=== PATIENT | female | born 1975 | race Caucasian/White ===

== ENCOUNTER → 2016-04-27 | Outpatient (CLI) | payer MEDICARE, OTHER ==
[2016-04-27 13:59] LABS: Non-African American GFR(MDRD) >60 (>60 ml/min/1.73 sqM)
--- NOTE | 2016-04-27 15:11 | MR ---
EXAMINATION TYPE: MR brain wo/w con DATE OF EXAM: 04/27/2016 2:55 PM COMPARISON: NONE HISTORY: Headaches and dizziness. TECHNIQUE: Multiplanar, multisequence images of the brain and brainstem is performed without and with IV contras t, utilizing 20 mL intravenous MultiHance . FINDINGS: Diffusion weighted images demonstrate no evidence of a recent infarct or other diffusion ab normality. There is no extra-axial fluid collection or significant white matter signal abnormality. The ventricular system and cisternal spaces are normal in size and appearance. The brain volume is age appropriate. Midline structures demonstrate normal morphology. The craniocervical junction appears within normal limits. Post contrast images demonstrate no abnormal enhancement. The dural venous sinuses appear pa tent. Mild mucosal thickening inferior left maxillary sinus and ethmoid sinuses bilaterally, left sli ghtly worse than right is present. The globes are intact bilaterally. No suspicious opacification of mastoid air cells is seen. IMPRESSION: Some mild chronic paranasal sinus disease as detailed above otherwise unremarkable study.
== END | disposition home or self-care (01) ==
LOC: RADMRIMAIN 13:14
PROVIDERS: ATTEND Family Medicine
DX: R51 Headache (principal)
CPT/HCPCS: 82565; 70553; A9577

== ENCOUNTER 2017-05-17 00:27 | Emergency (ER) | payer BC, MEDICARE ==
[2017-05-17 00:45] VITALS: RESP 18
--- NOTE | 2017-05-17 01:07 | ED ---
General Adult HPI - General Chief complaint: Upper Respiratory Infection Stated complaint: Cough/Sinus/NVD Time Seen by Provider: 05/17/17 00:50 Source: patient, RN notes reviewed Mode of arrival: ambulatory Limitations: no limitations - History of Present Illness Initial comments: This a 42-year-old female presents emergency Department with multiple complaints. Patient states she's had cough congestion last 2 weeks. Patient states it's not improving she's been trying some [id number] medications. She states she is concerned that she may have pneumonia as she's had in the past. Which apparently complains of sinus congestion runny nose. Patient states her cough is productive at times no shortness breath and denies any chest pain. She states her last one week she's felt that she's had some dysuria and started having some dull achy pain on the left flank region. She denies any hematuria she does admit to some dysuria with no vaginal bleeding or vaginal discharge. - Related Data Home Medications Medication Instructions Recorded Confirmed Albuterol Sulfate [Proair Hfa] 1 - 2 puff INHALATION RT-Q6H PRN 04/12/14 Atomoxetine HCl [Strattera] 100 mg PO QAM 01/31/16 01/31/16 Cariprazine HCl [Vraylar] 3 mg PO DAILY 01/31/16 01/31/16 Divalproex [Depakote] 250 mg PO BID 01/31/16 01/31/16 Insulin Aspart Protam & Aspart 25 unit SQ AC-TID 01/31/16 01/31/16 [NovoLOG MIX 70-30 Flexpen] Insulin Detemir [Levemir] 125 unit SQ HS 01/31/16 01/31/16 Nortriptyline [Pamelor] 10 mg PO HS 01/31/16 01/31/16 QUEtiapine [SEROquel] 400 mg PO HS 01/31/16 01/31/16 clonazePAM [KlonoPIN] 0.5 mg PO TID 01/31/16 01/31/16 rOPINIRole HCL [Requip] 2 mg PO HS 01/31/16 01/31/16 Previous Rx's Medication Instructions Recorded Atorvastatin [Lipitor] 40 mg PO DAILY #30 tab 02/01/16 Fenofibrate [Lofibra] 160 mg PO DAILY #30 tab 02/01/16 Metoprolol Tartrate [Lopressor] 25 mg PO BID #60 tab 02/01/16 Amoxicillin/Potassium Clav 1 tab PO Q12HR #20 tab 05/17/17 [Augmentin 875-125 Tablet] Phenazopyridine [Pyridium] 200 mg PO TID #6 tablet 05/17/17 Allergies Allergy/AdvReac Type Severity Reaction Status Date / Time shellfish derived Allergy Unknown Anaphylaxis Verified 05/17/17 00:41 celery Allergy Rash/Hives Verified 05/17/17 00:41 codeine Allergy Unknown Verified 05/17/17 00:41 gabapentin Allergy Unknown Verified 05/17/17 00:41 iodine Allergy Anaphylaxis Verified 05/17/17 00:41 morphine Allergy Unknown Verified 05/17/17 00:41 onion Allergy Unknown Verified 05/17/17 00:41 Sulfa (Sulfonamide Allergy Unknown Verified 05/17/17 00:41 Antibiotics) tomato Allergy Nausea & Verified 05/17/17 00:41 Vomiting & Diarrhea tramadol Allergy Unknown Verified 05/17/17 00:41 cilanto Allergy Anaphylaxis Uncoded 05/17/17 00:41 Review of Systems ROS Statement: Those systems with pertinent positive or pertinent negative responses have been documented in the HPI. ROS Other: All systems not noted in ROS Statement are negative. Past Medical History Past Medical History: Asthma, Diabetes Mellitus, Fibromyalgia Additional Past Medical History / Comment(s): NEUROPATHY, SPINA BIFIDA, GOUT, urinary retention, chronic pain to her back and legs History of Any Multi-Drug Resistant Organisms: None Reported Past Surgical History: Section, Cholecystectomy, Hysterectomy, Orthopedic Surgery, Tonsillectomy Additional Past Surgical History / Comment(s): Arthroscopic LEFT KNEE, KIDNEY SURGERY AT AGE 7 Past Anesthesia/Blood Transfusion Reactions: No Reported Reaction Past Psychological History: Anxiety, Bipolar, Depression, Schizophrenia Smoking Status: Never smoker Past Alcohol Use History: None Reported Past Drug Use History: None Reported - Past Family History Mother Additional Family Medical History / Comment(s): Mother is alive at age 60 with history of RA, Fibromyalgia. Father Family Medical History: Diabetes Mellitus Additional Family Medical History / Comment(s): Father is alive at age 68 with history of diabetes and sleep apnea. Brother(s) Additional Family Medical History / Comment(s): Patient has 2 brothers. One is healthy and the other has mental health issues and chronic back pain. She does not have any sisters. She has one daughter with bipolar and ADHD. General Exam Limitations: no limitations General appearance: alert, in no apparent distress Head exam: Present: atraumatic, normocephalic, normal inspection Eye exam: Present: normal appearance, PERRL, EOMI. Absent: scleral icterus, conjunctival injection, periorbital swelling ENT exam: Present: normal exam, normal oropharynx, mucous membranes moist, TM's normal bilaterally, normal external ear exam Neck exam: Present: normal inspection, full ROM. Absent: tenderness, meningismus, lymphadenopathy Respiratory exam: Present: normal lung sounds bilaterally. Absent: respiratory distress, wheezes, rales, rhonchi, stridor Cardiovascular Exam: Present: regular rate, normal rhythm, normal heart sounds. Absent: systolic murmur, diastolic murmur, rubs, gallop, clicks GI/Abdominal exam: Present: soft, normal bowel sounds. Absent: distended, tenderness, guarding, rebound, rigid Back exam: Present: full ROM. Absent: tenderness, CVA tenderness (R), CVA tenderness (L) Course Vital Signs 05/17/17 05/17/17 00:41 01:15 Temperature 98.2 F Pulse Rate 114 H Respiratory 18 18 Rate Blood Pressure 133/75 O2 Sat by Pulse 96 Oximetry Medical Decision Making - Medical Decision Making 42-year-old female presented emergency department for cough and congestion. Chest x-ray is unremarkable. Patient has acute sinusitis will be given antibiotics. Patient did have some dysuria and frequency though most likely related to her hyperglycemia. Patient is advised to check her blood sugar more frequently she'll follow-up with her primary care physician return parameters were discussed. - Lab Data Lab Results 05/17/17 05/17/17 Range/Units 00:45 01:43 POC Glucose (mg/dL) 220 H (75-99) mg/dL POC Glu [employer] ID Juanita, [place] Urine Color Light Yellow Urine Appearance Clear (Clear) Urine pH 7.0 (5.0-8.0) Ur Specific [place] 1.021 (1.001-1.035) Urine Protein Negative (Negative) Urine Glucose (UA) 4+ H (Negative) Urine Ketones Negative (Negative) Urine Blood Negative (Negative) Urine Nitrite Negative (Negative) Urine Bilirubin Negative (Negative) Urine Urobilinogen <2.0 (<2.0) mg/dL Ur Leukocyte Esterase Negative (Negative) Disposition Clinical Impression: Sinusitis, Dysuria, Hyperglycemia Disposition: HOME SELF-CARE Condition: Stable Instructions: Upper Respiratory Infection (ED) Additional Instructions: Please return to the Emergency Department if symptoms worsen or any other concerns. Prescriptions: Amoxicillin/Potassium Clav [Augmentin 875-125 Tablet] 1 tab PO Q12HR #20 tab Phenazopyridine [Pyridium] 200 mg PO TID #6 tablet Referrals: Trace Clark DO [Primary Care Provider] - 1-2 days Time of Disposition: 01:49
[2017-05-17 01:12] LABS: Appearance,Urine Clear (Clear); Bilirubin,Urine Negative (Negative); Blood,Urine Negative (Negative); Color,Urine Light Yellow; Glucose,Urine (UA) 4+ (Negative); Ketones,Urine Negative (Negative); Leukocyte Esterase,Urine Negative (Negative); Nitrite,Urine Negative (Negative); Protein,Urine Negative (Negative); Specific Gravity,Urine 1.021 (1.001-1.035); Urobilinogen,Urine <2.0 mg/dL (<2.0)
--- NOTE | 2017-05-17 01:39 | XR ---
EXAMINATION TYPE: XR chest 2V DATE OF EXAM: 05/17/2017 COMPARISON: NONE HISTORY: Asthma and cough TECHNIQUE: Frontal and lateral views of the chest are obtained. FINDINGS: Heart and mediastinum are normal. Lungs are clear. Diaphragm is normal. Bony thorax appear s normal. IMPRESSION: No cardiopulmonary disease. Significant calcific tendinitis noted at the right shoulder joint.
[2017-05-17 01:48] LABS: Glucose,Whole Blood 220 mg/dL (75-99)
[2017-05-17 02:05] VITALS: PULSE 98; TEMP 98
[2017-05-17 02:06] VITALS: BP 145/91
== END 2017-05-17 02:06 | disposition home or self-care (01) ==
LOC: EC 00:27
DX: J32.9 Chronic sinusitis, unspecified (principal); E11.65 Type 2 diabetes mellitus with hyperglycemia; R30.0 Dysuria; M79.7 Fibromyalgia; G62.9 Polyneuropathy, unspecified; Q05.9 Spina bifida, unspecified; F41.9 Anxiety disorder, unspecified; F31.9 Bipolar disorder, unspecified; F20.9 Schizophrenia, unspecified; Z79.4 Long term (current) use of insulin; Z79.899 Other long term (current) drug therapy; Z88.2 Allergy status to sulfonamides; Z88.5 Allergy status to narcotic agent; Z88.8 Allergy status to other drugs, medicaments and biological substances; Z91.013 Allergy to seafood; Z91.018 Allergy to other foods; Z91.048 Other nonmedicinal substance allergy status
CPT/HCPCS: 36415; 71046; 81003; 99283

== ENCOUNTER 2017-07-05 19:57 | Emergency (ER) | payer BC, MEDICARE ==
[2017-07-05] MEDS ORDERED: KETOROLAC 30 MG/ML 1 ML VIAL IVP STA ×2 (21:08→22:32)
[2017-07-05] MEDS ORDERED: SODIUM CHLORIDE 0.9% 1,000 ML IV STA (21:08)
[2017-07-05] MEDS ORDERED: diphenhydrAMINE 50 MG/ML 1 ML VIAL IVP STA (21:08)
[2017-07-05] MEDS ORDERED: METOCLOPRAMIDE 5 MG/ML 2 ML VIAL IVP STA (21:08)
[2017-07-05 22:07] VITALS: TEMP 97.7
--- NOTE | 2017-07-05 22:17 | ED ---
Headache HPI - General Chief Complaint: Headache Stated Complaint: mirgaine/back spasms Time Seen by Provider: 07/05/17 21:01 Source: RN notes reviewed Mode of arrival: ambulatory Limitations: no limitations - History of Present Illness Initial Comments: This is a 42-year-old female who presents to the emergency department with chief complaint of migraine and back spasms for the past 3 days. Patient states that she does have a history of migraines but that this current migraine is the worst one that she has had in a while. She states that this is worse than normal. She describes the headache as constant, sharp and pounding and involves the left side of her head with radiation towards the back of the head. Patient admits to associated nausea and vomiting. She states that nothing has made the headache better or worse. She's been taking [id number] Tylenol and Motrin with minimal relief. Patient does report a history of chronic back pain. She states that she takes medical marijuana but no prescription medications. Denies any recent falls, injuries or trauma. Denies fevers or chills, chest pain or shortness of breath, abdominal pain. Denies saddle paresthesias or loss of bladder or bowel function. Denies dysuria or hematuria. - Related Data Home Medications Medication Instructions Recorded Confirmed Albuterol Sulfate [Proair Hfa] 1 - 2 puff INHALATION RT-Q6H PRN 04/12/14 Atomoxetine HCl [Strattera] 100 mg PO QAM 01/31/16 07/05/17 Divalproex [Depakote] 250 mg PO BID 01/31/16 07/05/17 Insulin Aspart Protam & Aspart 25 unit SQ AC-TID 01/31/16 07/05/17 [NovoLOG MIX 70-30 Flexpen] Insulin Detemir [Levemir] 100 unit SQ BID 01/31/16 07/05/17 Nortriptyline [Pamelor] 10 mg PO HS 01/31/16 07/05/17 clonazePAM [KlonoPIN] 0.5 mg PO TID 01/31/16 07/05/17 rOPINIRole HCL [Requip] 2 mg PO HS 01/31/16 07/05/17 Previous Rx's Medication Instructions Recorded Atorvastatin [Lipitor] 40 mg PO DAILY #30 tab 02/01/16 Fenofibrate [Lofibra] 160 mg PO DAILY #30 tab 02/01/16 Metoprolol Tartrate [Lopressor] 25 mg PO BID #60 tab 02/01/16 Cyclobenzaprine [Flexeril] 10 mg PO TID #12 tab 07/05/17 Allergies Allergy/AdvReac Type Severity Reaction Status Date / Time shellfish derived Allergy Unknown Anaphylaxis Verified 07/05/17 20:36 celery Allergy Rash/Hives Verified 07/05/17 20:36 codeine Allergy Unknown Verified 07/05/17 20:36 gabapentin Allergy Unknown Verified 07/05/17 20:36 iodine Allergy Anaphylaxis Verified 07/05/17 20:36 morphine Allergy Unknown Verified 07/05/17 20:36 onion Allergy Unknown Verified 07/05/17 20:36 Sulfa (Sulfonamide Allergy Unknown Verified 07/05/17 20:36 Antibiotics) tomato Allergy Nausea & Verified 07/05/17 20:36 Vomiting & Diarrhea tramadol Allergy Unknown Verified 07/05/17 20:36 cilanto Allergy Anaphylaxis Uncoded 07/05/17 20:01 Review of Systems ROS Statement: Those systems with pertinent positive or pertinent negative responses have been documented in the HPI. ROS Other: All systems not noted in ROS Statement are negative. Past Medical History Past Medical History: Asthma, Diabetes Mellitus, Fibromyalgia Additional Past Medical History / Comment(s): NEUROPATHY, SPINA BIFIDA, GOUT, urinary retention, chronic pain to her back and legs History of Any Multi-Drug Resistant Organisms: None Reported Past Surgical History: Section, Cholecystectomy, Hysterectomy, Orthopedic Surgery, Tonsillectomy Additional Past Surgical History / Comment(s): Arthroscopic LEFT KNEE, KIDNEY SURGERY AT AGE 7 Past Anesthesia/Blood Transfusion Reactions: No Reported Reaction Past Psychological History: Anxiety, Bipolar, Depression, Schizophrenia Smoking Status: Never smoker Past Alcohol Use History: None Reported Past Drug Use History: None Reported - Past Family History Mother Additional Family Medical History / Comment(s): Mother is alive at age 60 with history of RA, Fibromyalgia. Father Family Medical History: Diabetes Mellitus Additional Family Medical History / Comment(s): Father is alive at age 68 with history of diabetes and sleep apnea. Brother(s) Additional Family Medical History / Comment(s): Patient has 2 brothers. One is healthy and the other has mental health issues and chronic back pain. She does not have any sisters. She has one daughter with bipolar and ADHD. General Exam - General Exam Comments Initial Comments: General: Awake and alert, well-developed; in no apparent distress. HEENT: Head atraumatic, normocephalic. Pupils are equal, round and reactive to light. Extraocular movements intact. Oropharynx moist without erythema or exudate. Neck: Supple. Normal ROM. No tenderness. Cardiovascular: Regular rate and rhythm. No murmurs, rubs or gallops. Chest symmetrical. Respiratory: Lungs clear to auscultation bilaterally. No wheezes, rales or rhonchi. Normal respiratory effort with no use of accessory muscles. Musculoskeletal: Normal ROM of spine. There is tenderness on palpation of thoracic and lumbar paraspinal muscles. Sensation is intact. Pedal pulses are 2+, equal and palpable bilaterally. Skin: [place], warm and dry without rashes or lesions. Neurological: Alert and oriented x3. CN II-XII grossly intact. Speech is fluent and answers are appropriate. No focal neuro deficits. Psychiatric: Normal mood and affect. No overt signs of depression or anxiety noted. Limitations: no limitations Course Vital Signs 07/05/17 07/05/17 07/05/17 19:59 21:01 22:50 Temperature 98.4 F 97.7 F Pulse Rate 103 H 98 96 Respiratory 18 16 19 Rate Blood Pressure 130/70 125/58 118/70 O2 Sat by Pulse 99 98 96 Oximetry Medical Decision Making - Medical Decision Making This is a 42-year-old female who presents to the emergency department with chief complaint of headache and back spasms. Patient states she does have a history of migraines but that the current headache is worse than her normal. Computed tomography scan of the brain was obtained and revealed no acute abnormalities. Patient given headache cocktail as well as Norflex while in the emergency department. Patient states that her symptoms have markedly improved. She will be discharged home with a prescription for Flexeril. Recommended follow-up with her primary care physician. Patient is in agreement with plan and voices understanding. She is in no acute distress. All questions answered. - Radiology Data Radiology results: report reviewed CT brain without contrast conclusion: Left maxillary minimal sinusitis. Negative computed tomography scan of the brain. Disposition Clinical Impression: Migraine, Back muscle spasm Disposition: HOME SELF-CARE Condition: Good Instructions: Acute Headache (ED), Muscle Spasm (ED) Additional Instructions: Please take medications as prescribed. Please follow up with primary care provider within 1-2 days. Return to emergency department if symptoms should worsen or any concerns arise. Prescriptions: Cyclobenzaprine [Flexeril] 10 mg PO TID #12 tab Referrals: Trace Clark DO [Primary Care Provider] - 1-2 days Time of Disposition: 23:34
--- NOTE | 2017-07-05 22:21 | CT ---
EXAMINATION TYPE: CT brain wo con DATE OF EXAM: 07/05/2017 COMPARISON: NONE HISTORY: Migrane x3 days CT DLP: 1032.2 mGycm. Automated Exposure Control for Dose Reduction was Utilized. TECHNIQUE: CT scan of the head is performed without contrast. FINDINGS: Ventricles of normal size. There is no mass effect nor midline shift. There is no sign of intracranial hemorrhage. There is small fluid level in the left maxillary sinus. The calvarium appea rs intact. I see no bony destructive process. CONCLUSION: Left maxillary minimal sinusitis. Negative CT scan of the brain.
[2017-07-05] MEDS ORDERED: ORPHENADRINE 30 MG/ML 2 ML VIAL IVP STA (22:32)
[2017-07-06 00:03] VITALS: BP 119/67; PULSE 85; RESP 16
== END 2017-07-06 00:03 | disposition home or self-care (01) ==
LOC: EC 19:57
DX: G43.909 Migraine, unspecified, not intractable, without status migrainosus (principal); M62.830 Muscle spasm of back; E11.40 Type 2 diabetes mellitus with diabetic neuropathy, unspecified; F20.9 Schizophrenia, unspecified; F31.9 Bipolar disorder, unspecified; F41.9 Anxiety disorder, unspecified; Z79.4 Long term (current) use of insulin; Z79.899 Other long term (current) drug therapy; Z88.5 Allergy status to narcotic agent; Z88.6 Allergy status to analgesic agent; Z88.2 Allergy status to sulfonamides; Z91.018 Allergy to other foods; Z88.8 Allergy status to other drugs, medicaments and biological substances
CPT/HCPCS: 70450; 99283; 96374; 96375 ×3; 96376; J1200; J2360; J2765; J1885

== ENCOUNTER 2017-07-31 18:58 | Emergency (ER) | payer BC, MEDICARE ==
[2017-07-31] MEDS ORDERED: ONDANSETRON 4 MG/2 ML VIAL IVP STA (19:20)
[2017-07-31] MEDS ORDERED: PANTOPRAZOLE 40 MG/10 ML VIAL IVP STA (19:20)
[2017-07-31] MEDS ORDERED: SODIUM CHLORIDE 0.9% 1,000 ML IV STA (19:20)
[2017-07-31] MEDS ORDERED: MORPHINE SULFATE 4 MG/ML SYRINGE IVP STA ×2 (19:26→21:08)
[2017-07-31] MEDS ORDERED: FAMOTIDINE 20 MG/2 ML VIAL IV STA (19:26)
[2017-07-31] MEDS ORDERED: diphenhydrAMINE 50 MG/ML 1 ML VIAL IVP STA (19:26)
--- NOTE | 2017-07-31 19:27 | ED ---
General Adult HPI - General Chief complaint: Abdominal Pain Stated complaint: Back pain Time Seen by Provider: 07/31/17 19:26 Source: patient, RN notes reviewed, old records reviewed Mode of arrival: ambulatory Limitations: no limitations - History of Present Illness Initial comments: This is a 42-year-old female the ER for evaluation. Patient is ER for flank pain back pain and cortical kidney pain. Kidney stone pain. Patient has history of kidney stones. Also states her blood sugars been running high. No fevers. No nausea no vomiting. No other abdominal pain. No non-diarrhea no urinary complaints - Related Data Home Medications Medication Instructions Recorded Confirmed Albuterol Sulfate [Proair Hfa] 1 - 2 puff INHALATION RT-Q6H PRN 04/12/14 Atomoxetine HCl [Strattera] 100 mg PO QAM 01/31/16 07/31/17 Divalproex [Depakote] 250 mg PO BID 01/31/16 07/31/17 Insulin Aspart Protam & Aspart 25 unit SQ AC-TID 01/31/16 07/31/17 [NovoLOG MIX 70-30 Flexpen] Insulin Detemir [Levemir] 80 unit SQ AC-BRKFST 01/31/16 07/31/17 Nortriptyline [Pamelor] 10 mg PO HS 01/31/16 07/31/17 clonazePAM [KlonoPIN] 0.5 mg PO TID 01/31/16 07/31/17 rOPINIRole HCL [Requip] 2 mg PO HS 01/31/16 07/31/17 Insulin Detemir [Levemir] 90 unit SQ AC-SUPPER 07/31/17 07/31/17 Previous Rx's Medication Instructions Recorded Atorvastatin [Lipitor] 40 mg PO DAILY #30 tab 02/01/16 Fenofibrate [Lofibra] 160 mg PO DAILY #30 tab 02/01/16 Metoprolol Tartrate [Lopressor] 25 mg PO BID #60 tab 02/01/16 Cyclobenzaprine [Flexeril] 10 mg PO TID #12 tab 07/05/17 HYDROcodone/APAP 5-325MG [[place] 1 tab PO Q6HR PRN #20 tab 07/31/17 5-325] Naproxen [Naprosyn] 500 mg PO Q12HR PRN #30 tab 07/31/17 Ondansetron Odt [Zofran ODT] 4 mg PO Q8HR PRN #20 tab 07/31/17 Allergies Allergy/AdvReac Type Severity Reaction Status Date / Time shellfish derived Allergy Unknown Anaphylaxis Verified 07/31/17 20:00 celery Allergy Rash/Hives Verified 07/31/17 20:00 codeine Allergy Unknown Verified 07/31/17 20:00 gabapentin Allergy Unknown Verified 07/31/17 20:00 iodine Allergy Anaphylaxis Verified 07/31/17 20:00 morphine Allergy Unknown Verified 07/31/17 20:00 onion Allergy Unknown Verified 07/31/17 20:00 Sulfa (Sulfonamide Allergy Unknown Verified 07/31/17 20:00 Antibiotics) tomato Allergy Nausea & Verified 07/31/17 20:00 Vomiting & Diarrhea tramadol Allergy Unknown Verified 07/31/17 20:00 cilanto Allergy Anaphylaxis Uncoded 07/05/17 20:01 Review of Systems ROS Statement: Those systems with pertinent positive or pertinent negative responses have been documented in the HPI. ROS Other: All systems not noted in ROS Statement are negative. Past Medical History Past Medical History: Asthma, Diabetes Mellitus, Fibromyalgia Additional Past Medical History / Comment(s): NEUROPATHY, SPINA BIFIDA, GOUT, urinary retention, chronic pain to her back and legs History of Any Multi-Drug Resistant Organisms: None Reported Past Surgical History: Section, Cholecystectomy, Hysterectomy, Orthopedic Surgery, Tonsillectomy Additional Past Surgical History / Comment(s): Arthroscopic LEFT KNEE, KIDNEY SURGERY AT AGE 7 Past Anesthesia/Blood Transfusion Reactions: No Reported Reaction Past Psychological History: Anxiety, Bipolar, Depression, Schizophrenia Smoking Status: Never smoker Past Alcohol Use History: None Reported Past Drug Use History: None Reported - Past Family History Mother Additional Family Medical History / Comment(s): Mother is alive at age 60 with history of RA, Fibromyalgia. Father Family Medical History: Diabetes Mellitus Additional Family Medical History / Comment(s): Father is alive at age 68 with history of diabetes and sleep apnea. Brother(s) Additional Family Medical History / Comment(s): Patient has 2 brothers. One is healthy and the other has mental health issues and chronic back pain. She does not have any sisters. She has one daughter with bipolar and ADHD. General Exam Limitations: no limitations General appearance: alert, in no apparent distress Head exam: Present: atraumatic, normocephalic, normal inspection Eye exam: Present: normal appearance, PERRL, EOMI. Absent: scleral icterus, conjunctival injection, periorbital swelling ENT exam: Present: normal exam, mucous membranes moist Neck exam: Present: normal inspection. Absent: tenderness, meningismus, lymphadenopathy Respiratory exam: Present: normal lung sounds bilaterally. Absent: respiratory distress, wheezes, rales, rhonchi, stridor Cardiovascular Exam: Present: regular rate, normal rhythm, normal heart sounds. Absent: systolic murmur, diastolic murmur, rubs, gallop, clicks GI/Abdominal exam: Present: soft, normal bowel sounds. Absent: distended, tenderness, guarding, rebound, rigid Extremities exam: Present: normal inspection, full ROM, normal capillary refill. Absent: tenderness, pedal edema, joint swelling, calf tenderness Back exam: Present: normal inspection Neurological exam: Present: alert, oriented X3, CN II-XII intact Psychiatric exam: Present: normal affect, normal mood Skin exam: Present: warm, dry, intact, normal color. Absent: rash Course Vital Signs 07/31/17 07/31/17 19:10 20:44 Temperature 98.4 F 98.7 F Pulse Rate 62 74 Respiratory 18 18 Rate Blood Pressure 105/62 122/71 O2 Sat by Pulse 98 95 Oximetry Medical Decision Making - Lab Data Result diagrams: 07/31/17 20:37 Lab Results 07/31/17 Range/Units 20:37 WBC 10.1 (3.8-10.6) k/uL RBC 4.75 (3.80-5.40) m/uL Hgb 14.5 (11.4-16.0) gm/dL Hct 42.2 (34.0-46.0) % MCV 88.9 (80.0-100.0) fL MCH 30.4 (25.0-35.0) pg MCHC 34.2 (31.0-37.0) g/dL RDW 13.4 (11.5-15.5) % Plt Count 317 (150-450) k/uL Neutrophils % 49 % Lymphocytes % 41 % Monocytes % 5 % Eosinophils % 3 % Basophils % 1 % Neutrophils # 5.0 (1.3-7.7) k/uL Lymphocytes # 4.1 (1.0-4.8) k/uL Monocytes # 0.5 (0-1.0) k/uL Eosinophils # 0.3 (0-0.7) k/uL Basophils # 0.1 (0-0.2) k/uL Disposition Clinical Impression: Kidney stone, Flank pain Disposition: HOME SELF-CARE Condition: Good Instructions: Flank Pain (ED), Kidney Stones (ED) Prescriptions: HYDROcodone/APAP 5-325MG [[place] 5-325] 1 tab PO Q6HR PRN #20 tab PRN Reason: Pain Naproxen [Naprosyn] 500 mg PO Q12HR PRN #30 tab PRN Reason: Pain Ondansetron Odt [Zofran ODT] 4 mg PO Q8HR PRN #20 tab PRN Reason: nausea/vomiting Is patient prescribed a controlled substance at d/c from ED?: Yes If prescribed controlled substance>3 days was MAPS reviewed?: No When asked, does pt state using other controlled substances?: Yes Referrals: Trace Clark DO [Primary Care Provider] - 1-2 days
[2017-07-31 20:59] LABS: Basophils # (A) 0.1 k/uL (0-0.2); Basophils % (A) 1 %; Eosinophils # (A) 0.3 k/uL (0-0.7); Eosinophils % (A) 3 %; HCT 42.2 % (34.0-46.0); HGB 14.5 gm/dL (11.4-16.0); Lymphocytes # (A) 4.1 k/uL (1.0-4.8); Lymphocytes % (A) 41 %; MCH 30.4 pg (25.0-35.0); MCHC 34.2 g/dL (31.0-37.0); MCV 88.9 fL (80.0-100.0); Mean Platelet Volume 7.6; Monocytes # (A) 0.5 k/uL (0-1.0); Monocytes % (A) 5 %; Neutrophils % (A) 49 %; Platelet Count 317 k/uL (150-450); RBC 4.75 m/uL (3.80-5.40); RDW 13.4 % (11.5-15.5); WBC 10.1 k/uL (3.8-10.6)
[2017-07-31 21:17] LABS: ALT 33 U/L (9-52); AST 21 U/L (14-36); Albumin 4.3 g/dL (3.5-5.0); Alkaline Phosphatase 107 U/L (38-126); Amylase 42 U/L (30-110); Anion Gap 12 mmol/L; Blood Urea Nitrogen 10 mg/dL (7-17); Calcium 9.5 mg/dL (8.4-10.2); Carbon Dioxide 28 mmol/L (22-30); Chloride 100 mmol/L (98-107); Glucose 189 mg/dL (74-99); Lipase 73 U/L (23-300); Potassium 3.6 mmol/L (3.5-5.1); Sodium 140 mmol/L (137-145); Total Bilirubin 0.3 mg/dL (0.2-1.3); Total Protein 6.8 g/dL (6.3-8.2)
--- NOTE | 2017-07-31 21:57 | CT ---
EXAMINATION TYPE: CT abdomen pelvis wo con DATE OF EXAM: 07/31/2017 COMPARISON: NONE HISTORY: Bilateral flank pain. History of renal stones. CT DLP: 914.3 mGycm Automated exposure control for dose reduction was used. TECHNIQUE: Helical acquisition of images was performed from the lung bases through the pelvis. FINDINGS: Lung bases are clear. There is no pleural effusion. Heart size is normal. Liver spleen pancreas appear normal. There are clips from cholecystectomy. Bile ducts are not dilated . Kidneys show satisfactory contrast opacification. There is no hydronephrosis. There is a 1.5 cm rou nded low density area in the left adrenal gland. There is no retroperitoneal adenopathy. There is no ascites. I see no intestinal wall thickening. The re are no dilated loops. Bladder distends smoothly. There is no sign of a pelvic mass. There is no fr ee fluid in the pelvis. Appendix is not seen. There is no sign of appendicitis. The kidneys have normal size and contour. There is no hydronephrosis. Ureters are not dilated. There is no evidence of a renal mass or calculus. I see no bony destructive process. Lumbar spine is intact . IMPRESSION: NO EVIDENCE OF RENAL STONE OR OBSTRUCTION. NO SIGN OF ACUTE ABDOMEN AND PELVIS.
[2017-07-31 22:25] LABS: Amorphous Sediment,Urine Rare /hpf; Appearance,Urine Clear (Clear); Bacteria,Urine Rare /hpf; Bilirubin,Urine Negative (Negative); Blood,Urine Negative (Negative); Color,Urine Light Yellow; Glucose,Urine (UA) 3+ (Negative); Ketones,Urine Negative (Negative); Leukocyte Esterase,Urine Trace (Negative); Mucus,Urine Rare /hpf; Nitrite,Urine Negative (Negative); Protein,Urine Negative (Negative); RBC,Urine <1 /hpf (0-5); Specific Gravity,Urine 1.014 (1.001-1.035); Squamous Epithelial Cell,Urine 2 /hpf (0-4); Urobilinogen,Urine <2.0 mg/dL (<2.0); WBC,Urine 3 /hpf (0-5)
[2017-07-31 23:01] VITALS: BP 111/63; PULSE 82; RESP 16; TEMP 98.6
== END 2017-07-31 23:18 | disposition home or self-care (01) ==
LOC: EC 18:58
DX: N20.0 Calculus of kidney (principal); E11.40 Type 2 diabetes mellitus with diabetic neuropathy, unspecified; J45.909 Unspecified asthma, uncomplicated; F31.9 Bipolar disorder, unspecified; F41.9 Anxiety disorder, unspecified; Z79.4 Long term (current) use of insulin; Z79.899 Other long term (current) drug therapy; Z88.2 Allergy status to sulfonamides; Z88.5 Allergy status to narcotic agent; Z88.8 Allergy status to other drugs, medicaments and biological substances; Z91.013 Allergy to seafood; Z91.018 Allergy to other foods; Z91.048 Other nonmedicinal substance allergy status; Z90.49 Acquired absence of other specified parts of digestive tract; Z98.890 Other specified postprocedural states; Z82.69 Family history of other diseases of the musculoskeletal system and connective tissue
CPT/HCPCS: 36415; 80053; 82150; 82009; 83690; 85025; 81001; 87086; 74176; 99285; 96374; 96375 ×4; 96376; 96361; J2270; J1200; J2405; C9113

== ENCOUNTER 2017-08-27 15:56 | Emergency (ER) | payer BC, MEDICARE ==
[2017-08-27] MEDS ORDERED: SODIUM CHLORIDE 0.9% 1,000 ML IV STA (16:35)
[2017-08-27] MEDS ORDERED: ONDANSETRON 4 MG/2 ML VIAL IVP STA (16:35)
[2017-08-27] MEDS ORDERED: MORPHINE SULFATE 2 MG/ML SYRINGE IV STA (16:38)
--- NOTE | 2017-08-27 16:38 | ED ---
General Adult HPI - General Chief complaint: Back Pain/Injury Stated complaint: Back pain Time Seen by Provider: 08/27/17 16:21 Source: patient Mode of arrival: ambulatory Limitations: no limitations - History of Present Illness Initial comments: Patient is a 42-year-old female presenting for abdominal pain and back pain. Patient states that for the last month, she has been having this discomfort and worsening in intensity. The abdominal pain is in the lower abdomen and radiating to the bilateral flanks. It is sharp now constant. At that time when it was originally starting, she was diagnosed with kidney stone for which she has chronic problems with. She admits to nausea and vomiting as well as decreased urination. She also has been having chills but no fevers. - Related Data Home Medications Medication Instructions Recorded Confirmed Albuterol Sulfate [Proair Hfa] 1 - 2 puff INHALATION RT-Q6H PRN 04/12/14 Atomoxetine HCl [Strattera] 100 mg PO QAM 01/31/16 07/31/17 Divalproex [Depakote] 250 mg PO BID 01/31/16 07/31/17 Insulin Aspart Protam & Aspart 25 unit SQ AC-TID 01/31/16 07/31/17 [NovoLOG MIX 70-30 Flexpen] Insulin Detemir [Levemir] 80 unit SQ AC-BRKFST 01/31/16 07/31/17 Nortriptyline [Pamelor] 10 mg PO HS 01/31/16 07/31/17 clonazePAM [KlonoPIN] 0.5 mg PO TID 01/31/16 07/31/17 rOPINIRole HCL [Requip] 2 mg PO HS 01/31/16 07/31/17 Insulin Detemir [Levemir] 90 unit SQ AC-SUPPER 07/31/17 07/31/17 Previous Rx's Medication Instructions Recorded Atorvastatin [Lipitor] 40 mg PO DAILY #30 tab 02/01/16 Fenofibrate [Lofibra] 160 mg PO DAILY #30 tab 02/01/16 Metoprolol Tartrate [Lopressor] 25 mg PO BID #60 tab 02/01/16 Cyclobenzaprine [Flexeril] 10 mg PO TID #12 tab 07/05/17 HYDROcodone/APAP 5-325MG [[place] 1 tab PO Q6HR PRN #20 tab 07/31/17 5-325] Naproxen [Naprosyn] 500 mg PO Q12HR PRN #30 tab 07/31/17 Ondansetron Odt [Zofran ODT] 4 mg PO Q8HR PRN #20 tab 07/31/17 Ondansetron Odt [Zofran Odt] 4 mg PO Q8HR PRN #15 tab 08/27/17 Allergies Allergy/AdvReac Type Severity Reaction Status Date / Time shellfish derived Allergy Unknown Anaphylaxis Verified 08/27/17 16:07 celery Allergy Rash/Hives Verified 08/27/17 16:07 codeine Allergy Unknown Verified 08/27/17 16:07 gabapentin Allergy Unknown Verified 08/27/17 16:07 iodine Allergy Anaphylaxis Verified 08/27/17 16:07 morphine Allergy Unknown Verified 08/27/17 16:07 onion Allergy Unknown Verified 08/27/17 16:07 Sulfa (Sulfonamide Allergy Unknown Verified 08/27/17 16:07 Antibiotics) tomato Allergy Nausea & Verified 08/27/17 16:07 Vomiting & Diarrhea tramadol Allergy Unknown Verified 08/27/17 16:07 cilanto Allergy Anaphylaxis Uncoded 08/27/17 16:07 Review of Systems ROS Statement: Those systems with pertinent positive or pertinent negative responses have been documented in the HPI. Constitutional: Negative for fatigue and fever. Positive for chills HENT: Negative for congestion. Respiratory: Negative for chest tightness, shortness of breath and wheezing. Negative for cough Cardiovascular: Negative for chest pain and palpitations. Gastrointestinal: Positive for abdominal pain. Negative for abdominal distention , diarrhea, positive for nausea and vomiting. Genitourinary: Negative for dysuria. Positive for changes in urinary frequency Musculoskeletal: Negative for back pain, neck pain and neck stiffness. Skin: Negative for color change. Neurological: Negative for dizziness, speech difficulty, weakness and light- headedness. Psychiatric/Behavioral: Negative for agitation and confusion. The patient is not nervous/anxious. ROS Other: All systems not noted in ROS Statement are negative. Past Medical History Past Medical History: Asthma, Diabetes Mellitus, Fibromyalgia Additional Past Medical History / Comment(s): NEUROPATHY, SPINA BIFIDA, GOUT, urinary retention, chronic pain to her back and legs History of Any Multi-Drug Resistant Organisms: None Reported Past Surgical History: Section, Cholecystectomy, Hysterectomy, Orthopedic Surgery, Tonsillectomy Additional Past Surgical History / Comment(s): Arthroscopic LEFT KNEE, KIDNEY SURGERY AT AGE 7 Past Anesthesia/Blood Transfusion Reactions: No Reported Reaction Past Psychological History: Anxiety, Bipolar, Depression, Schizophrenia Smoking Status: Never smoker Past Alcohol Use History: None Reported Past Drug Use History: None Reported - Past Family History Mother Additional Family Medical History / Comment(s): Mother is alive at age 60 with history of RA, Fibromyalgia. Father Family Medical History: Diabetes Mellitus Additional Family Medical History / Comment(s): Father is alive at age 68 with history of diabetes and sleep apnea. Brother(s) Additional Family Medical History / Comment(s): Patient has 2 brothers. One is healthy and the other has mental health issues and chronic back pain. She does not have any sisters. She has one daughter with bipolar and ADHD. General Exam - General Exam Comments Initial Comments: Constitutional: Pt is oriented to person, place, and time. Pt appears well- developed and well-nourished. No distress. HENT: Head: Normocephalic and atraumatic. Eyes: EOM are normal. Neck: Normal range of motion. Neck supple. Cardiovascular: Normal rate, regular rhythm, S1 normal, S2 normal and normal heart sounds. Exam reveals no gallop and no friction rub. No murmur heard. Pulmonary/Chest: Effort normal and breath sounds normal. No tachypnea and no bradypnea. No respiratory distress. No wheezes or rales noted. Abdominal: Soft. Bowel sounds are normal. Pt exhibits no shifting dullness, no distension, no pulsatile liver, no fluid wave, no abdominal bruit and no ascites. There is no tenderness. There is no rigidity, no rebound, no guarding, no tenderness at McBurney's point and negative Azul's sign. Musculoskeletal: Normal range of motion. Neurological: Pt is alert and oriented to person, place, and time. No cranial nerve deficit. Skin: Skin is warm and dry. No rash noted. Pt is not diaphoretic. No erythema. No pallor. Psychiatric: Pt has a normal mood and affect. Pt behavior is normal. Thought content normal. Limitations: no limitations Course Vital Signs 08/27/17 16:05 Temperature 98.0 F Pulse Rate 83 Respiratory 20 Rate Blood Pressure 119/72 O2 Sat by Pulse 100 Oximetry Medical Decision Making - Medical Decision Making Laboratory studies showed that there is no evidence of leukocytosis and urinalysis was performed and was contaminated. Based on physical exam as well as vital signs, it is not suspected that there is a urinary tract infection and therefore the patient was no surrounding antibiotics. Nonetheless, urine culture was obtained and pending. Additionally, CT abdomen was performed and showed no evidence of acute pathology including renal calculi or hydronephrosis. BMP also showed that renal function was preserved. It was explained that while there does not appear to be an emergent process, the etiology of the symptoms are still unclear and may need further workup as an outpatient if symptoms continue. Patient was reexamined prior to d/c and found to be resting comfortably in bed in no acute distress. Explained all labs and diagnostic test results and that we will discharge the patient home and patient is to follow up with PCP in 1-2 days and return to the ED if symptoms worsen. Pt is agreeable to plan. - Lab Data Result diagrams: 08/27/17 16:50 08/27/17 16:50 Lab Results 08/27/17 08/27/17 08/27/17 Range/Units 16:50 16:50 17:00 WBC 8.5 (3.8-10.6) k/uL RBC 5.25 (3.80-5.40) m/uL Hgb 16.3 H (11.4-16.0) gm/dL Hct 47.5 H (34.0-46.0) % MCV 90.4 (80.0-100.0) fL MCH 31.0 (25.0-35.0) pg MCHC 34.3 (31.0-37.0) g/dL RDW 14.2 (11.5-15.5) % Plt Count 319 (150-450) k/uL Neutrophils % 58 % Lymphocytes % 33 % Monocytes % 4 % Eosinophils % 2 % Basophils % 1 % Neutrophils # 5.0 (1.3-7.7) k/uL Lymphocytes # 2.8 (1.0-4.8) k/uL Monocytes # 0.4 (0-1.0) k/uL Eosinophils # 0.2 (0-0.7) k/uL Basophils # 0.1 (0-0.2) k/uL Sodium 144 (137-145) mmol/L Potassium 3.5 (3.5-5.1) mmol/L Chloride 101 (98-107) mmol/L Carbon Dioxide 28 (22-30) mmol/L Anion Gap 15 mmol/L BUN 13 (7-17) mg/dL Creatinine 0.71 (0.52-1.04) mg/dL Est GFR (CKD-EPI)AfAm >90 (>60 ml/min/1.73 sqM) Est GFR (CKD-EPI)NonAf >90 (>60 ml/min/1.73 sqM) Glucose 115 H (74-99) mg/dL Calcium 9.8 (8.4-10.2) mg/dL Magnesium 1.6 (1.6-2.3) mg/dL Total Bilirubin 0.5 (0.2-1.3) mg/dL AST 25 (14-36) U/L ALT 31 (9-52) U/L Alkaline Phosphatase 88 (38-126) U/L Total Protein 7.5 (6.3-8.2) g/dL Albumin 4.6 (3.5-5.0) g/dL Lipase 46 (23-300) U/L Urine Color Yellow Urine Appearance Cloudy H (Clear) Urine pH 6.0 (5.0-8.0) Ur Specific [place] 1.031 (1.001-1.035) Urine Protein 1+ H (Negative) Urine Glucose (UA) Negative (Negative) Urine Ketones 1+ H (Negative) Urine Blood Negative (Negative) Urine Nitrite Negative (Negative) Urine Bilirubin 1+ H (Negative) Urine Urobilinogen 3.0 (<2.0) mg/dL Ur Leukocyte Esterase Large H (Negative) Urine RBC 2 (0-5) /hpf Urine WBC 50 H (0-5) /hpf Ur Squamous Epith Cells 32 H (0-4) /hpf Amorphous Sediment Occasional H (None) /hpf Urine Bacteria Rare H (None) /hpf Urine Mucus Few H (None) /hpf Disposition Clinical Impression: Abdominal pain Disposition: HOME SELF-CARE Condition: Good Instructions: Abdominal Pain (ED) Prescriptions: Ondansetron Odt [Zofran Odt] 4 mg PO Q8HR PRN #15 tab PRN Reason: Nausea And Vomiting Is patient prescribed a controlled substance at d/c from ED?: No Referrals: Trace Clark DO [Primary Care Provider] - 1-2 days Time of Disposition: 18:27
[2017-08-27 17:02] LABS: Basophils # (A) 0.1 k/uL (0-0.2); Basophils % (A) 1 %; Eosinophils # (A) 0.2 k/uL (0-0.7); Eosinophils % (A) 2 %; HCT 47.5 % (34.0-46.0); HGB 16.3 gm/dL (11.4-16.0); Lymphocytes # (A) 2.8 k/uL (1.0-4.8); Lymphocytes % (A) 33 %; MCHC 34.3 g/dL (31.0-37.0); MCV 90.4 fL (80.0-100.0); Mean Platelet Volume 7.1; Monocytes # (A) 0.4 k/uL (0-1.0); Monocytes % (A) 4 %; Neutrophils % (A) 58 %; Platelet Count 319 k/uL (150-450); RBC 5.25 m/uL (3.80-5.40); RDW 14.2 % (11.5-15.5); WBC 8.5 k/uL (3.8-10.6)
[2017-08-27 17:12] LABS: ALT 31 U/L (9-52); AST 25 U/L (14-36); Albumin 4.6 g/dL (3.5-5.0); Alkaline Phosphatase 88 U/L (38-126); Anion Gap 15 mmol/L; Blood Urea Nitrogen 13 mg/dL (7-17); Calcium 9.8 mg/dL (8.4-10.2); Carbon Dioxide 28 mmol/L (22-30); Chloride 101 mmol/L (98-107); Glucose 115 mg/dL (74-99); Lipase 46 U/L (23-300); Magnesium 1.6 mg/dL (1.6-2.3); Potassium 3.5 mmol/L (3.5-5.1); Sodium 144 mmol/L (137-145); Total Bilirubin 0.5 mg/dL (0.2-1.3); Total Protein 7.5 g/dL (6.3-8.2)
--- NOTE | 2017-08-27 17:25 | CT ---
EXAMINATION TYPE: CT abdomen pelvis wo con DATE OF EXAM: 08/27/2017 HISTORY: Patient complains of bilateral flank pain, dysuria, and gross hematuria. CT DLP: 547.9 mGycm. Automated Exposure Control for Dose Reduction was Utilized. TECHNIQUE: CT scan of the abdomen and pelvis is performed without oral or IV contrast. COMPARISON: CT abdomen and pelvis from July 31, 2017 FINDINGS: Within the limitations of a non-contrast study, the following observations are made. LUNG BASES: No significant abnormality is appreciated. LIVER/GB: Cholecystectomy clips are redemonstrated. Liver remains diffusely low dense consistent with fatty infiltration. PANCREAS: No significant abnormality is seen. SPLEEN: No significant abnormality is seen. ADRENALS: No significant abnormality is seen. KIDNEYS: No renal calculi or hydronephrosis is present bilaterally. There is stable 1 cm low dense le zuleyma lower pole level left kidney felt to reflect simple cyst axial image 71. No intraluminal calculu s is seen in poorly distended bladder. BOWEL: No suspicious small or large bowel dilatation. Normal-appearing appendix is seen from base of cecum GENITAL ORGANS: Uterus is surgically absent. Remnant ovaries are not suspiciously enlarged. Scattered pelvic phleboliths are seen. LYMPH NODES: No greater than 1cm abdominal or pelvic lymph nodes are appreciated. OSSEOUS STRUCTURES: Spine is straightened with mild multilevel spurring. OTHER: No significant additional abnormality is seen. IMPRESSION: No renal stones or hydronephrosis is seen bilaterally. No suspicious new or acute finding is seen to account for patient's symptoms.
[2017-08-27 17:32] LABS: Amorphous Sediment,Urine Occasional /hpf; Appearance,Urine Cloudy (Clear); Bacteria,Urine Rare /hpf; Bilirubin,Urine 1+ (Negative); Blood,Urine Negative (Negative); Color,Urine Yellow; Glucose,Urine (UA) Negative (Negative); Ketones,Urine 1+ (Negative); Leukocyte Esterase,Urine Large (Negative); Mucus,Urine Few /hpf; Nitrite,Urine Negative (Negative); Protein,Urine 1+ (Negative); RBC,Urine 2 /hpf (0-5); Specific Gravity,Urine 1.031 (1.001-1.035); Squamous Epithelial Cell,Urine 32 /hpf (0-4); WBC,Urine 50 /hpf (0-5)
[2017-08-27 18:42] VITALS: BP 130/68; PULSE 80; RESP 16; TEMP 98.2
== END 2017-08-27 18:30 | disposition home or self-care (01) ==
LOC: EC 15:56
DX: R10.9 Unspecified abdominal pain (principal); R11.2 Nausea with vomiting, unspecified; J45.909 Unspecified asthma, uncomplicated; E11.9 Type 2 diabetes mellitus without complications; M79.7 Fibromyalgia; F41.9 Anxiety disorder, unspecified; F31.9 Bipolar disorder, unspecified; F20.9 Schizophrenia, unspecified; Z79.4 Long term (current) use of insulin; Z79.899 Other long term (current) drug therapy; Z88.2 Allergy status to sulfonamides; Z88.5 Allergy status to narcotic agent; Z88.8 Allergy status to other drugs, medicaments and biological substances; Z91.013 Allergy to seafood; Z91.018 Allergy to other foods; Z91.048 Other nonmedicinal substance allergy status
CPT/HCPCS: 36415; 80053; 83690; 83735; 85025; 81001; 87086; 74176; 99284; 96374; 96375; J2405; J2270

== ENCOUNTER 2017-12-08 21:58 | Observation (INO) | payer BC, MEDICARE ==
[2017-12-09 00:25] VITALS: BMI 37.8
[2017-12-09] MEDS ORDERED: ALBUTEROL NEBULIZED 2.5 MG/3 ML INHALATION PRN (00:51)
[2017-12-09] MEDS ORDERED: NAPROXEN 250 MG TAB PO PRN (00:51)
[2017-12-09] MEDS ORDERED: ONDANSETRON 4 MG/2 ML VIAL IVP PRN (00:55)
[2017-12-09] MEDS ORDERED: clonazePAM 0.5 MG TAB PO SCH (01:00)
[2017-12-09] MEDS: MORPHINE SULFATE 2 MG/ML SYRINGE IVP PRN ×2 (01:16→05:45)
[2017-12-09] MEDS: ZOLPIDEM 10 MG TAB PO SCH ×2 (01:26→21:02)
[2017-12-09] MEDS: METOPROLOL TARTRATE 25 MG TAB PO SCH ×3 (01:26→21:40)
[2017-12-09] MEDS: CYCLOBENZAPRINE 10 MG TAB PO SCH ×4 (01:27→21:40)
[2017-12-09] MEDS: DIAZEPAM 5 MG TAB PO SCH ×4 (01:27→21:02)
[2017-12-09] MEDS: NORTRIPTYLINE 10 MG CAP PO SCH ×2 (01:42→21:40)
[2017-12-09] MEDS: DIVALPROEX 250 MG TABLET.DR PO SCH ×3 (01:42→21:40)
[2017-12-09 02:32] LABS: Basophils # (A) 0.1 k/uL (0-0.2); Basophils % (A) 1 %; Eosinophils # (A) 0.2 k/uL (0-0.7); Eosinophils % (A) 1 %; HCT 42.7 % (34.0-46.0); HGB 13.7 gm/dL (11.4-16.0); Lymphocytes # (A) 3.6 k/uL (1.0-4.8); Lymphocytes % (A) 35 %; MCH 31.8 pg (25.0-35.0); MCV 99.4 fL (80.0-100.0); Mean Platelet Volume 6.7; Monocytes # (A) 0.5 k/uL (0-1.0); Monocytes % (A) 4 %; Neutrophils # (A) 5.9 k/uL (1.3-7.7); Neutrophils % (A) 57 %; Platelet Count 300 k/uL (150-450); RDW 14.2 % (11.5-15.5); WBC 10.3 k/uL (3.8-10.6)
[2017-12-09 02:42] LABS: Anion Gap 8 mmol/L; Blood Urea Nitrogen 7 mg/dL (7-17); Calcium 8.7 mg/dL (8.4-10.2); Carbon Dioxide 25 mmol/L (22-30); Chloride 106 mmol/L (98-107); Glucose 121 mg/dL (74-99); Potassium 3.8 mmol/L (3.5-5.1); Sodium 139 mmol/L (137-145)
[2017-12-09 02:46] LABS: Creatine Kinase 66 U/L (30-135)
[2017-12-09 02:59] LABS: Creatine Kinase MB 0.2 ng/mL (0.0-2.4); Troponin I <0.012 ng/mL (0.000-0.034)
[2017-12-09] MEDS: HYDROcodone/APAP 5-325MG 1 EACH TAB PO PRN ×4 (04:49→23:40)
[2017-12-09 07:06] LABS: Glucose,Whole Blood 111 mg/dL (75-99)
[2017-12-09 08:34] LABS: Creatine Kinase 62 U/L (30-135)
[2017-12-09 08:47] LABS: Creatine Kinase MB <0.2 ng/mL (0.0-2.4); Troponin I <0.012 ng/mL (0.000-0.034)
[2017-12-09] MEDS: ATORVASTATIN 40 MG TAB PO SCH (09:27)
[2017-12-09] MEDS: ATOMOXETINE HCL 100 MG PO SCH (09:27)
[2017-12-09] MEDS: FENOFIBRATE 160 MG TAB PO SCH (09:27)
--- NOTE | 2017-12-09 09:38 | P.CRDCN ---
History of Present Illness History of present illness: This is Dr. Dobbins dictating a consult on this patient The patient was interviewed and examined by me IMPRESSION / ASSESSMENT: Vasovagal syncope, recurrent episodes Diabetes Dyslipidemia Increased BMI PLAN: The echo Doppler study ambulate in the hallways she has not had an acute myocardial infarction ECG is normal She will go home from a cardiac standpoint and follow up with Dr. King HPI Patient was at work when she experienced nausea sweating dizziness or loss of consciousness when she got out of a sitting position and stood up and walked. She's had several such episodes in the past She of diabetes, dyslipidemia, on atorvastatin 40 mg by mouth daily and take metoprolol 25 mg twice daily as well as fenofibrate ROS: No fever chills or rigors, no cough, phlegm or expectoration, no nausea, vomiting or diarrhea, no hematuria, dysuria, no musculoskeletal complaints, no strokes or seizures, no skin lesions. EXAMINATION afebrile 98.2F pulse rate in the 70s normal respirations blood pressure 120/77 mmHg Heart sounds are normal normal S1 normal S2 no murmurs or gallops no rub Breath sounds are clear no rhonchi no crackles Abdomen is soft nontender Extremities are warm no edema Increased BMI of 37.8 noted REVIEW OF LABS, ECG Hemoglobin 13.7 electrolytes normal cardiac enzymes 2 normal D-dimer at the outside hospital is normal at 0.2 Past Medical History Past Medical History: Asthma, Chest Pain / Angina, Diabetes Mellitus, Fibromyalgia, GERD/Reflux, Hyperlipidemia, Hypertension, Myocardial Infarction ( [place]), Neurologic Disorder, Pneumonia, Seizure Disorder, Sleep Apnea/CPAP/BIPAP Additional Past Medical History / Comment(s): NEUROPATHY, SPINA BIFIDA, GOUT, urinary retention, chronic pain to her back and legs Last Myocardial Infarction Date:: 2009 History of Any Multi-Drug Resistant Organisms: None Reported Past Surgical History: Section, Cholecystectomy, Hysterectomy, Orthopedic Surgery, Tonsillectomy Additional Past Surgical History / Comment(s): Arthroscopic LEFT KNEE, KIDNEY SURGERY AT AGE 7 Past Anesthesia/Blood Transfusion Reactions: Postoperative Nausea & Vomiting ( PONV) Smoking Status: Never smoker - Past Family History Mother Additional Family Medical History / Comment(s): Mother is alive at age 60 with history of RA, Fibromyalgia. Father Family Medical History: Diabetes Mellitus Additional Family Medical History / Comment(s): Father is alive at age 68 with history of diabetes and sleep apnea. Brother(s) Additional Family Medical History / Comment(s): Patient has 2 brothers. One is healthy and the other has mental health issues and chronic back pain. She does not have any sisters. She has one daughter with bipolar and ADHD. Medications and Allergies Home Medications Medication Instructions Recorded Confirmed Type Albuterol Sulfate [Proair Hfa] 1 - 2 puff INHALATION RT-Q6H PRN 04/12/14 History Atomoxetine HCl [Strattera] 100 mg PO QAM 01/31/16 12/09/17 History Divalproex [Depakote] 250 mg PO BID 01/31/16 12/09/17 History Nortriptyline [Pamelor] 10 mg PO HS 01/31/16 12/09/17 History clonazePAM [KlonoPIN] 0.5 mg PO TID 01/31/16 12/09/17 History rOPINIRole HCL [Requip] 2 mg PO HS 01/31/16 12/09/17 History Atorvastatin [Lipitor] 40 mg PO DAILY #30 tab 02/01/16 12/09/17 Rx Fenofibrate [Lofibra] 160 mg PO DAILY #30 tab 02/01/16 12/09/17 Rx Metoprolol Tartrate [Lopressor] 25 mg PO BID #60 tab 02/01/16 12/09/17 Rx Cyclobenzaprine [Flexeril] 10 mg PO TID #12 tab 07/05/17 12/09/17 Rx HYDROcodone/APAP 5-325MG [[place] 1 tab PO Q6HR PRN #20 tab 07/31/17 12/09/17 Rx 5-325] Insulin Detemir [Levemir] 90 unit SQ AC-SUPPER 07/31/17 12/09/17 History Naproxen [Naprosyn] 500 mg PO Q12HR PRN #30 tab 07/31/17 12/09/17 Rx Ondansetron Odt [Zofran Odt] 4 mg PO Q8HR PRN #15 tab 08/27/17 12/09/17 Rx Diazepam [Valium] 5 mg PO TID 12/09/17 12/09/17 History Zolpidem [Ambien] 10 mg PO HS 12/09/17 12/09/17 History Allergies Allergy/AdvReac Type Severity Reaction Status Date / Time shellfish derived Allergy Unknown Anaphylaxis Verified 08/27/17 16:07 celery Allergy Rash/Hives Verified 08/27/17 16:07 codeine Allergy Unknown Verified 08/27/17 16:07 gabapentin Allergy Unknown Verified 08/27/17 16:07 iodine Allergy Anaphylaxis Verified 08/27/17 16:07 latex Allergy Rash/Hives Verified 12/09/17 00:20 onion Allergy Unknown Verified 08/27/17 16:07 Sulfa (Sulfonamide Allergy Unknown Verified 08/27/17 16:07 Antibiotics) tramadol Allergy Unknown Verified 08/27/17 16:07 cilanto Allergy Anaphylaxis Uncoded 08/27/17 16:07 Physical Exam Vitals: Vital Signs Temp Pulse Pulse Resp BP Pulse Ox 12/09/17 07:07 70 12/09/17 04:00 98.2 F 70 18 120/77 97 12/09/17 00:00 98.1 F 89 18 148/87 97 Intake and Output 12/08/17 12/09/17 12/09/17 22:59 06:59 14:59 Other: # Voids 1 Weight 84.8 kg Results 12/09/17 02:16 12/09/17 02:16 Cardiac Enzymes 12/09/17 12/09/17 Range/Units 01:58 07:54 CK-MB (CK-2) 0.2 <0.2 (0.0-2.4) ng/mL Troponin I <0.012 <0.012 (0.000-0.034) ng/mL CBC 12/09/17 Range/Units 02:16 WBC 10.3 (3.8-10.6) k/uL RBC 4.30 (3.80-5.40) m/uL Hgb 13.7 (11.4-16.0) gm/dL Hct 42.7 (34.0-46.0) % Plt Count 300 (150-450) k/uL Comprehensive Metabolic Panel 12/09/17 Range/Units 02:16 Sodium 139 (137-145) mmol/L Potassium 3.8 (3.5-5.1) mmol/L Chloride 106 (98-107) mmol/L Carbon Dioxide 25 (22-30) mmol/L BUN 7 (7-17) mg/dL Creatinine 0.57 (0.52-1.04) mg/dL Glucose 121 H (74-99) mg/dL Calcium 8.7 (8.4-10.2) mg/dL Current Medications Generic Name Dose Route Start Last Admin Trade Name Freq PRN Reason Stop Dose Admin Hydrocodone Bitart/Acetaminophen 1 each 12/09/17 00:51 12/09/17 04:49 [place] 5-325 PO 1 each Q6HR PRN Administration MODERATE Pain Albuterol Sulfate 2.5 mg 12/09/17 00:51 12/09/17 07:06 Ventolin Nebulized INHALATION 2.5 mg RT-Q6H PRN Administration Shortness Of Breath Atorvastatin Calcium 40 mg 12/09/17 09:00 12/09/17 09:27 Lipitor PO 40 mg DAILY GEE Administration Cyclobenzaprine HCl 10 mg 12/09/17 01:00 12/09/17 09:27 Flexeril PO 10 mg TID GEE Administration Diazepam 5 mg 12/09/17 01:00 12/09/17 09:27 Valium PO 5 mg TID [facility] Administration Divalproex Sodium 250 mg 12/09/17 01:00 12/09/17 09:27 Depakote PO 250 mg BID [facility] Administration Fenofibrate 160 mg 12/09/17 09:00 12/09/17 09:27 Lofibra PO 160 mg DAILY [facility] Administration Insulin Detemir 90 unit 12/09/17 17:30 Levemir SQ AC-SUPPER [facility] Metoprolol Tartrate 25 mg 12/09/17 01:00 12/09/17 09:27 Lopressor PO 25 mg BID GEE Administration Morphine Sulfate 2 mg 12/09/17 00:54 12/09/17 05:45 Morphine Sulfate (Inj) IVP 2 mg Q4H PRN Administration SEVERE Pain/Discomfort Naproxen 500 mg 12/09/17 00:51 Naprosyn PO Q12HR PRN MILD Pain Non-Formulary Medication 100 mg 12/09/17 09:00 12/09/17 09:27 Atomoxetine Hcl [Strattera] PO Not Given QAM GEE Nortriptyline HCl 10 mg 12/09/17 01:00 12/09/17 01:42 Pamelor PO 10 mg HS GEE Administration Ondansetron HCl 4 mg 12/09/17 00:55 Zofran IVP Q6HR PRN Nausea And Vomiting Ropinirole HCl 2 mg 12/09/17 01:00 12/09/17 01:26 Requip PO 2 mg HS GEE Administration Zolpidem Tartrate 10 mg 12/09/17 01:00 12/09/17 01:26 Ambien PO 10 mg HS GEE Administration Intake and Output 12/08/17 12/09/17 12/09/17 22:59 06:59 14:59 Other: # Voids 1 Weight 84.8 kg 12/09/17 02:16 12/09/17 02:16
[2017-12-09 12:02] LABS: Glucose,Whole Blood 145 mg/dL (75-99)
--- NOTE | 2017-12-09 12:24 | P.HPIM ---
History of Present Illness H&P Date: 12/09/17 Chief Complaint: Near syncope 42-year-old morbidly obese female with history of sleep disorder breathing and sleep apnea fibromyalgia depression and the morbid obesity also has a history of diabetes mellitus patient has chronic recurrent syncopal episode also has chronic aches and pain throughout the chest and the headache as well patient was brought into emergency department seen evaluated examined and subsequently admitted into the hospital patient is complaining of severe headache upper torso pain denies any shortness of breath patient has been eval by cardiovascular services for vasovagal syncopal episode, patient has not seen a neurologist in the past, Review of Systems All systems: negative Past Medical History Past Medical History: Asthma, Chest Pain / Angina, Diabetes Mellitus, Fibromyalgia, GERD/Reflux, Hyperlipidemia, Hypertension, Myocardial Infarction ( [place]), Neurologic Disorder, Pneumonia, Seizure Disorder, Sleep Apnea/CPAP/BIPAP Additional Past Medical History / Comment(s): NEUROPATHY, SPINA BIFIDA, GOUT, urinary retention, chronic pain to her back and legs Last Myocardial Infarction Date:: 2009 History of Any Multi-Drug Resistant Organisms: None Reported Past Surgical History: Section, Cholecystectomy, Hysterectomy, Orthopedic Surgery, Tonsillectomy Additional Past Surgical History / Comment(s): Arthroscopic LEFT KNEE, KIDNEY SURGERY AT AGE 7 Past Anesthesia/Blood Transfusion Reactions: Postoperative Nausea & Vomiting ( PONV) Smoking Status: Never smoker - Past Family History Mother Additional Family Medical History / Comment(s): Mother is alive at age 60 with history of RA, Fibromyalgia. Father Family Medical History: Diabetes Mellitus Additional Family Medical History / Comment(s): Father is alive at age 68 with history of diabetes and sleep apnea. Brother(s) Additional Family Medical History / Comment(s): Patient has 2 brothers. One is healthy and the other has mental health issues and chronic back pain. She does not have any sisters. She has one daughter with bipolar and ADHD. Medications and Allergies Home Medications Medication Instructions Recorded Confirmed Type Albuterol Sulfate [Proair Hfa] 1 - 2 puff INHALATION RT-Q6H PRN 04/12/14 History Nortriptyline [Pamelor] 10 mg PO HS 01/31/16 12/09/17 History rOPINIRole HCL [Requip] 2 mg PO HS 01/31/16 12/09/17 History Atorvastatin [Lipitor] 40 mg PO DAILY #30 tab 02/01/16 12/09/17 Rx Fenofibrate [Lofibra] 160 mg PO DAILY #30 tab 02/01/16 12/09/17 Rx Metoprolol Tartrate [Lopressor] 25 mg PO BID #60 tab 02/01/16 12/09/17 Rx HYDROcodone/APAP 5-325MG [[place] 1 tab PO Q6HR PRN #20 tab 07/31/17 12/09/17 Rx 5-325] Insulin Detemir [Levemir] 90 unit SQ AC-SUPPER 07/31/17 12/09/17 History Diazepam [Valium] 5 mg PO TID 12/09/17 12/09/17 History Zolpidem [Ambien] 10 mg PO HS 12/09/17 12/09/17 History Allergies Allergy/AdvReac Type Severity Reaction Status Date / Time shellfish derived Allergy Unknown Anaphylaxis Verified 08/27/17 16:07 celery Allergy Rash/Hives Verified 08/27/17 16:07 codeine Allergy Unknown Verified 08/27/17 16:07 gabapentin Allergy Unknown Verified 08/27/17 16:07 iodine Allergy Anaphylaxis Verified 08/27/17 16:07 latex Allergy Rash/Hives Verified 12/09/17 00:20 onion Allergy Unknown Verified 08/27/17 16:07 Sulfa (Sulfonamide Allergy Unknown Verified 08/27/17 16:07 Antibiotics) tramadol Allergy Unknown Verified 08/27/17 16:07 cilanto Allergy Anaphylaxis Uncoded 08/27/17 16:07 Physical Exam Vitals: Vital Signs Temp Pulse Pulse Resp BP Pulse Ox 12/09/17 08:00 98.0 F 90 18 102/69 98 12/09/17 07:07 70 12/09/17 04:00 98.2 F 70 18 120/77 97 12/09/17 00:00 98.1 F 89 18 148/87 97 Intake and Output 12/08/17 12/09/17 12/09/17 22:59 06:59 14:59 Other: # Voids 1 Weight 84.8 kg - Constitutional General appearance: disheveled, morbidly obese - EENT Eyes: PERRLA, normal appearance ENT: hearing grossly normal, normal oropharynx Ears: bilateral: normal - Neck Neck: normal ROM Carotids: bilateral: upstroke normal, bruit absent Thyroid: bilateral: normal size - Respiratory Respiratory: bilateral: CTA - Cardiovascular Heart sounds: normal: S1, S2 - Gastrointestinal General gastrointestinal: distended, soft - Neurologic Neurologic: CNII-XII intact - Musculoskeletal Musculoskeletal: gait normal, generalized weakness, strength equal bilaterally - Psychiatric Psychiatric: A&O x's 3, appropriate affect, intact judgment & insight Results CBC & Chem 7: 12/09/17 02:16 12/09/17 02:16 Labs: Abnormal Lab Results - Last 24 Hours (Table) 12/09/17 12/09/17 12/09/17 Range/Units 02:16 07:01 11:58 Glucose 121 H (74-99) mg/dL POC Glucose (mg/dL) 111 H 145 H (75-99) mg/dL Thrombosis Risk Factor Assmnt - Choose All That Apply Each Factor Represents 1 point: Age 41-60 years Thrombosis Risk Factor Assessment Total Risk Factor Score: 1 Thrombosis Risk Factor Assessment Level: Low Risk Assessment and Plan Assessment: Recurrent syncopal episode Severe morbid obesity Obstructive sleep apnea Severe fibromyalgia Chronic headaches Plan: Neurology consultation Taper down the pain medications tolerated Appreciate cardiovascular evaluation We'll follow clinical course closely further recommendations pending Time with Patient: Greater than 30
--- NOTE | 2017-12-09 14:32 | ECHOF ---
Referral Reason:chest pain MEASUREMENTS -------- HEIGHT: 132.1 cm WEIGHT: 84.4 kg BP: 120/77 IVSd: 1.6 cm (0.6 - 1.1) LVIDd: 3.2 cm (3.9 - 5.3) LVPWd: 1.1 cm (0.6 - 1.1) IVSs: 1.9 cm LVIDs: 1.5 cm LVPWs: 1.8 cm Ao Diam: 2.6 cm (2.0 - 3.7) AV Cusp: 1.9 cm (1.5 - 2.6) LA Diam: 3.3 cm (2.7 - 3.8) MV EXCURSION: 14.382 mm (> 18.000) MV EF SLOPE: 94 mm/s (70 - 150) EPSS: 0.2 cm MV E Brent: 0.96 m/s MV DecT: 164 ms MV A Brent: 0.65 m/s MV E/A Ratio: 1.48 RAP: 5.00 mmHg RVSP: 16.89 mmHg FINDINGS -------- Sinus rhythm. This was a technically good study. The left ventricular size is normal. There is mild concentric left ventricular hypertrophy. Overa ll left ventricular systolic function is normal with, an EF between 55 - 60 %. The right ventricle is normal in size and function. The left atrium is normal in size. The right atrium is normal in size. The aortic valve is trileaflet, and appears structurally normal. No aortic stenosis or regurgitation. The mitral valve leaflets are mildly thickened. Mild mitral regurgitation is present. Mild tricuspid regurgitation present. The right ventricular systolic pressure, as measured by Doppl er, is 16.89mmHg. Pulmonic valve appears structurally normal. The aortic root, ascending aorta and aortic arch are normal. Normal inferior vena cava with normal inspiratory collapse consistent with estimated right atrial pre ssure of 5 mmHg. The pericardium is normal. CONCLUSIONS -------- 1. Sinus rhythm. 2. This was a technically good study. 3. The left ventricular size is normal. 4. There is mild concentric left ventricular hypertrophy. 5. Overall left ventricular systolic function is normal with, an EF between 55 - 60 %. 6. The right ventricle is normal in size and function. 7. The left atrium is normal in size. 8. The right atrium is normal in size. 9. The aortic valve is trileaflet, and appears structurally normal. No aortic stenosis or regurgitati on. 10. The mitral valve leaflets are mildly thickened. 11. Mild mitral regurgitation is present. 12. Mild tricuspid regurgitation present. 13. The right ventricular systolic pressure, as measured by Doppler, is 16.89mmHg. 14. Pulmonic valve appears structurally normal. 15. The aortic root, ascending aorta and aortic arch are normal. 16. Normal inferior vena cava with normal inspiratory collapse consistent with estimated right atrial pressure of 5 mmHg. 17. The pericardium is normal. F[employer]GRAPHIC PRESS PLATE SETTER: Kristie Ivy RDCS
[2017-12-09 17:12] LABS: Glucose,Whole Blood 110 mg/dL (75-99)
[2017-12-09] MEDS: INSULIN DETEMIR 100 UNIT/ML 10 ML VIAL SQ SCH (17:22)
[2017-12-09 20:57] LABS: Glucose,Whole Blood 156 mg/dL (75-99)
--- NOTE | 2017-12-09 23:13 | P.CNNES ---
History of Present Illness Consult date: 12/09/17 Reason for Consult: Patient admitted for recurrent syncope and dizziness. History of Present Illness: This patient is a 42-year-old right-handed white female who was brought to [facility] yesterday for evaluation of recurrent syncopal episodes and chronic headaches. Patient states that she had seen her primary care physician Dr. Xiao about 2 weeks ago. She is being treated for diabetes as well as fibromyalgia. She has not been on any specific treatment for fibromyalgia however for the last several months. She also has underlying anxiety disorder for which she follows with a psychiatrist. The patient was brought in to the hospital yesterday for further evaluation. She was seen in the emergency room and subsequent admitted to Hospital. She does follow in the outpatient medical clinic with Dr. Guillermo Xiao. The patient states that she does suffer from sleep apnea and does use a CPAP machine at night. More recently about a few weeks ago she had an acute syncopal episode at work. She was sent to the hospital from her work where she was further evaluated at [facility] where she underwent a routine computed tomography scan of the brain which was reported normal. She was then transferred to [facility] for further ongoing medical evaluation. The patient states that her headaches are mostly on her left side. They did do generate significant pain to the point that she becomes lightheaded and dizzy. The patient was seen by cardiology today and was diagnosed with vasovagal syncope. She is to undergo an echocardiogram as well as review of her EKG. The patient states overall her headaches have shown very little improvement since admission to hospital. On palpation she does have significant occipital tenderness on palpation bilaterally with left greater than right side. The patient otherwise states she has been feeling good. We have reviewed our findings with her in detail. She comes today for neurology follow-up visit and further recommendations. Review of Systems Constitutional: Denies chills, Denies fever Eyes: denies blurred vision, denies pain Ears, nose, mouth and throat: Denies headache, Denies sore throat Cardiovascular: Denies chest pain, Denies shortness of breath Respiratory: Denies cough Gastrointestinal: Denies abdominal pain, Denies diarrhea, Denies nausea, Denies vomiting Genitourinary: Denies dysuria, Denies hematuria Musculoskeletal: Denies myalgias Integumentary: Denies pruritus, Denies rash Neurological: Reports change in mentation, Reports confusion, Reports headaches , Reports memory loss, Reports tingling, Denies numbness, Denies weakness Psychiatric: Denies anxiety, Denies depression Endocrine: Denies fatigue, Denies weight change Past Medical History Past Medical History: Asthma, Chest Pain / Angina, Diabetes Mellitus, Fibromyalgia, GERD/Reflux, Hyperlipidemia, Hypertension, Myocardial Infarction ( CT), Neurologic Disorder, Pneumonia, Seizure Disorder, Sleep Apnea/CPAP/BIPAP Additional Past Medical History / Comment(s): NEUROPATHY, SPINA BIFIDA, GOUT, urinary retention, chronic pain to her back and legs Last Myocardial Infarction Date:: 2009 History of Any Multi-Drug Resistant Organisms: None Reported Past Surgical History: Section, Cholecystectomy, Hysterectomy, Orthopedic Surgery, Tonsillectomy Additional Past Surgical History / Comment(s): Arthroscopic LEFT KNEE, KIDNEY SURGERY AT AGE 7 Past Anesthesia/Blood Transfusion Reactions: Postoperative Nausea & Vomiting ( PONV) Smoking Status: Never smoker - Past Family History Mother Additional Family Medical History / Comment(s): Mother is alive at age 60 with history of RA, Fibromyalgia. Father Family Medical History: Diabetes Mellitus Additional Family Medical History / Comment(s): Father is alive at age 68 with history of diabetes and sleep apnea. Brother(s) Additional Family Medical History / Comment(s): Patient has 2 brothers. One is healthy and the other has mental health issues and chronic back pain. She does not have any sisters. She has one daughter with bipolar and ADHD. Medications and Allergies Home Medications Medication Instructions Recorded Confirmed Type Albuterol Sulfate [Proair Hfa] 1 - 2 puff INHALATION RT-Q6H PRN 04/12/14 History Nortriptyline [Pamelor] 10 mg PO HS 01/31/16 12/09/17 History rOPINIRole HCL [Requip] 2 mg PO HS 01/31/16 12/09/17 History Atorvastatin [Lipitor] 40 mg PO DAILY #30 tab 02/01/16 12/09/17 Rx Fenofibrate [Lofibra] 160 mg PO DAILY #30 tab 02/01/16 12/09/17 Rx Metoprolol Tartrate [Lopressor] 25 mg PO BID #60 tab 02/01/16 12/09/17 Rx HYDROcodone/APAP 5-325MG [Whittaker 1 tab PO Q6HR PRN #20 tab 07/31/17 12/09/17 Rx 5-325] Insulin Detemir [Levemir] 90 unit SQ AC-SUPPER 07/31/17 12/09/17 History Diazepam [Valium] 5 mg PO TID 12/09/17 12/09/17 History Zolpidem [Ambien] 10 mg PO HS 12/09/17 12/09/17 History Allergies Allergy/AdvReac Type Severity Reaction Status Date / Time shellfish derived Allergy Unknown Anaphylaxis Verified 08/27/17 16:07 celery Allergy Rash/Hives Verified 08/27/17 16:07 codeine Allergy Unknown Verified 08/27/17 16:07 gabapentin Allergy Unknown Verified 08/27/17 16:07 iodine Allergy Anaphylaxis Verified 08/27/17 16:07 latex Allergy Rash/Hives Verified 12/09/17 00:20 onion Allergy Unknown Verified 08/27/17 16:07 Sulfa (Sulfonamide Allergy Unknown Verified 08/27/17 16:07 Antibiotics) tramadol Allergy Unknown Verified 08/27/17 16:07 cilanto Allergy Anaphylaxis Uncoded 08/27/17 16:07 Physical Examination - Vital Signs Vital Signs: Vital Signs Temp Pulse Pulse Resp BP Pulse Ox 12/09/17 16:52 97.9 F 77 16 127/84 98 12/09/17 16:00 97.9 F 72 16 101/67 98 12/09/17 12:00 98.2 F 88 18 106/71 97 12/09/17 08:00 98.0 F 90 18 102/69 98 12/09/17 07:07 70 12/09/17 04:00 98.2 F 70 18 120/77 97 12/09/17 00:00 98.1 F 89 18 148/87 97 Intake and Output 12/09/17 12/09/17 12/09/17 06:59 14:59 22:59 Other: # Voids 1 Weight 84.8 kg - Constitutional General appearance: average body habitus, cooperative - EENT EENT: PERRL, mucous membranes moist - Respiratory Respiratory: lungs clear, normal breath sounds - Cardiovascular Cardiovascular: regular rate, normal S1, normal S2 Extremities: no peripheral edema bilaterally - Gastrointestinal Gastrointestinal: normoactive bowel sounds - Integumentary Integumentary: normal - Neurologic Cranial nerve examination: PERRL, EOMI, VFF, V1/V2/V3 grossly intact, face symmetric, intact gag reflex, intact corneal reflex, normal palatal elevation Speech examination: intact Sensorimotor examination: intact Motor examination - right side: 4/5: biceps, triceps, wrist flexion, wrist extension, land lease information clerk, hip flexors, knee extensors, dorsiflexion, toe extension (EHL) , plantarflexion Motor examination - left side: 4/5: biceps, triceps, wrist flexion, wrist extension, land lease information clerk, hip flexors, knee extensors, dorsiflexion, toe extension (EHL) , plantarflexion Detailed sensory examination: intact Reflex and gait examination: intact Reflexes: 1+: ankle, bicep, knee, tricep - Musculoskeletal Musculoskeletal: no pain - Psychiatric Psychiatric: mood/affect appropriate, cooperative Results - Laboratory Findings CBC and BMP: 12/09/17 02:16 12/09/17 02:16 Abnormal Lab Findings: Abnormal Labs 12/09/17 12/09/17 12/09/17 02:16 07:01 11:58 Glucose 121 H POC Glucose (mg/dL) 111 H 145 H 12/09/17 16:54 Glucose POC Glucose (mg/dL) 110 H Assessment and Plan (1) Vasovagal syncope Current Visit: Yes Status: Acute Code(s): R55 - SYNCOPE AND COLLAPSE SNOMED Code(s): 209365047 (2) Occipital neuritis Current Visit: Yes Status: Acute Code(s): M54.81 - OCCIPITAL NEURALGIA SNOMED Code(s): 08457594 (3) Obstructive sleep apnea Current Visit: Yes Status: Acute Code(s): G47.33 - OBSTRUCTIVE SLEEP APNEA ( ADULT) (PEDIATRIC) SNOMED Code(s): 26927242 (4) Acute urinary retention Current Visit: No Status: Chronic Priority: High Code(s): R33.8 - OTHER RETENTION OF URINE SNOMED Code(s): 619309340 (5) Depression Current Visit: No Status: Chronic Code(s): F32.9 - MAJOR DEPRESSIVE DISORDER , SINGLE EPISODE, UNSPECIFIED SNOMED Code(s): 63127563 Plan: This patient is a 42-year-old female who was admitted to hospital for evaluation of recurrent episodes of near syncope. He had episode at work recently and was sent to [facility] for evaluation. She was seen in the ER and underwent a computed tomography scan of the brain which patient was told was entirely normal. She initially was seen in [place] but then transferred to the [facility] for further treatment. On her neurological examination the patient has evidence of bilateral occipital neuritis. This is a likely main contributor to her headache symptoms in that region. We have recommended she undergo a bilateral occipital nerve block procedure for treatment. We recommend to monitor for any other side effects with the patient. We have explained our findings today with the patient detail. She does have more significant occipital inflammation of the left suboccipital notch as compared to the right. Patient should be seen by psychiatry for treatment of mild depression. We will continue close neurological follow-up for the patient during this admission. Her overall prognosis remains guarded. Time with Patient: Greater than 30
[2017-12-10] MEDS: HYDROcodone/APAP 5-325MG 1 EACH TAB PO PRN ×3 (06:39→20:36)
[2017-12-10 07:19] LABS: Glucose,Whole Blood 118 mg/dL (75-99)
--- NOTE | 2017-12-10 09:19 | P.PN ---
Subjective Progress Note Date: 12/10/17 Principal diagnosis: Occipital headache, intractable occipital pain and shoulder and neck pain, recurrent intermittent episode of dizziness lightheadedness, near-syncope related to cardioinhibitory and vasodepressor phenomena, severity morbid obesity likely obstructive sleep apnea 12/10/2017, patient seen and evaluated examined during the rounds still have significant pain dizziness lightheadedness on activity and exertion, patient has been evaluated by neurology recommended occipital nerve block anesthesia has been consulted 42-year-old morbidly obese female with history of sleep disorder breathing and sleep apnea fibromyalgia depression and the morbid obesity also has a history of diabetes mellitus patient has chronic recurrent syncopal episode also has chronic aches and pain throughout the chest and the headache as well patient was brought into emergency department seen evaluated examined and subsequently admitted into the hospital patient is complaining of severe headache upper torso pain denies any shortness of breath patient has been eval by cardiovascular services for vasovagal syncopal episode, patient has not seen a neurologist in the past, Objective - Vital Signs Vital signs: Vital Signs Temp 98.2 F 12/10/17 07:00 Pulse 82 12/10/17 07:00 Resp 16 12/10/17 07:00 BP 118/69 12/10/17 07:00 Pulse Ox 97 12/10/17 07:00 Intake & Output 12/09/17 12/10/17 12/10/17 18:59 06:59 18:59 Intake Total 600 300 200 Balance 600 300 200 Intake: Oral 600 300 200 Other: # Voids 1 1 - Exam - Constitutional General appearance: disheveled, morbidly obese - EENT Eyes: PERRLA, normal appearance ENT: hearing grossly normal, normal oropharynx Ears: bilateral: normal - Neck Neck: normal ROM Carotids: bilateral: upstroke normal, bruit absent Thyroid: bilateral: normal size - Respiratory Respiratory: bilateral: CTA - Cardiovascular Heart sounds: normal: S1, S2 - Gastrointestinal General gastrointestinal: distended, soft - Neurologic Neurologic: CNII-XII intact - Musculoskeletal Musculoskeletal: gait normal, generalized weakness, strength equal bilaterally - Psychiatric Psychiatric: A&O x's 3, appropriate affect, intact judgment & insight - Labs CBC & Chem 7: 12/09/17 02:16 12/09/17 02:16 Labs: Abnormal Lab Results - Last 24 Hours (Table) 12/09/17 12/09/1712/09/18 Range/Units 11:58 16:54 20:44 POC Glucose (mg/dL) 145 H 110 H 156 H (75-99) mg/dL 12/10/17 Range/Units 07:14 POC Glucose (mg/dL) 118 H (75-99) mg/dL Assessment and Plan Assessment: Severe occipital headache Recurrent syncopal episode Likely vasovagal syncope Severe morbid obesity Obstructive sleep apnea Severe fibromyalgia Chronic headaches Plan: Neurology consultation recommendations reviewed Taper down the pain medications tolerated, observe off of morphine Appreciate cardiovascular and neurology evaluation Anesthesia has been consulted for the nerve block We'll follow clinical course closely further recommendations pending Patient is not ready for discharge due to ongoing severe symptoms Time with Patient: Greater than 30
[2017-12-10] MEDS: ATOMOXETINE HCL 100 MG PO SCH (09:39)
[2017-12-10] MEDS: DIAZEPAM 5 MG TAB PO SCH ×3 (09:40→20:37)
[2017-12-10] MEDS: DIVALPROEX 250 MG TABLET.DR PO SCH ×2 (10:05→20:37)
[2017-12-10] MEDS: ATORVASTATIN 40 MG TAB PO SCH (10:05)
[2017-12-10] MEDS: METOPROLOL TARTRATE 25 MG TAB PO SCH ×2 (10:05→20:36)
[2017-12-10] MEDS: FENOFIBRATE 160 MG TAB PO SCH (10:05)
[2017-12-10] MEDS: CYCLOBENZAPRINE 10 MG TAB PO SCH ×3 (10:05→20:37)
[2017-12-10 12:02] LABS: Glucose,Whole Blood 119 mg/dL (75-99)
[2017-12-10 17:18] LABS: Glucose,Whole Blood 141 mg/dL (75-99)
[2017-12-10] MEDS: INSULIN DETEMIR 100 UNIT/ML 10 ML VIAL SQ SCH (17:26)
[2017-12-10] MEDS: ZOLPIDEM 10 MG TAB PO SCH (20:36)
[2017-12-10] MEDS: NORTRIPTYLINE 10 MG CAP PO SCH (20:37)
[2017-12-10 20:54] LABS: Glucose,Whole Blood 109 mg/dL (75-99)
[2017-12-11] MEDS: HYDROcodone/APAP 5-325MG 1 EACH TAB PO PRN ×4 (02:29→20:37)
[2017-12-11 07:39] LABS: Glucose,Whole Blood 134 mg/dL (75-99)
[2017-12-11] MEDS: ATORVASTATIN 40 MG TAB PO SCH (08:31)
[2017-12-11] MEDS: DIAZEPAM 5 MG TAB PO SCH ×3 (08:31→20:37)
[2017-12-11] MEDS: FENOFIBRATE 160 MG TAB PO SCH (08:32)
[2017-12-11] MEDS: CYCLOBENZAPRINE 10 MG TAB PO SCH ×3 (08:32→20:37)
[2017-12-11] MEDS: DIVALPROEX 250 MG TABLET.DR PO SCH ×2 (08:32→20:37)
[2017-12-11] MEDS: ATOMOXETINE HCL 100 MG PO SCH (08:33)
[2017-12-11] MEDS: METOPROLOL TARTRATE 25 MG TAB PO SCH ×2 (08:33→20:37)
[2017-12-11] MEDS ORDERED: TRIAMCINOLONE ACETONIDE 40 MG/ML 1 ML VIAL ONE (10:07)
[2017-12-11] MEDS ORDERED: SODIUM CHLORIDE 0.9% 1,000 ML IV ONE ×2 (10:18)
--- NOTE | 2017-12-11 11:27 | P.PCN ---
Date of Procedure: 12/11/17 Preoperative Diagnosis: Occipital headache/occipital neuralgia Postoperative Diagnosis: Same as above Procedure(s) Performed: Bilateral occipital nerve block Anesthesia: local Surgeon: Monisha Gabriel Pathology: none sent Condition: stable Disposition: floor Description of Procedure: Procedure: 1- Bilateral (Right /Left ) occipital nerve block EBL: Minimal PROCEDURE INDICATION: The patient with neck pain and headache secondary to occipital neuralgea unresponsive to conservative treatments. PROCEDURE DESCRIPTION / TECHNIQUE: The patient was seen and identified in the preoperative area. Risks, benefits, complications, and alternatives were discussed with the patient, the patient agreed to proceed with the procedure and signed the consent. IV was started. Vital signs remained stable throughout the procedure. Patient was taken to the OR and time out was completed. The patient was placed in the prone position on the procedure table. A pillow was placed under the patients chest to increase the cervical interlaminar space. The cervical area and right occiptial area were prepped with chloraprep. Critical pause was taken. Vital signs were closely monitored during the procedure. Conscious sedation was used during the procedure to decrease patients anxiety. The the occipital exuberance and superior nuchal line were identified on the right side of the occiput. The greater occipital nerve location was estimated to be medial to the occipital artery and one third of the distance between the occipital exuberance and the right mastoid and the lesser occipital nerve was about two thirds of the distance between the occipital exuberance and the right mastoid on the superior nuchal line. I used 25-gauge 1-1/2 inch needle to go through the skin at these 2 points and infiltrate 2.5 MLS of a solution made up of 6 MLS Marcaine 0.5% +20 mg of Kenalog. The solution was infiltrated down to the periosteum.The same procedure was repeated on the left side. Patient tolerated procedure well.
[2017-12-11 11:45] LABS: Glucose,Whole Blood 151 mg/dL (75-99)
[2017-12-11] MEDS: INSULIN DETEMIR 100 UNIT/ML 10 ML VIAL SQ SCH (17:00)
[2017-12-11 17:01] LABS: Glucose,Whole Blood 124 mg/dL (75-99)
--- NOTE | 2017-12-11 19:36 | PN ---
PROGRESS NOTE DATE OF SERVICE: December 11, 2017 Ms. Senait Ram is a 42-year-old female seen, evaluated and examined in the hospital on the 4th floor. This patient has been admitted to the hospital with shoulder pain, aches, occipital headache, and the patient has been evaluated by the Neurology service. She underwent occipital block earlier today. Pain severity has improved but is still feeling some dizziness, lightheadedness. Being followed by neurology service. Her last set of vitals include a blood pressure is 114/70, respiratory rate 16, pulse 96, temp is 98, saturation 97% on room air. HEENT atraumatic, normocephalic. Pharynx is clear. Narrow pharyngeal opening is present. Neck is supple without lymphadenopathy, jugular venous distention, or carotid bruit. Lungs bilateral good air entry is present without significant rales, rhonchi or rub. Heart regular rate and rhythm S1, S2 audible. Abdomen is soft. No rebound, rigidity. Extremities +1 peripheral pulses. Neurological examination otherwise awake and alert. IMPRESSION: 1. Severe occipital headache. 2. Dizziness, lightheadedness. 3. Vasovagal episodes and near-syncope related to that. 4. Severe morbid obesity. 5. Obstructive sleep apnea. 6. Fibromyalgia. PLAN AND RECOMMENDATIONS: As above. Continue supportive care. Taper down the pain medication. Increase activity as tolerated. Hopefully will be ready for discharge possibly in the next 24 hours. MMODL / ELIESERN: [id number] /
[2017-12-11 20:00] LABS: Hemoglobin A1C 5.9 % (4.0-6.0)
[2017-12-11] MEDS: BISACODYL 5 MG TABLET.DR PO SCH (20:37)
[2017-12-11] MEDS: ZOLPIDEM 10 MG TAB PO SCH (20:37)
[2017-12-11] MEDS: NORTRIPTYLINE 10 MG CAP PO SCH (20:37)
[2017-12-12 07:20] LABS: Glucose,Whole Blood 138 mg/dL (75-99)
[2017-12-12] MEDS: HYDROcodone/APAP 5-325MG 1 EACH TAB PO PRN ×3 (07:59→21:14)
[2017-12-12] MEDS: DIAZEPAM 5 MG TAB PO SCH ×3 (08:00→21:14)
[2017-12-12] MEDS: DIVALPROEX 250 MG TABLET.DR PO SCH ×2 (08:00→20:03)
[2017-12-12] MEDS: ATOMOXETINE HCL 100 MG PO SCH (08:00)
[2017-12-12] MEDS: CYCLOBENZAPRINE 10 MG TAB PO SCH ×3 (08:00→21:15)
[2017-12-12] MEDS: ATORVASTATIN 40 MG TAB PO SCH (08:00)
[2017-12-12] MEDS: METOPROLOL TARTRATE 25 MG TAB PO SCH ×2 (08:01→20:03)
[2017-12-12] MEDS: FENOFIBRATE 160 MG TAB PO SCH (08:01)
[2017-12-12 11:38] LABS: Glucose,Whole Blood 123 mg/dL (75-99)
--- NOTE | 2017-12-12 17:16 | MR ---
EXAMINATION TYPE: MR cervical spine wo con DATE OF EXAM: 12/12/2017 COMPARISON: None HISTORY: TECHNIQUE: Multiplanar, multisequence images of the cervical spine were acquired. The cervical vertebra have normal spacing and alignment. Posterior elements are intact. There is no c ompression fracture. Cervical spinal cord has normal signal pattern. There is no evidence of edema. B rainstem is intact. There is no evidence of spinal stenosis. There is no cervical paraspinal mass. Ex am is limited slightly by motion. IMPRESSION: Normal MR scan of the cervical spine. No disc herniation or spinal stenosis.
[2017-12-12] MEDS: INSULIN DETEMIR 100 UNIT/ML 10 ML VIAL SQ SCH (17:44)
[2017-12-12 17:52] LABS: Glucose,Whole Blood 127 mg/dL (75-99)
--- NOTE | 2017-12-12 17:58 | MR ---
EXAMINATION TYPE: MR brain wo/w [facility] wo/wcon DATE OF EXAM: 12/12/2017 COMPARISON: CT brain 07/05/2017, MR brain 04/27/2016 HISTORY: Recurring headaches TECHNIQUE: Multiplanar, multisequence images of the brain and brainstem is performed without and with IV contras t, utilizing 9 mL intravenous Gadavist . Ejrr-yf-[id number] and postcontrast images obtained through the neck, three-dimensional reconstructions performed on an alternate workstation FINDINGS: Fast brain protocol was utilized. Brain MRI: Diffusion weighted images demonstrate no evidence of a recent infarct or other diffusion a bnormality. There is no extra-axial fluid collection or significant interval change white matter sig nal abnormality. The ventricular system and cisternal spaces are normal in size and appearance. The brain volume is age appropriate. Midline structures demonstrate normal morphology. The craniocervical junction appears within normal limits. Post contrast images demonstrate no abnormal enhancement. The dural venous sinuses appear pa tent. The visualized sinuses are clear and the globes are intact. IMPRESSION: No significant interval change. No acute abnormality. MRA NECK: The transverse aorta shows 3 super aortic branch vessels. The innominate, left and right co mmon carotid, internal and external carotid, subclavian arteries are patent. Vertebrobasilar system i s patent. No evident dissection or embolus. IMPRESSION: Internal carotid arteries are patent, there is no evident stenosis
[2017-12-12] MEDS: NORTRIPTYLINE 10 MG CAP PO SCH (20:03)
[2017-12-12] MEDS: BISACODYL 5 MG TABLET.DR PO SCH (20:05)
[2017-12-12 20:50] LABS: Glucose,Whole Blood 181 mg/dL (75-99)
[2017-12-12] MEDS: ZOLPIDEM 10 MG TAB PO SCH (21:14)
--- NOTE | 2017-12-12 23:58 | PN ---
PROGRESS NOTE SUBJECTIVE: A 42-year-old white female with migraines, status post several cervical epidurals, headache persists. CARDIOVASCULAR: S1, S2. LUNGS: Clear. GI: Soft. Await neurology clearance for her to be discharged home. MRI of the neck and brain are all normal. ASSESSMENT: 1. Acute migraine. 2. Cervical neuritis. Possible PT, OT and home care. Possible discharge home soon. MMODL / IJN: [id number] /
[2017-12-13 07:14] LABS: Glucose,Whole Blood 158 mg/dL (75-99)
[2017-12-13] MEDS: DIAZEPAM 5 MG TAB PO SCH ×3 (08:02→21:16)
[2017-12-13] MEDS: DIVALPROEX 250 MG TABLET.DR PO SCH ×2 (08:02→21:06)
[2017-12-13] MEDS: CYCLOBENZAPRINE 10 MG TAB PO SCH ×3 (08:02→21:07)
[2017-12-13] MEDS: FENOFIBRATE 160 MG TAB PO SCH (08:02)
[2017-12-13] MEDS: ATORVASTATIN 40 MG TAB PO SCH (08:02)
[2017-12-13] MEDS: METOPROLOL TARTRATE 25 MG TAB PO SCH ×2 (08:03→21:06)
[2017-12-13] MEDS: ATOMOXETINE HCL 100 MG PO SCH (08:03)
[2017-12-13] MEDS: HYDROcodone/APAP 5-325MG 1 EACH TAB PO PRN ×3 (11:19→23:35)
[2017-12-13 11:35] LABS: Glucose,Whole Blood 144 mg/dL (75-99)
[2017-12-13 17:09] LABS: Glucose,Whole Blood 147 mg/dL (75-99)
[2017-12-13] MEDS: INSULIN DETEMIR 100 UNIT/ML 10 ML VIAL SQ SCH (17:15)
[2017-12-13] MEDS: NORTRIPTYLINE 10 MG CAP PO SCH (21:06)
[2017-12-13] MEDS: BISACODYL 5 MG TABLET.DR PO SCH (21:06)
[2017-12-13] MEDS: ZOLPIDEM 10 MG TAB PO SCH (21:13)
[2017-12-13 21:16] LABS: Glucose,Whole Blood 147 mg/dL (75-99)
--- NOTE | 2017-12-13 23:41 | PN ---
PROGRESS NOTE SUBJECTIVE: A 42-year-old white female with migraine headaches, occipital neuritis, status post injections. CARDIOVASCULAR: S1, S2. Lungs are clear. GI: Soft. HEMATOLOGY: Negative Homans'. ASSESSMENT: 1. Occipital neuritis. 2. Migraine headaches. 3. Muscle spasm, cervical. 4. Insulin-dependent diabetes mellitus. 5. Attention deficit disorder. 6. Restless legs syndrome. Possible discharge home in the morning. MMODL / IJN: [id number] /
[2017-12-14 08:03] LABS: Glucose,Whole Blood 115 mg/dL (75-99)
[2017-12-14 08:28] VITALS: BP 115/63; PULSE 103; RESP 16; TEMP 97.1
[2017-12-14] MEDS: METOPROLOL TARTRATE 25 MG TAB PO SCH (08:50)
[2017-12-14] MEDS: ATORVASTATIN 40 MG TAB PO SCH (08:50)
[2017-12-14] MEDS: FENOFIBRATE 160 MG TAB PO SCH (08:50)
[2017-12-14] MEDS: DIAZEPAM 5 MG TAB PO SCH (08:50)
[2017-12-14] MEDS: CYCLOBENZAPRINE 10 MG TAB PO SCH (08:50)
[2017-12-14] MEDS: ATOMOXETINE HCL 100 MG PO SCH (08:51)
[2017-12-14] MEDS: DIVALPROEX 250 MG TABLET.DR PO SCH (08:51)
[2017-12-14] MEDS: HYDROcodone/APAP 5-325MG 1 EACH TAB PO PRN (08:54)
== END 2017-12-14 11:42 | disposition home or self-care (01) ==
LOC: 3OBS 23:52 → 4MS4W 12-09 16:39
PROVIDERS: ADMIT Family Medicine; ATTEND Family Medicine
DX: M54.81 Occipital neuralgia (principal); R55 Syncope and collapse; E66.01 Morbid (severe) obesity due to excess calories; Z68.37 Body mass index [BMI] 37.0-37.9, adult; E78.5 Hyperlipidemia, unspecified; F32.9 Major depressive disorder, single episode, unspecified; M79.7 Fibromyalgia; J45.909 Unspecified asthma, uncomplicated; I25.2 Old myocardial infarction; I10 Essential (primary) hypertension; M10.9 Gout, unspecified; G89.29 Other chronic pain; Z87.01 Personal history of pneumonia (recurrent); F41.9 Anxiety disorder, unspecified; G25.81 Restless legs syndrome; G40.909 Epilepsy, unspecified, not intractable, without status epilepticus; E11.40 Type 2 diabetes mellitus with diabetic neuropathy, unspecified; G47.33 Obstructive sleep apnea (adult) (pediatric); K21.9 Gastro-esophageal reflux disease without esophagitis; Z83.3 Family history of diabetes mellitus; Z90.710 Acquired absence of both cervix and uterus; Z79.4 Long term (current) use of insulin; Q05.9 Spina bifida, unspecified; M54.12 Radiculopathy, cervical region; G43.909 Migraine, unspecified, not intractable, without status migrainosus; F98.8 Other specified behavioral and emotional disorders with onset usually occurring in childhood and adolescence; Z79.899 Other long term (current) drug therapy; Z91.040 Latex allergy status; Z88.5 Allergy status to narcotic agent; Z91.013 Allergy to seafood; Z88.2 Allergy status to sulfonamides; Z88.8 Allergy status to other drugs, medicaments and biological substances; Z91.018 Allergy to other foods
CPT/HCPCS: 70549; 70553; 72141; 80048; 82550; 82553; 83036; 84484; 85025; 93306; 94640; 95819; 96374; 96376

== ENCOUNTER 2018-02-23 22:49 | Emergency (ER) | payer BC, MEDICARE ==
[2018-02-23 22:58] VITALS: TEMP 98.5
--- NOTE | 2018-02-23 23:01 | ED ---
General Adult HPI - General Stated complaint: Chest Pain Source: patient Mode of arrival: EMS Limitations: no limitations - History of Present Illness Initial comments: This patient is 43-year-old woman who arrives to be evaluated for chest pain. The patient states she had been at work when she started feeling lightheaded like she was going to pass out. 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 She states she also experienced some substernal chest pain, sharp, moderate. She did not note any worsening or relieving factors. -: hour(s) Location: chest Radiation: non-radiation Quality: sharp Consistency: constant Improves with: none Worsens with: none Associated Symptoms: nausea/vomiting - Related Data Home Medications Medication Instructions Recorded Confirmed Albuterol Sulfate [Proair Hfa] 1 - 2 puff INHALATION RT-Q6H PRN 04/12/14 Nortriptyline [Pamelor] 10 mg PO HS 01/31/16 02/23/18 rOPINIRole HCL [Requip] 2 mg PO HS 01/31/16 02/23/18 Zolpidem [Ambien] 10 mg PO HS 12/09/17 02/23/18 Amitriptyline HCl 25 mg PO HS 02/23/18 02/23/18 Hydrochlorothiazide 50 mg PO DAILY 02/23/18 02/23/18 LORazepam [Ativan] 0.5 mg PO TID 02/23/18 02/23/18 Pioglitazone [Actos] 45 mg PO DAILY 02/23/18 02/23/18 Prazosin [Minipress] 2 mg PO DAILY 02/23/18 02/23/18 Topiramate [Topamax] 100 mg PO DAILY 02/23/18 02/23/18 Previous Rx's Medication Instructions Recorded Atorvastatin [Lipitor] 40 mg PO DAILY #30 tab 02/01/16 Fenofibrate [Lofibra] 160 mg PO DAILY #30 tab 02/01/16 Metoprolol Tartrate [Lopressor] 25 mg PO BID #60 tab 02/01/16 HYDROcodone/APAP 5-325MG [[place] 1 tab PO Q6HR PRN #20 tab 07/31/17 5-325] Allergies Allergy/AdvReac Type Severity Reaction Status Date / Time shellfish derived Allergy Unknown Anaphylaxis Verified 02/23/18 23:43 celery Allergy Rash/Hives Verified 02/23/18 23:43 codeine Allergy Unknown Verified 02/23/18 23:43 gabapentin Allergy Unknown Verified 02/23/18 23:43 iodine Allergy Anaphylaxis Verified 02/23/18 23:43 latex Allergy Rash/Hives Verified 02/23/18 23:43 onion Allergy Unknown Verified 02/23/18 23:43 Sulfa (Sulfonamide Allergy Unknown Verified 02/23/18 23:43 Antibiotics) tramadol Allergy Unknown Verified 02/23/18 23:43 cilanto Allergy Anaphylaxis Uncoded 02/23/18 22:57 Review of Systems ROS Statement: Those systems with pertinent positive or pertinent negative responses have been documented in the HPI. ROS Other: All systems not noted in ROS Statement are negative. Constitutional: Denies: fever, chills, weakness Respiratory: Denies: cough, dyspnea, wheezes Cardiovascular: Reports: chest pain. Denies: palpitations, orthopnea, edema, syncope Gastrointestinal: Reports: nausea. Denies: abdominal pain, vomiting, diarrhea Genitourinary: Denies: dysuria, hematuria Musculoskeletal: Denies: back pain Skin: Denies: rash Neurological: Denies: headache, weakness, numbness Past Medical History Past Medical History: Asthma, Chest Pain / Angina, Diabetes Mellitus, Fibromyalgia, GERD/Reflux, Hyperlipidemia, Hypertension, Myocardial Infarction ( [place]), Neurologic Disorder, Pneumonia, Seizure Disorder, Sleep Apnea/CPAP/BIPAP Additional Past Medical History / Comment(s): NEUROPATHY, SPINA BIFIDA, GOUT, urinary retention, chronic pain to her back and legs Last Myocardial Infarction Date:: 2009 History of Any Multi-Drug Resistant Organisms: None Reported Past Surgical History: Section, Cholecystectomy, Hysterectomy, Orthopedic Surgery, Tonsillectomy Additional Past Surgical History / Comment(s): Arthroscopic LEFT KNEE, KIDNEY SURGERY AT AGE 7 Past Anesthesia/Blood Transfusion Reactions: Postoperative Nausea & Vomiting ( PONV) Past Psychological History: Anxiety, Bipolar, Depression, PTSD, Schizophrenia Smoking Status: Never smoker - Past Family History Mother Additional Family Medical History / Comment(s): Mother is alive at age 60 with history of RA, Fibromyalgia. Father Family Medical History: Diabetes Mellitus Additional Family Medical History / Comment(s): Father is alive at age 68 with history of diabetes and sleep apnea. Brother(s) Additional Family Medical History / Comment(s): Patient has 2 brothers. One is healthy and the other has mental health issues and chronic back pain. She does not have any sisters. She has one daughter with bipolar and ADHD. General Exam Limitations: no limitations General appearance: alert, in no apparent distress Head exam: Present: atraumatic, normocephalic Eye exam: Present: normal appearance. Absent: scleral icterus, conjunctival injection ENT exam: Present: normal oropharynx Neck exam: Present: normal inspection, full ROM Respiratory exam: Present: normal lung sounds bilaterally. Absent: respiratory distress, wheezes, rales, rhonchi, stridor Cardiovascular Exam: Present: regular rate, normal rhythm, normal heart sounds. Absent: systolic murmur, diastolic murmur, rubs, gallop GI/Abdominal exam: Present: soft. Absent: distended, tenderness, guarding, rebound Extremities exam: Present: normal inspection, normal capillary refill. Absent: pedal edema, calf tenderness Neurological exam: Present: alert Skin exam: Present: warm, dry, intact, normal color. Absent: rash Course Vital Signs 02/23/18 02/23/18 02/23/18 22:54 23:00 23:30 Temperature 98.5 F Pulse Rate 95 98 103 H Respiratory 20 16 24 Rate Blood Pressure 125/76 125/76 117/74 O2 Sat by Pulse 99 97 98 Oximetry 02/24/18 02/24/18 02/24/18 00:00 01:00 02:00 Temperature Pulse Rate 102 H 104 H 97 Respiratory 20 19 22 Rate Blood Pressure 119/75 119/78 130/85 O2 Sat by Pulse 97 98 95 Oximetry 02/24/18 03:00 Temperature Pulse Rate 110 H Respiratory 11 L Rate Blood Pressure 108/65 O2 Sat by Pulse 98 Oximetry EKG Findings - EKG Results: EKG: interpreted by ERMD, WNL, sinus rhythm, normal axis, normal QRS, normal ST/ T, no acute changes EKG shows: tachycardia (Rate 102 BPM) - [place], Pacemaker, Normal: Normal tracing: normal tracing Medical Decision Making - Lab Data Result diagrams: 02/23/18 23:06 02/23/18 23:06 Lab Results 02/23/18 02/23/18 02/23/18 Range/Units 23:06 23:06 23:06 WBC 15.4 H (3.8-10.6) k/uL RBC 4.63 (3.80-5.40) m/uL Hgb 15.3 (11.4-16.0) gm/dL Hct 42.7 (34.0-46.0) % MCV 92.1 (80.0-100.0) fL MCH 33.0 (25.0-35.0) pg MCHC 35.8 (31.0-37.0) g/dL RDW 12.9 (11.5-15.5) % Plt Count 291 (150-450) k/uL Neutrophils % 74 % Lymphocytes % 19 % Monocytes % 4 % Eosinophils % 1 % Basophils % 1 % Neutrophils # 11.4 H (1.3-7.7) k/uL Lymphocytes # 2.9 (1.0-4.8) k/uL Monocytes # 0.7 (0-1.0) k/uL Eosinophils # 0.1 (0-0.7) k/uL Basophils # 0.1 (0-0.2) k/uL PT (9.0-12.0) sec INR (<1.2) APTT (22.0-30.0) sec D-Dimer (<0.60) mg/L FEU Sodium 136 L (137-145) mmol/L Potassium 3.4 L (3.5-5.1) mmol/L Chloride 98 (98-107) mmol/L Carbon Dioxide 28 (22-30) mmol/L Anion Gap 10 mmol/L BUN 19 H (7-17) mg/dL Creatinine 0.78 (0.52-1.04) mg/dL Est GFR (CKD-EPI)AfAm >90 (>60 ml/min/1.73 sqM) Est GFR (CKD-EPI)NonAf >90 (>60 ml/min/1.73 sqM) Glucose 146 H (74-99) mg/dL Calcium 9.3 (8.4-10.2) mg/dL Magnesium 1.9 (1.6-2.3) mg/dL Total Bilirubin 0.8 (0.2-1.3) mg/dL AST 29 (14-36) U/L ALT 40 (9-52) U/L Alkaline Phosphatase 90 (38-126) U/L Total Creatine Kinase 84 (30-135) U/L CK-MB (CK-2) 0.5 (0.0-2.4) ng/mL CK-MB (CK-2) Rel Index 0.6 Troponin I <0.012 (0.000-0.034) ng/mL Total Protein 6.9 (6.3-8.2) g/dL Albumin 4.0 (3.5-5.0) g/dL 02/23/18 02/24/18 Range/Units 23:06 01:42 WBC (3.8-10.6) k/uL RBC (3.80-5.40) m/uL Hgb (11.4-16.0) gm/dL Hct (34.0-46.0) % MCV (80.0-100.0) fL MCH (25.0-35.0) pg MCHC (31.0-37.0) g/dL RDW (11.5-15.5) % Plt Count (150-450) k/uL Neutrophils % % Lymphocytes % % Monocytes % % Eosinophils % % Basophils % % Neutrophils # (1.3-7.7) k/uL Lymphocytes # (1.0-4.8) k/uL Monocytes # (0-1.0) k/uL Eosinophils # (0-0.7) k/uL Basophils # (0-0.2) k/uL PT 10.4 (9.0-12.0) sec INR 1.1 (<1.2) APTT 25.0 (22.0-30.0) sec D-Dimer 0.25 (<0.60) mg/L FEU Sodium (137-145) mmol/L Potassium (3.5-5.1) mmol/L Chloride (98-107) mmol/L Carbon Dioxide (22-30) mmol/L Anion Gap mmol/L BUN (7-17) mg/dL Creatinine (0.52-1.04) mg/dL Est GFR (CKD-EPI)AfAm (>60 ml/min/1.73 sqM) Est GFR (CKD-EPI)NonAf (>60 ml/min/1.73 sqM) Glucose (74-99) mg/dL Calcium (8.4-10.2) mg/dL Magnesium (1.6-2.3) mg/dL Total Bilirubin (0.2-1.3) mg/dL AST (14-36) U/L ALT (9-52) U/L Alkaline Phosphatase (38-126) U/L Total Creatine Kinase (30-135) U/L CK-MB (CK-2) (0.0-2.4) ng/mL CK-MB (CK-2) Rel Index Troponin I <0.012 (0.000-0.034) ng/mL Total Protein (6.3-8.2) g/dL Albumin (3.5-5.0) g/dL - EKG Data -: EKG Interpreted by [facility] EKG shows normal: sinus rhythm, axis (Normal), intervals (Normal), QRS complexes (Normal), ST-T waves (Normal) Rate: tachycardia (Rate approximately 102 BPM) Disposition Clinical Impression: Chest pain Disposition: HOME SELF-CARE Condition: Good Instructions: Chest Pain (ED) Is patient prescribed a controlled substance at d/c from ED?: No Referrals: Dylan Xiao MD [REFERRING] - 1-2 days
--- NOTE | 2018-02-23 23:43 | XR ---
EXAMINATION TYPE: XR chest 1V portable DATE OF EXAM: 02/23/2018 COMPARISON: 05/17/2017 HISTORY: Chest pain TECHNIQUE: Single frontal view of the chest is obtained. FINDINGS: Heart and mediastinum are normal. Lungs are clear. Diaphragm is normal. Bony thorax appear s normal. IMPRESSION: Normal chest. No change.
[2018-02-23 23:55] LABS: Basophils # (A) 0.1 k/uL (0-0.2); Basophils % (A) 1 %; Eosinophils # (A) 0.1 k/uL (0-0.7); Eosinophils % (A) 1 %; HCT 42.7 % (34.0-46.0); HGB 15.3 gm/dL (11.4-16.0); Lymphocytes # (A) 2.9 k/uL (1.0-4.8); Lymphocytes % (A) 19 %; MCHC 35.8 g/dL (31.0-37.0); MCV 92.1 fL (80.0-100.0); Mean Platelet Volume 7.4; Monocytes # (A) 0.7 k/uL (0-1.0); Monocytes % (A) 4 %; Neutrophils # (A) 11.4 k/uL (1.3-7.7); Neutrophils % (A) 74 %; Platelet Count 291 k/uL (150-450); RBC 4.63 m/uL (3.80-5.40); RDW 12.9 % (11.5-15.5); WBC 15.4 k/uL (3.8-10.6)
[2018-02-24 00:04] LABS: Anion Gap 10 mmol/L; Blood Urea Nitrogen 19 mg/dL (7-17); Calcium 9.3 mg/dL (8.4-10.2); Carbon Dioxide 28 mmol/L (22-30); Chloride 98 mmol/L (98-107); Glucose 146 mg/dL (74-99); Sodium 136 mmol/L (137-145); Total Bilirubin 0.8 mg/dL (0.2-1.3); Total Protein 6.9 g/dL (6.3-8.2)
--- NOTE | 2018-02-24 00:08 | CT ---
EXAMINATION TYPE: CT brain wo con DATE OF EXAM: 02/24/2018 COMPARISON: 07/05/2017 HISTORY: dizziness CT DLP: 1076.4 mGycm. Automated Exposure Control for Dose Reduction was Utilized. TECHNIQUE: CT scan of the head is performed without contrast. FINDINGS: Ventricles of normal size. There is no mass effect nor midline shift. There is no sign of i ntracranial hemorrhage. The calvarium is intact. IMPRESSION: Negative CT scan of the brain. There is clearing of minimal left maxillary sinusitis compared to old exam.
[2018-02-24 00:11] LABS: D-Dimer 0.25 mg/L FEU (<0.60); INR 1.1 (<1.2); Prothrombin Time 10.4 sec (9.0-12.0)
[2018-02-24 00:14] LABS: Creatine Kinase 84 U/L (30-135)
[2018-02-24 00:19] LABS: Potassium 3.4 mmol/L (3.5-5.1)
[2018-02-24 00:20] LABS: ALT 40 U/L (9-52); AST 29 U/L (14-36); Alkaline Phosphatase 90 U/L (38-126); Magnesium 1.9 mg/dL (1.6-2.3)
[2018-02-24 00:27] LABS: Creatine Kinase MB 0.5 ng/mL (0.0-2.4); Troponin I <0.012 ng/mL (0.000-0.034)
[2018-02-24] MEDS ORDERED: ZIPRASIDONE 20 MG CAP PO STA (01:34)
[2018-02-24] MEDS ORDERED: KETOROLAC 30 MG/ML 1 ML VIAL IVP STA (01:34)
[2018-02-24 03:07] VITALS: BP 108/65; PULSE 110; RESP 11
== END 2018-02-24 03:08 | disposition home or self-care (01) ==
LOC: SUPCPDRO 22:49 → EC 22:49
DX: R07.89 Other chest pain (principal); R00.0 Tachycardia, unspecified; R42 Dizziness and giddiness; R11.2 Nausea with vomiting, unspecified; J45.909 Unspecified asthma, uncomplicated; I10 Essential (primary) hypertension; Q05.9 Spina bifida, unspecified; E11.40 Type 2 diabetes mellitus with diabetic neuropathy, unspecified; G40.909 Epilepsy, unspecified, not intractable, without status epilepticus; G47.30 Sleep apnea, unspecified; F31.9 Bipolar disorder, unspecified; F41.9 Anxiety disorder, unspecified; I25.2 Old myocardial infarction; Z88.2 Allergy status to sulfonamides; Z88.5 Allergy status to narcotic agent; Z88.8 Allergy status to other drugs, medicaments and biological substances; Z91.013 Allergy to seafood; Z91.018 Allergy to other foods; Z91.040 Latex allergy status; Z91.048 Other nonmedicinal substance allergy status; Z79.84 Long term (current) use of oral hypoglycemic drugs; Z79.899 Other long term (current) drug therapy; Z99.89 Dependence on other enabling machines and devices
CPT/HCPCS: 99285; 96374; 36415 ×2; 93005; 85379; 80053; 82550; 82553; 83735; 84484 ×2; 85025; 85610; 85730; 71045; 70450; J1885

== ENCOUNTER 2018-03-07 14:55 | Inpatient (IN) | payer BC, MEDICARE ==
[2018-03-07] MEDS ORDERED: SODIUM CHLORIDE 0.9% 1,000 ML IV STA (15:19)
[2018-03-07] MEDS ORDERED: ACTIVATED CHARCOAL-SORBITOL 50 GM/240 ML BOTTLE PO STA (15:20)
--- NOTE | 2018-03-07 16:01 | ED ---
Overdose HPI - General Chief Complaint: Overdose Stated Complaint: poss overdose Time Seen by Provider: 03/07/18 15:15 Source: patient, RN notes reviewed, old records reviewed Mode of arrival: wheelchair Limitations: no limitations - History of Present Illness Initial Comments: This is a 43-year-old female the ER for evaluation. Patient resents today for evaluation overdose. Patient is positive suicidal took multiple psychiatric medications in attempt to kill herself. Patient is a poor strain currently secondary to overdose medications taking effect. She is maintaining airway. History obtained from family, prior charting. MD Complaint: intentional overdose -: hour(s) Intent: suicide attempt, want to go to sleep How Overdose Was Discovered: called family/friend Context: Intentional Overdose: other (Life stressor) Associated Symptoms: depression Treatments Prior to Arrival: none - Related Data Home Medications Medication Instructions Recorded Confirmed rOPINIRole HCL [Requip] 2 mg PO HS 01/31/16 03/07/18 Zolpidem [Ambien] 10 mg PO HS 12/09/17 03/07/18 Amitriptyline HCl 25 mg PO HS 02/23/18 03/07/18 Hydrochlorothiazide 50 mg PO DAILY 02/23/18 03/07/18 LORazepam [Ativan] 0.5 mg PO TID 02/23/18 03/07/18 Pioglitazone [Actos] 45 mg PO DAILY 02/23/18 03/07/18 Prazosin [Minipress] 2 mg PO HS 02/23/18 03/07/18 Topiramate [Topamax] 100 mg PO DAILY 02/23/18 03/07/18 Aspirin EC [Ecotrin Low Dose] 81 mg PO DAILY 03/07/18 03/07/18 Cyclobenzaprine [Flexeril] 5 mg PO Q8H PRN 03/07/18 03/07/18 Famotidine [Pepcid] 20 mg PO DAILY PRN 03/07/18 03/07/18 Lisinopril [Zestril] 2.5 mg PO DAILY 03/07/18 03/07/18 Meclizine [Antivert] 12.5 mg PO BID 03/07/18 03/07/18 Spironolactone 50 mg PO DAILY 03/07/18 03/07/18 predniSONE See Taper PO DAILY 03/07/18 03/07/18 Previous Rx's Medication Instructions Recorded Fenofibrate [Lofibra] 160 mg PO DAILY #30 tab 02/01/16 Allergies Allergy/AdvReac Type Severity Reaction Status Date / Time shellfish derived Allergy Unknown Anaphylaxis Verified 03/07/18 16:50 celery Allergy Rash/Hives Verified 03/07/18 16:50 codeine Allergy Unknown Verified 03/07/18 16:50 gabapentin Allergy Unknown Verified 03/07/18 16:50 iodine Allergy Anaphylaxis Verified 03/07/18 16:50 latex Allergy Rash/Hives Verified 03/07/18 16:50 onion Allergy Unknown Verified 03/07/18 16:50 Sulfa (Sulfonamide Allergy Unknown Verified 03/07/18 16:50 Antibiotics) tramadol Allergy Unknown Verified 03/07/18 16:50 cilanto Allergy Anaphylaxis Uncoded 02/23/18 22:57 Review of Systems ROS Statement: Those systems with pertinent positive or pertinent negative responses have been documented in the HPI. ROS Other: All systems not noted in ROS Statement are negative. Past Medical History Past Medical History: Asthma, Chest Pain / Angina, Diabetes Mellitus, Fibromyalgia, GERD/Reflux, Hyperlipidemia, Hypertension, Myocardial Infarction ( [place]), Neurologic Disorder, Pneumonia, Seizure Disorder, Sleep Apnea/CPAP/BIPAP Additional Past Medical History / Comment(s): NEUROPATHY, SPINA BIFIDA, GOUT, urinary retention, chronic pain to her back and legs Last Myocardial Infarction Date:: 2009 History of Any Multi-Drug Resistant Organisms: None Reported Past Surgical History: Section, Cholecystectomy, Hysterectomy, Orthopedic Surgery, Tonsillectomy Additional Past Surgical History / Comment(s): Arthroscopic LEFT KNEE, KIDNEY SURGERY AT AGE 7 Past Anesthesia/Blood Transfusion Reactions: Postoperative Nausea & Vomiting ( PONV) Past Psychological History: Anxiety, Bipolar, Depression, PTSD, Schizophrenia Smoking Status: Never smoker Past Alcohol Use History: None Reported Past Drug Use History: None Reported - Past Family History Mother Additional Family Medical History / Comment(s): Mother is alive at age 60 with history of RA, Fibromyalgia. Father Family Medical History: Diabetes Mellitus Additional Family Medical History / Comment(s): Father is alive at age 68 with history of diabetes and sleep apnea. Brother(s) Additional Family Medical History / Comment(s): Patient has 2 brothers. One is healthy and the other has mental health issues and chronic back pain. She does not have any sisters. She has one daughter with bipolar and ADHD. General Exam Limitations: altered mental status General appearance: alert, in no apparent distress, lethargic (But arousable) Head exam: Present: atraumatic, normocephalic, normal inspection Eye exam: Present: normal appearance, PERRL, EOMI. Absent: scleral icterus, conjunctival injection, periorbital swelling ENT exam: Present: normal exam, mucous membranes moist Neck exam: Present: normal inspection. Absent: tenderness, meningismus, lymphadenopathy Respiratory exam: Present: normal lung sounds bilaterally. Absent: respiratory distress, wheezes, rales, rhonchi, stridor Cardiovascular Exam: Present: regular rate, normal rhythm, normal heart sounds. Absent: systolic murmur, diastolic murmur, rubs, gallop, clicks GI/Abdominal exam: Present: soft, normal bowel sounds. Absent: distended, tenderness, guarding, rebound, rigid Extremities exam: Present: normal inspection, full ROM, normal capillary refill. Absent: tenderness, pedal edema, joint swelling, calf tenderness Back exam: Present: normal inspection Neurological exam: Present: alert, oriented X3, CN II-XII intact Psychiatric exam: Present: normal affect, normal mood Skin exam: Present: warm, dry, intact, normal color. Absent: rash Course Vital Signs 03/07/18 03/07/1818 15:08 16:00 16:23 Temperature 98.2 F Pulse Rate 104 H 94 Respiratory 20 18 16 Rate Blood Pressure 118/81 117/81 O2 Sat by Pulse 100 100 Oximetry 03/07/18 03/07/18 16:32 16:58 Temperature Pulse Rate 98 92 Respiratory 20 20 Rate Blood Pressure 132/88 121/83 O2 Sat by Pulse 100 100 Oximetry - Reevaluation(s) Reevaluation #1: 03/07/18 17:35 Medical records reviewed Reevaluation #2: 03/07/18 17:35 Patient has no response to Narcan Reevaluation #3: 03/07/18 17:35 Patient remains somnolent in emergency room, protecting airway oxygen percent on room air, will admit for overdose and psychiatric evaluation Medical Decision Making - Medical Decision Making 43 female the ER for evaluation of intentional overdose and suicide attempt. Patient remains somnolent here in the emergency room, pulse ox remains normal, patient will be admitted for psychiatric evaluation and treatment - Lab Data Result diagrams: 03/07/18 16:00 03/07/18 16:00 Lab Results 03/07/18 03/07/18 03/07/18 Range/Units 16:00 16:00 16:00 WBC 11.9 H (3.8-10.6) k/uL RBC 4.58 (3.80-5.40) m/uL Hgb 14.7 (11.4-16.0) gm/dL Hct 43.6 (34.0-46.0) % MCV 95.0 (80.0-100.0) fL MCH 32.0 (25.0-35.0) pg MCHC 33.7 (31.0-37.0) g/dL RDW 13.3 (11.5-15.5) % Plt Count 311 (150-450) k/uL Neutrophils % 66 % Lymphocytes % 26 % Monocytes % 4 % Eosinophils % 2 % Basophils % 1 % Neutrophils # 7.9 H (1.3-7.7) k/uL Lymphocytes # 3.1 (1.0-4.8) k/uL Monocytes # 0.5 (0-1.0) k/uL Eosinophils # 0.2 (0-0.7) k/uL Basophils # 0.1 (0-0.2) k/uL PT (9.0-12.0) sec INR (<1.2) Sodium 141 (137-145) mmol/L Potassium 4.2 (3.5-5.1) mmol/L Chloride 109 H (98-107) mmol/L Carbon Dioxide 25 (22-30) mmol/L Anion Gap 7 mmol/L BUN 12 (7-17) mg/dL Creatinine 0.77 (0.52-1.04) mg/dL Est GFR (CKD-EPI)AfAm >90 (>60 ml/min/1.73 sqM) Est GFR (CKD-EPI)NonAf >90 (>60 ml/min/1.73 sqM) Glucose 109 H (74-99) mg/dL Calcium 9.2 (8.4-10.2) mg/dL Total Bilirubin 0.2 (0.2-1.3) mg/dL AST 19 (14-36) U/L ALT 32 (9-52) U/L Alkaline Phosphatase 69 (38-126) U/L Total Creatine Kinase 46 (30-135) U/L CK-MB (CK-2) <0.2 (0.0-2.4) ng/mL CK-MB (CK-2) Rel Index Total Protein 6.6 (6.3-8.2) g/dL Albumin 3.8 (3.5-5.0) g/dL Lipase 53 (23-300) U/L Urine Color Urine Appearance (Clear) Urine pH (5.0-8.0) Ur Specific [place] (1.001-1.035) Urine Protein (Negative) Urine Glucose (UA) (Negative) Urine Ketones (Negative) Urine Blood (Negative) Urine Nitrite (Negative) Urine Bilirubin (Negative) Urine Urobilinogen (<2.0) mg/dL Ur Leukocyte Esterase (Negative) Urine WBC (0-5) /hpf Urine WBC Clumps (None) /hpf Ur Squamous Epith Cells (0-4) /hpf Amorphous Sediment (None) /hpf Urine Mucus (None) /hpf Urine HCG, Qual (Not Detectd) Salicylates <1.0 mg/dL Urine Opiates Screen (NotDetected) Ur Oxycodone Screen (NotDetected) Urine Methadone Screen (NotDetected) Ur Propoxyphene Screen (NotDetected) Acetaminophen <10.0 ug/mL Ur Barbiturates Screen (NotDetected) U Tricyclic Antidepress (NotDetected) Ur Phencyclidine Scrn (NotDetected) Ur Amphetamines Screen (NotDetected) U Methamphetamines Scrn (NotDetected) U Benzodiazepines Scrn (NotDetected) Urine Cocaine Screen (NotDetected) U Marijuana (THC) Screen (NotDetected) Serum Alcohol <10 mg/dL 03/07/18 03/07/18 03/07/18 Range/Units 16:00 16:40 16:40 WBC (3.8-10.6) k/uL RBC (3.80-5.40) m/uL Hgb (11.4-16.0) gm/dL Hct (34.0-46.0) % MCV (80.0-100.0) fL MCH (25.0-35.0) pg MCHC (31.0-37.0) g/dL RDW (11.5-15.5) % Plt Count (150-450) k/uL Neutrophils % % Lymphocytes % % Monocytes % % Eosinophils % % Basophils % % Neutrophils # (1.3-7.7) k/uL Lymphocytes # (1.0-4.8) k/uL Monocytes # (0-1.0) k/uL Eosinophils # (0-0.7) k/uL Basophils # (0-0.2) k/uL PT 9.5 (9.0-12.0) sec INR 0.9 (<1.2) Sodium (137-145) mmol/L Potassium (3.5-5.1) mmol/L Chloride (98-107) mmol/L Carbon Dioxide (22-30) mmol/L Anion Gap mmol/L BUN (7-17) mg/dL Creatinine (0.52-1.04) mg/dL Est GFR (CKD-EPI)AfAm (>60 ml/min/1.73 sqM) Est GFR (CKD-EPI)NonAf (>60 ml/min/1.73 sqM) Glucose (74-99) mg/dL Calcium (8.4-10.2) mg/dL Total Bilirubin (0.2-1.3) mg/dL AST (14-36) U/L ALT (9-52) U/L Alkaline Phosphatase (38-126) U/L Total Creatine Kinase (30-135) U/L CK-MB (CK-2) (0.0-2.4) ng/mL CK-MB (CK-2) Rel Index Total Protein (6.3-8.2) g/dL Albumin (3.5-5.0) g/dL Lipase (23-300) U/L Urine Color Yellow Urine Appearance Cloudy H (Clear) Urine pH 7.0 (5.0-8.0) Ur Specific [place] 1.013 (1.001-1.035) Urine Protein Negative (Negative) Urine Glucose (UA) Trace H (Negative) Urine Ketones Negative (Negative) Urine Blood Negative (Negative) Urine Nitrite Negative (Negative) Urine Bilirubin Negative (Negative) Urine Urobilinogen <2.0 (<2.0) mg/dL Ur Leukocyte Esterase Moderate H (Negative) Urine WBC 11 H (0-5) /hpf Urine WBC Clumps Rare H (None) /hpf Ur Squamous Epith Cells 7 H (0-4) /hpf Amorphous Sediment Rare H (None) /hpf Urine Mucus Rare H (None) /hpf Urine HCG, Qual Not Detected (Not Detectd) Salicylates mg/dL Urine Opiates Screen Not Detected (NotDetected) Ur Oxycodone Screen Not Detected (NotDetected) Urine Methadone Screen Not Detected (NotDetected) Ur Propoxyphene Screen Not Detected (NotDetected) Acetaminophen ug/mL Ur Barbiturates Screen Not Detected (NotDetected) U Tricyclic Antidepress Detected H (NotDetected) Ur Phencyclidine Scrn Not Detected (NotDetected) Ur Amphetamines Screen Not Detected (NotDetected) U Methamphetamines Scrn Not Detected (NotDetected) U Benzodiazepines Scrn Detected H (NotDetected) Urine Cocaine Screen Not Detected (NotDetected) U Marijuana (THC) Screen Detected H (NotDetected) Serum Alcohol mg/dL - EKG Data -: EKG Interpreted by Me (EKG shows normal sinus rhythm rate 95, AL 142, QRS 80 , QTC 459) Disposition Clinical Impression: Depression, Drug overdose, Suicide attempt by multiple drug overdose Disposition: ADMITTED IP TO THIS [facility] Condition: Fair Is patient prescribed a controlled substance at d/c from ED?: No Referrals: uGillermo Xiao MD [Primary Care Provider] - 1-2 days
[2018-03-07] MEDS ORDERED: NALOXONE 0.4 MG/ML 10 ML VIAL IVP STA (16:15)
[2018-03-07 16:28] LABS: Basophils # (A) 0.1 k/uL (0-0.2); Basophils % (A) 1 %; Eosinophils # (A) 0.2 k/uL (0-0.7); Eosinophils % (A) 2 %; HCT 43.6 % (34.0-46.0); HGB 14.7 gm/dL (11.4-16.0); Lymphocytes # (A) 3.1 k/uL (1.0-4.8); Lymphocytes % (A) 26 %; MCHC 33.7 g/dL (31.0-37.0); Mean Platelet Volume 6.8; Monocytes # (A) 0.5 k/uL (0-1.0); Monocytes % (A) 4 %; Neutrophils # (A) 7.9 k/uL (1.3-7.7); Neutrophils % (A) 66 %; Platelet Count 311 k/uL (150-450); RBC 4.58 m/uL (3.80-5.40); RDW 13.3 % (11.5-15.5); WBC 11.9 k/uL (3.8-10.6)
[2018-03-07 16:37] LABS: INR 0.9 (<1.2); Prothrombin Time 9.5 sec (9.0-12.0)
[2018-03-07 16:44] LABS: ALT 32 U/L (9-52); AST 19 U/L (14-36); Acetaminophen <10.0 ug/mL; Albumin 3.8 g/dL (3.5-5.0); Alcohol <10 mg/dL; Alkaline Phosphatase 69 U/L (38-126); Anion Gap 7 mmol/L; Blood Urea Nitrogen 12 mg/dL (7-17); Calcium 9.2 mg/dL (8.4-10.2); Carbon Dioxide 25 mmol/L (22-30); Chloride 109 mmol/L (98-107); Glucose 109 mg/dL (74-99); Lipase 53 U/L (23-300); Potassium 4.2 mmol/L (3.5-5.1); Salicylate <1.0 mg/dL; Sodium 141 mmol/L (137-145); Total Bilirubin 0.2 mg/dL (0.2-1.3); Total Protein 6.6 g/dL (6.3-8.2)
[2018-03-07 16:53] LABS: Amorphous Sediment,Urine Rare /hpf; Appearance,Urine Cloudy (Clear); Bilirubin,Urine Negative (Negative); Blood,Urine Negative (Negative); Color,Urine Yellow; Glucose,Urine (UA) Trace (Negative); Ketones,Urine Negative (Negative); Leukocyte Esterase,Urine Moderate (Negative); Mucus,Urine Rare /hpf; Nitrite,Urine Negative (Negative); Protein,Urine Negative (Negative); Specific Gravity,Urine 1.013 (1.001-1.035); Squamous Epithelial Cell,Urine 7 /hpf (0-4); Urobilinogen,Urine <2.0 mg/dL (<2.0); WBC,Urine 11 /hpf (0-5)
[2018-03-07 16:54] LABS: Creatine Kinase 46 U/L (30-135)
[2018-03-07 17:02] LABS: Amphetamine Screen,Urine Not Detected (NotDetected); Cocaine Screen,Urine Not Detected (NotDetected); Opiate Screen,Urine Not Detected (NotDetected); Phencyclidine Screen,Urine Not Detected (NotDetected); Urn Cannabinoid Scrn Detected (NotDetected)
[2018-03-07 17:03] LABS: Barbiturate Screen,Urine Not Detected (NotDetected); Benzodiazepines Screen,Urine Detected (NotDetected); Methadone Screen, Urine Not Detected (NotDetected); Oxycodone Screen, Urine Not Detected (NotDetected); Tricyclic Antidepressant,Urine Detected (NotDetected)
[2018-03-07 17:03] LABS: Creatine Kinase MB <0.2 ng/mL (0.0-2.4)
[2018-03-07] MEDS ORDERED: SODIUM CHLORIDE 0.9% 1,000 ML IV ONE (17:36)
[2018-03-07 21:39] VITALS: BMI 36.3
[2018-03-08] MEDS: ENOXAPARIN 40 MG/0.4 ML SYRINGE SQ SCH (07:29)
[2018-03-08] MEDS ORDERED: FAMOTIDINE 20 MG TAB PO PRN (10:28)
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
[2018-03-08] MEDS: SPIRONOLACTONE 25 MG TAB PO SCH (13:30)
[2018-03-08] MEDS: PIOGLITAZONE 45 MG TAB PO SCH (13:31)
[2018-03-08] MEDS: HYDROCHLOROTHIAZIDE 50 MG TAB PO SCH (13:31)
[2018-03-08] MEDS: FENOFIBRATE 160 MG TAB PO SCH (13:31)
[2018-03-08] MEDS: LISINOPRIL 2.5 MG TAB PO SCH (13:31)
[2018-03-08] MEDS: TOPIRAMATE 100 MG TAB PO SCH (13:31)
[2018-03-08] MEDS: ASPIRIN 81 MG PO SCH (13:31)
[2018-03-08] MEDS: SODIUM CHLORIDE 0.9% 1,000 ML IV SCH (16:05)
[2018-03-08 17:02] LABS: Glucose,Whole Blood 98 mg/dL (75-99)
[2018-03-08] MEDS: PRAZOSIN 1 MG CAP PO SCH (19:56)
[2018-03-08 21:05] LABS: Glucose,Whole Blood 103 mg/dL (75-99)
[2018-03-09] MEDS: SODIUM CHLORIDE 0.9% 1,000 ML IV SCH ×3 (02:28→21:11)
[2018-03-09 03:53] LABS: Hemoglobin A1C 7.1 % (4.0-6.0)
[2018-03-09 07:11] LABS: Glucose,Whole Blood 95 mg/dL (75-99)
[2018-03-09] MEDS: FENOFIBRATE 160 MG TAB PO SCH (08:36)
[2018-03-09] MEDS: ASPIRIN 81 MG PO SCH (08:36)
[2018-03-09] MEDS: HYDROCHLOROTHIAZIDE 50 MG TAB PO SCH (08:37)
[2018-03-09] MEDS: PIOGLITAZONE 45 MG TAB PO SCH (08:37)
[2018-03-09] MEDS: SPIRONOLACTONE 25 MG TAB PO SCH (08:37)
[2018-03-09] MEDS: ENOXAPARIN 40 MG/0.4 ML SYRINGE SQ SCH (08:37)
[2018-03-09] MEDS: LISINOPRIL 2.5 MG TAB PO SCH (08:37)
[2018-03-09] MEDS: TOPIRAMATE 100 MG TAB PO SCH (08:37)
[2018-03-09] MEDS ORDERED: TOPIRAMATE 100 MG TAB PO SCH (09:00)
[2018-03-09] MEDS ORDERED: FENOFIBRATE 160 MG TAB PO SCH (09:00)
[2018-03-09] MEDS ORDERED: SPIRONOLACTONE 25 MG TAB PO SCH (09:00)
[2018-03-09] MEDS ORDERED: LISINOPRIL 2.5 MG TAB PO SCH (09:00)
[2018-03-09] MEDS ORDERED: ASPIRIN 81 MG PO SCH (09:00)
[2018-03-09] MEDS ORDERED: HYDROCHLOROTHIAZIDE 50 MG TAB PO SCH (09:00)
[2018-03-09] MEDS ORDERED: PIOGLITAZONE 45 MG TAB PO SCH (09:00)
--- NOTE | 2018-03-09 10:07 | HP ---
HISTORY AND PHYSICAL This is a 43-year-old white female with possible overdose. She states she is severely depressed. Difficulties at home with her family, 18-year-old daughter, suicidal risk. She says she took a lot of Ambien at home and she was recently in the hospital for occipital neuritis and stroke was ruled out and she has had difficulties with the family, it was making her severely depressed. She is still suicidal. She says she wants to go to sleep. HOME MEDICATIONS: 1. Requip for restless legs. 2. Ambien. 3. Amitriptyline. 4. Hydrochlorothiazide. 5. Actos for diabetes. 6. Minipress, she takes for night terrors. 7. Topamax for migraines and occipital neuritis. 8. Flexeril p.o. q.8 hours for cervical spasms. 9. Zestril 2.5 mg daily. 10.Antivert 12.5 b.i.d. p.r.n. for vertigo. 11.Spironolactone 50 mg a day for PCOS. ALLERGIES: SHELLFISH, CELERY, LATEX, SULFA, TRAMADOL. REVIEW OF SYSTEMS: Fourteen point review of systems negative except for mentioned in HPI. FAMILY HISTORY: Father with diabetes mellitus, mom with fibromyalgia. PHYSICAL EXAMINATION: Pulse 94 to 104, temp 98.2, blood pressure 118 to 117 over 60s to70s to 80s, respiratory rate 16 to 18. CARDIOVASCULAR: S1, S2. LUNGS: Clear. MUSCULOSKELETAL: She is tense to palpation paracervical muscles bilaterally. Back normal inspection. NEUROLOGIC: Cranial nerves are intact. PSYCH: Poor mood and affect. SKIN: Warm, dry, intact. No rashes. She appears obtunded and does not open her eyes when she talks, but answers questions appropriately. ASSESSMENT: 1. Suicidal attempt. 2. Suicidal ideations. 3. Intentional overdose on Ambien. Would admit to medical floor. She is medically stable at this time. Psychiatry probably needs to take her to a psych [facility]. Cut down on some of her medications that she takes at home. Anything that she could overdose on will be discontinued. Please see further orders in the chart. DATE OF SERVICE: 03/08/2018 MMODL / IJN: [id number] /
[2018-03-09 11:43] LABS: Glucose,Whole Blood 94 mg/dL (75-99)
[2018-03-09 17:16] LABS: Glucose,Whole Blood 93 mg/dL (75-99)
[2018-03-09 20:31] LABS: Glucose,Whole Blood 110 mg/dL (75-99)
[2018-03-09] MEDS: PRAZOSIN 1 MG CAP PO SCH (21:10)
--- NOTE | 2018-03-09 21:45 | PN ---
PROGRESS NOTE She is in the hospital. She is still depressed. She needs to go to the psychiatric [facility]. States she stopped her bipolar medicine over a year ago. Still has a lot of difficulties with the family, with her daughter. She is mad because her mom says she is faking it to get attention. She is very depressed at this time, wants to go to the psych [facility], waiting for a bed. Vital signs are stable. Afebrile. CARDIOVASCULAR: S1, S2. LUNGS: Clear. GI: Soft. MUSCULOSKELETAL: Some tenderness to palpation over the paracervical muscles. ASSESSMENT: 1. Occipital neuritis. 2. Suicide attempt. 3. Depression. Continue next 24 to 48 hours for transfer to psych [facility]. Continue medications. MMODL / IJN: [id number] /
[2018-03-10] MEDS ORDERED: SODIUM CHLORIDE 0.9% 500 ML 500 ML IV ONE (06:08)
[2018-03-10] MEDS: ACETAMINOPHEN TAB 325 MG TAB PO PRN ×2 (06:25→18:24)
[2018-03-10] MEDS: ONDANSETRON 4 MG/2 ML VIAL IVP PRN ×3 (06:26→18:24)
[2018-03-10 07:04] LABS: Glucose,Whole Blood 96 mg/dL (75-99)
[2018-03-10] MEDS: ENOXAPARIN 40 MG/0.4 ML SYRINGE SQ SCH (08:22)
[2018-03-10] MEDS: PIOGLITAZONE 45 MG TAB PO SCH (08:22)
[2018-03-10] MEDS: FENOFIBRATE 160 MG TAB PO SCH (08:22)
[2018-03-10] MEDS: ASPIRIN 81 MG PO SCH (08:22)
[2018-03-10] MEDS: TOPIRAMATE 100 MG TAB PO SCH (08:22)
[2018-03-10] MEDS: SODIUM CHLORIDE 0.9% 1,000 ML IV SCH ×2 (09:18→18:21)
[2018-03-10] MEDS: LISINOPRIL 2.5 MG TAB PO SCH (10:51)
[2018-03-10] MEDS: HYDROCHLOROTHIAZIDE 50 MG TAB PO SCH (10:51)
[2018-03-10 12:10] LABS: Glucose,Whole Blood 110 mg/dL (75-99)
[2018-03-10] MEDS: SPIRONOLACTONE 25 MG TAB PO SCH (12:42)
[2018-03-10] MEDS: MECLIZINE 12.5 MG TAB PO PRN ×2 (13:37→20:42)
[2018-03-10 17:19] LABS: Glucose,Whole Blood 97 mg/dL (75-99)
--- NOTE | 2018-03-10 18:05 | P.PN ---
Progress Note - Text Progress Note Date: 03/10/18 Interval history: Patient seen in psychiatry follow-up today. She reports that she was admitted after overdose of several medications including sleep medication and sounds like benzodiazepine. Says she has not been on other psychotropic medications for approximately a year. She has history of auditory hallucinations as well as mood symptoms. She has been on multiple different antipsychotics in the past including Abilify which she seemed to tolerate well but she seems to relay that it could've stopped working, she was not on a large dose. She has also trialed Latuda. She relays that she continues to be hearing some voices telling her to hurt herself and continues to have some thoughts of suicide, but relays she can be safe here in the hospital. She is agreeable to inpatient psychiatric admission when bed becomes available. Mental status exam: She is alert and cooperative with the interview. Her speech is fluent, not rapid or pressured. Thought processes are organized. She admits to some ongoing auditory hallucinations telling her to hurt herself. She admits to some ongoing thoughts of suicide but reports she's able to be safe here in the hospital. She also seems to relay that she's having some visual hallucinations. She is fully alert and cooperative. Not showing any agitation. Her mood appears to be depressed. Plan: We'll initiate low-dose Abilify at bedtime 2 mg to help with current psychosis symptoms and certainly may also get benefit for mood. We'll at this time discontinue Requip which can possibly contribute to psychosis symptoms. Psychiatry can follow up with the patient, would maintain one-to-one sitter at this point in time. Land for admission to the psychiatric unit when bed becomes available.
[2018-03-10] MEDS: PRAZOSIN 1 MG CAP PO SCH (20:51)
[2018-03-10] MEDS ORDERED: ARIPiprazole 2 MG TAB PO SCH (21:00)
[2018-03-10] MEDS: IBUPROFEN 400 MG TAB PO PRN (22:25)
[2018-03-10 23:53] LABS: Glucose,Whole Blood 95 mg/dL (75-99)
--- NOTE | 2018-03-11 00:17 | PN ---
PROGRESS NOTE SUBJECTIVE: 43-year-old white female admitted with suicide attempt. Occipital neuritis. Asking for something for headache. Motrin and Tylenol will be alternated. CARDIOVASCULAR: S1/S2. LUNGS: Clear. GI: Soft. HEMATOLOGY: Negative Homans. ASSESSMENT: 1. Occipital neuritis. 2. Suicide attempt. 3. Depression. Continue current treatments. ( ) psych [facility] transfer as she is complaining of severe depression. MMODL / IJN: [id number] /
[2018-03-11] MEDS: ACETAMINOPHEN TAB 325 MG TAB PO PRN ×3 (00:43→17:29)
[2018-03-11] MEDS: ONDANSETRON 4 MG/2 ML VIAL IVP PRN ×3 (00:43→17:32)
[2018-03-11] MEDS ORDERED: PANTOPRAZOLE 40 MG TABLET PO STA (01:03)
[2018-03-11] MEDS: SODIUM CHLORIDE 0.9% 1,000 ML IV SCH ×2 (03:21→11:30)
[2018-03-11 07:06] LABS: Glucose,Whole Blood 108 mg/dL (75-99)
[2018-03-11] MEDS: TOPIRAMATE 100 MG TAB PO SCH (07:59)
[2018-03-11] MEDS: FENOFIBRATE 160 MG TAB PO SCH (07:59)
[2018-03-11] MEDS: ENOXAPARIN 40 MG/0.4 ML SYRINGE SQ SCH (07:59)
[2018-03-11] MEDS: SPIRONOLACTONE 25 MG TAB PO SCH (07:59)
[2018-03-11] MEDS: ASPIRIN 81 MG PO SCH (07:59)
[2018-03-11] MEDS: IBUPROFEN 400 MG TAB PO PRN ×2 (08:04→15:21)
[2018-03-11] MEDS: PIOGLITAZONE 45 MG TAB PO SCH (08:46)
[2018-03-11 11:54] LABS: Glucose,Whole Blood 83 mg/dL (75-99)
--- NOTE | 2018-03-11 12:43 | P.PN ---
Progress Note - Text Progress Note Date: 03/11/18 Patient seen in psychiatric follow-up today. She reports that last night she had a lot of itching with the Abilify and was up all night. She does not want to take the Abilify. She states she feels like she needs a medication to help her with how she is feeling. She continues to verbalize auditory hallucinations and continues to verbalize thoughts of suicide. One to one sitter is present. It sounds like she has never been on Risperdal in the past. She has trialed Latuda and Geodon in the past. At this time will initiate low dose of Risperdal at bedtime to see if this can help with symptoms of psychosis. She is awaiting a bed on the inpatient mental health unit for admission. Continue to monitor for any medication side effects and monitor her ongoing response to medication.
[2018-03-11 17:29] LABS: Glucose,Whole Blood 84 mg/dL (75-99)
[2018-03-11 20:31] LABS: Glucose,Whole Blood 98 mg/dL (75-99)
[2018-03-11] MEDS: risperiDONE 0.5 MG TAB PO SCH (21:34)
[2018-03-11] MEDS: PRAZOSIN 1 MG CAP PO SCH (22:28)
--- NOTE | 2018-03-11 23:12 | PN ---
PROGRESS NOTE SUBJECTIVE: A 43-year-old white female with occipital neuritis and severe depression. She states Abilify made her stay up all night and very jittery. Psychiatry saw her today and switched to Risperdal. Vital signs stable, afebrile. Cardiovascular S1, S2. She has a sitter in the room due to severe depression. Hopefully, she will be transferred to psych unit tomorrow. Continue current medicines for diabetes and hypercholesterolemia. She is on Minipress for night terrors, Topamax for migraines, occipital neuritis, spironolactone for PCOS. Please see further orders. MMODL / IJN: [id number] /
[2018-03-12] MEDS: SODIUM CHLORIDE 0.9% 1,000 ML IV SCH ×3 (01:07→22:17)
[2018-03-12 07:39] LABS: Glucose,Whole Blood 99 mg/dL (75-99)
[2018-03-12] MEDS: ASPIRIN 81 MG PO SCH (08:00)
[2018-03-12] MEDS: FENOFIBRATE 160 MG TAB PO SCH (08:00)
[2018-03-12] MEDS: SPIRONOLACTONE 25 MG TAB PO SCH (08:00)
[2018-03-12] MEDS: TOPIRAMATE 100 MG TAB PO SCH (08:00)
[2018-03-12] MEDS: ENOXAPARIN 40 MG/0.4 ML SYRINGE SQ SCH (08:00)
[2018-03-12] MEDS: PIOGLITAZONE 45 MG TAB PO SCH (08:03)
[2018-03-12] MEDS: IBUPROFEN 400 MG TAB PO PRN ×2 (08:06→20:29)
[2018-03-12 12:34] LABS: Glucose,Whole Blood 81 mg/dL (75-99)
[2018-03-12] MEDS: ACETAMINOPHEN TAB 325 MG TAB PO PRN (13:58)
[2018-03-12 15:07] VITALS: RESP 18
[2018-03-12 16:45] LABS: Glucose,Whole Blood 97 mg/dL (75-99)
[2018-03-12] MEDS: risperiDONE 0.5 MG TAB PO SCH (20:18)
[2018-03-12] MEDS: PRAZOSIN 1 MG CAP PO SCH (20:19)
[2018-03-12 20:32] LABS: Glucose,Whole Blood 101 mg/dL (75-99)
[2018-03-12 23:27] VITALS: BP 109/62; PULSE 107; TEMP 98.1
--- NOTE | 2018-03-13 00:22 | PN ---
PROGRESS NOTE SUBJECTIVE: This is a 43-year-old white female with suicide attempt, severe depression. She is much better on Risperdal 0.5 mg at bedtime x1 day. She is feeling much better from a mental standpoint. She has less suicidal ideations today. Possibly discharge home in a day or two if they cannot find her a psych [facility] to go to. Occipital neuritis is improved with Tylenol Motrin combo. OBJECTIVE: Cardiovascular S1-S2. Lungs clear. GI soft. Psych fair mood and affect. ASSESSMENT: 1. Suicide attempt. 2. Depression. 3. Bipolar, untreated for the past year. 4. Occipital neuritis. PLAN: Continue current treatment with Motrin and Tylenol. Continue Risperdal 0.5 at bedtime. MMODL / IJN: [id number] /
[2018-03-13] MEDS: ACETAMINOPHEN TAB 325 MG TAB PO PRN (01:02)
== END 2018-03-13 01:05 | DRG 918 ==
LOC: EC 14:55 → 4MS4W 17:36 → 3NMEDONC 19:30 → 4MS4W 03-10 17:55
PROVIDERS: ADMIT Family Medicine; ATTEND Family Medicine
DX: T42.6X2A Poisoning by other antiepileptic and sedative-hypnotic drugs, intentional self-harm, initial encounter (principal); F31.5 Bipolar disorder, current episode depressed, severe, with psychotic features; E11.40 Type 2 diabetes mellitus with diabetic neuropathy, unspecified; F43.10 Post-traumatic stress disorder, unspecified; F41.9 Anxiety disorder, unspecified; G25.81 Restless legs syndrome; M79.2 Neuralgia and neuritis, unspecified; G43.909 Migraine, unspecified, not intractable, without status migrainosus; M62.838 Other muscle spasm; E28.2 Polycystic ovarian syndrome; G47.30 Sleep apnea, unspecified; J45.909 Unspecified asthma, uncomplicated; E78.00 Pure hypercholesterolemia, unspecified; E78.5 Hyperlipidemia, unspecified; M54.9 Dorsalgia, unspecified; Q05.9 Spina bifida, unspecified; M79.7 Fibromyalgia; K21.9 Gastro-esophageal reflux disease without esophagitis; I10 Essential (primary) hypertension; R33.9 Retention of urine, unspecified; G89.29 Other chronic pain; I25.2 Old myocardial infarction; Z79.82 Long term (current) use of aspirin; Z79.84 Long term (current) use of oral hypoglycemic drugs; Z79.899 Other long term (current) drug therapy; Z90.710 Acquired absence of both cervix and uterus; Z90.49 Acquired absence of other specified parts of digestive tract; Z87.39 Personal history of other diseases of the musculoskeletal system and connective tissue; Z87.01 Personal history of pneumonia (recurrent); Z91.041 Radiographic dye allergy status; Z88.5 Allergy status to narcotic agent; Z91.013 Allergy to seafood; Z88.2 Allergy status to sulfonamides; Z88.8 Allergy status to other drugs, medicaments and biological substances; Z91.018 Allergy to other foods; Y92.009 Unspecified place in unspecified non-institutional (private) residence as the place of occurrence of the external cause; Z83.3 Family history of diabetes mellitus; Z83.6 Family history of other diseases of the respiratory system; Z81.8 Family history of other mental and behavioral disorders; Z82.0 Family history of epilepsy and other diseases of the nervous system
CPT/HCPCS: 36415; 80053; 80306; 80320; 81001; 81025; 82550; 82553; 83036; 83520; 83690; 85025; 85610; 93005; 96361; 96374; 99285

== ENCOUNTER 2018-03-13 01:20 | Inpatient (IN) | payer BC, MEDICARE ==
[2018-03-13 01:41] VITALS: BMI 35.4
[2018-03-13] MEDS ORDERED: MAGNESIUM HYDROXIDE 2,400 MG/10 ML CUP PO PRN (02:21)
[2018-03-13] MEDS ORDERED: MAG HYDROX/AL HYDROX/SIMETH 30 ML CUP PO PRN (02:21)
[2018-03-13] MEDS ORDERED: ZIPRASIDONE 20 MG VIAL IM PRN (02:21)
[2018-03-13] MEDS ORDERED: LORazepam 1 MG TAB PO PRN (02:21)
[2018-03-13] MEDS: TOPIRAMATE 100 MG TAB PO SCH (08:43)
[2018-03-13] MEDS: PANTOPRAZOLE 40 MG TABLET PO SCH (08:43)
[2018-03-13] MEDS: SPIRONOLACTONE 25 MG TAB PO SCH (08:43)
[2018-03-13] MEDS: PIOGLITAZONE 45 MG TAB PO SCH (08:43)
[2018-03-13] MEDS: FENOFIBRATE 160 MG TAB PO SCH (08:43)
[2018-03-13] MEDS: MECLIZINE 12.5 MG TAB PO SCH ×2 (08:43→20:07)
[2018-03-13] MEDS: ACETAMINOPHEN TAB 325 MG TAB PO PRN ×3 (08:49→18:35)
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
[2018-03-13 12:28] LABS: Glucose,Whole Blood 94 mg/dL (75-99)
[2018-03-13 17:53] LABS: Glucose,Whole Blood 104 mg/dL (75-99)
[2018-03-13] MEDS: PRAZOSIN 1 MG CAP PO SCH (20:07)
[2018-03-13] MEDS ORDERED: risperiDONE 0.5 MG TAB PO SCH (21:00)
[2018-03-13] MEDS ORDERED: PALIPERIDONE 3 MG TAB.ER.24 PO SCH (21:00)
[2018-03-14 06:04] LABS: Glucose,Whole Blood 106 mg/dL (75-99)
[2018-03-14] MEDS: PIOGLITAZONE 45 MG TAB PO SCH (07:55)
[2018-03-14] MEDS: PANTOPRAZOLE 40 MG TABLET PO SCH (07:55)
[2018-03-14] MEDS: FENOFIBRATE 160 MG TAB PO SCH (07:55)
[2018-03-14] MEDS: SPIRONOLACTONE 25 MG TAB PO SCH (07:55)
[2018-03-14] MEDS: MECLIZINE 12.5 MG TAB PO SCH ×2 (07:55→20:16)
[2018-03-14] MEDS: TOPIRAMATE 100 MG TAB PO SCH (07:55)
[2018-03-14] MEDS: ACETAMINOPHEN TAB 325 MG TAB PO PRN ×2 (07:57→12:03)
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
[2018-03-14] MEDS: IBUPROFEN 400 MG TAB PO PRN ×2 (13:54→20:25)
[2018-03-14 17:05] LABS: Glucose,Whole Blood 99 mg/dL (75-99)
[2018-03-14] MEDS: NALTREXONE HCL 50 MG TAB PO SCH (20:16)
[2018-03-14] MEDS: PRAMIPEXOLE 0.5 MG TAB PO SCH (20:17)
[2018-03-14] MEDS: PRAZOSIN 1 MG CAP PO SCH (20:17)
[2018-03-14] MEDS ORDERED: PALIPERIDONE 6 MG TAB.ER.24 PO SCH (21:00)
[2018-03-15 06:19] LABS: Glucose,Whole Blood 92 mg/dL (75-99)
[2018-03-15 07:04] VITALS: RESP 18
[2018-03-15] MEDS: FENOFIBRATE 160 MG TAB PO SCH (07:40)
[2018-03-15] MEDS: SPIRONOLACTONE 25 MG TAB PO SCH (07:40)
[2018-03-15] MEDS: MECLIZINE 12.5 MG TAB PO SCH ×2 (07:40→20:07)
[2018-03-15] MEDS: PIOGLITAZONE 45 MG TAB PO SCH (07:40)
[2018-03-15] MEDS: PANTOPRAZOLE 40 MG TABLET PO SCH (07:41)
[2018-03-15] MEDS: TOPIRAMATE 100 MG TAB PO SCH (07:41)
[2018-03-15] MEDS: IBUPROFEN 400 MG TAB PO PRN ×3 (10:21→20:08)
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
[2018-03-15 17:16] LABS: Glucose,Whole Blood 113 mg/dL (75-99)
[2018-03-15] MEDS: ACETAMINOPHEN TAB 325 MG TAB PO PRN ×2 (17:16→23:46)
[2018-03-15] MEDS: PRAZOSIN 1 MG CAP PO SCH (20:07)
[2018-03-15] MEDS: NALTREXONE HCL 50 MG TAB PO SCH (20:07)
[2018-03-15] MEDS: PRAMIPEXOLE 0.5 MG TAB PO SCH (20:07)
[2018-03-15] MEDS ORDERED: PALIPERIDONE 3 MG TAB.ER.24 PO SCH (21:00)
[2018-03-16] MEDS: IBUPROFEN 400 MG TAB PO PRN ×2 (03:08→12:38)
[2018-03-16 06:28] LABS: Glucose,Whole Blood 89 mg/dL (75-99)
[2018-03-16 06:42] VITALS: TEMP 97.7
[2018-03-16] MEDS: MECLIZINE 12.5 MG TAB PO SCH (07:44)
[2018-03-16] MEDS: PIOGLITAZONE 45 MG TAB PO SCH (07:44)
[2018-03-16] MEDS: PANTOPRAZOLE 40 MG TABLET PO SCH (07:44)
[2018-03-16] MEDS: TOPIRAMATE 100 MG TAB PO SCH (07:45)
[2018-03-16] MEDS: FENOFIBRATE 160 MG TAB PO SCH (07:45)
[2018-03-16] MEDS: SPIRONOLACTONE 25 MG TAB PO SCH (07:45)
[2018-03-16 07:47] VITALS: BP 116/77; PULSE 125
[2018-03-16] MEDS ORDERED: PALIPERIDONE IM 234 MG/1.5 ML SYG IM STA (10:24)
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
--- NOTE | 2018-03-16 16:53 | CONS ---
CONSULTATION SUBJECTIVE: This is a 43-year-old white female with suicidal ideations for medical management. Patient has a history of occipital neuritis recently diagnosed by Neurology, for which we are alternating Tylenol and Motrin. Otherwise, she is on Minipress. She states for a long period of time for night terrors since she was younger. She had one of her bipolar medicines a year ago and recently decided that she needed them or she became suicidal. Occipital neuritis was treated on the medical floor. She is transferred to the psych floor at this time. MEDICATIONS: See list. Fourteen-point review of systems at this time appears to be good. PSYCH: She appears to be hyperactive compared to normal rapid speech, possibly a little bit of morteza. PHYSICAL EXAMINATION: Vital signs stable. Afebrile. MUSCULOSKELETAL: Minimal tenderness, paracervical muscles. LUNGS: Clear. CARDIOVASCULAR: S1, S2. NEUROLOGIC: Intact. ABDOMEN: Soft, distended, obese. HEMATOLOGY: Negative Homans. ASSESSMENT: 1. Occipital neuritis. 2. Bipolar. 3. Depression with suicidal ideations. Please see further orders from Psych. Medically, I would just alternate Motrin and Tylenol for occipital neuritis until we see her as an outpatient. MMODL / IJN: [id number] /
== END 2018-03-16 13:12 | disposition home or self-care (01) | DRG 885 ==
LOC: 3MHU 01:20
PROVIDERS: ADMIT Psychiatry & Neurology Psychiatry; ATTEND Psychiatry & Neurology Psychiatry
DX: F31.9 Bipolar disorder, unspecified (principal); E11.40 Type 2 diabetes mellitus with diabetic neuropathy, unspecified; E78.5 Hyperlipidemia, unspecified; F43.10 Post-traumatic stress disorder, unspecified; G40.909 Epilepsy, unspecified, not intractable, without status epilepticus; G47.30 Sleep apnea, unspecified; I10 Essential (primary) hypertension; I25.2 Old myocardial infarction; J45.909 Unspecified asthma, uncomplicated; K21.9 Gastro-esophageal reflux disease without esophagitis; M79.7 Fibromyalgia; Q05.9 Spina bifida, unspecified; Z79.899 Other long term (current) drug therapy; Z81.8 Family history of other mental and behavioral disorders; Z83.3 Family history of diabetes mellitus; Z90.710 Acquired absence of both cervix and uterus; Z91.19 Patient's noncompliance with other medical treatment and regimen; Z91.041 Radiographic dye allergy status; Z91.040 Latex allergy status; Z88.5 Allergy status to narcotic agent; Z91.013 Allergy to seafood; Z88.2 Allergy status to sulfonamides; Z88.8 Allergy status to other drugs, medicaments and biological substances; Z91.018 Allergy to other foods; Z90.49 Acquired absence of other specified parts of digestive tract
CPT/HCPCS: 80201

== ENCOUNTER 2018-05-22 16:45 | Emergency (ER) | payer BC, MEDICARE ==
[2018-05-22 17:00] VITALS: RESP 18; TEMP 98.2
[2018-05-22] MEDS ORDERED: DEXAMETHASONE 4 MG TAB PO STA (17:19)
[2018-05-22] MEDS ORDERED: diphenhydrAMINE 50 MG CAP PO STA (17:19)
[2018-05-22] MEDS ORDERED: KETOROLAC 60 MG/2 ML VIAL IM STA (17:19)
[2018-05-22] MEDS ORDERED: HYDROcodone/APAP 5-325MG 1 EACH TAB PO STA (17:19)
[2018-05-22] MEDS ORDERED: DIAZEPAM 5 MG TAB PO STA (17:19)
[2018-05-22] MEDS ORDERED: PROCHLORPERAZINE 5 MG TAB PO STA (17:19)
--- NOTE | 2018-05-22 17:23 | ED ---
Headache HPI - General Chief Complaint: Headache Stated Complaint: headache, dizziness Time Seen by Provider: 05/22/18 17:15 Source: RN notes reviewed, old records reviewed Mode of arrival: wheelchair Limitations: no limitations - History of Present Illness Initial Comments: This is a 43-year-old female the ER for evaluation. Patient resents today for evaluation regards to headache and neck pain. Pain in the back of her head radiating down her neck, patient has had similar headaches before with prior evaluations at this ER. She has no medications at home that she takes for headache. No fevers.No nausea vomiting diarrhea. No fevers. No recent head trauma. MD Complaint: headache, other (Neck pain) -: days(s) Onset Description: gradual Location: occipital Severity: moderate Severity scale (1-10): 4 Quality: aching Consistency: constant Improves With: nothing Worsens With: none Context: other (Similar headache in past) Treatments Prior to Arrival: none - Related Data Home Medications Medication Instructions Recorded Confirmed rOPINIRole HCL [Requip] 2 mg PO HS 01/31/16 03/13/18 Previous Rx's Medication Instructions Recorded Fenofibrate [Lofibra] 160 mg PO DAILY #30 tab 02/01/16 Hydrochlorothiazide 50 mg PO DAILY 30 Days #30 tablet 03/16/18 Lisinopril [Zestril] 2.5 mg PO DAILY 30 Days #30 tab 03/16/18 Meclizine [Antivert] 12.5 mg PO BID 30 Days #60 tab 03/16/18 Naltrexone HCl [Revia] 50 mg PO 2100 30 Days #30 tab 03/16/18 Paliperidone IM [Invega Sustenna] 234 mg IM ONCE 28 Days #1 syringe 03/16/18 Prazosin [Minipress] 2 mg PO HS 30 Days #60 cap 03/16/18 Spironolactone 50 mg PO DAILY 30 Days #30 tablet 03/16/18 Topiramate [Topamax] 100 mg PO DAILY 30 Days #30 tab 03/16/18 Allergies Allergy/AdvReac Type Severity Reaction Status Date / Time celery Allergy Severe Anaphylaxis Verified 05/22/18 18:18 codeine Allergy Severe Anaphylaxis Verified 05/22/18 18:18 iodine Allergy Severe Rash/Hives Verified 05/22/18 18:18 Sulfa (Sulfonamide Allergy Severe Anaphylaxis Verified 05/22/18 18:18 Antibiotics) tramadol Allergy Severe Anaphylaxis Verified 05/22/18 18:18 gabapentin Allergy Intermediate Rash/Hives Verified 05/22/18 18:18 latex Allergy Intermediate Rash/Hives Verified 05/22/18 18:18 onion Allergy Intermediate Unknown Verified 05/22/18 18:18 shellfish derived Allergy Intermediate Rash/Hives Verified 05/22/18 18:18 cilanto Allergy Severe Anaphylaxis Uncoded 05/22/18 17:00 Review of Systems ROS Statement: Those systems with pertinent positive or pertinent negative responses have been documented in the HPI. ROS Other: All systems not noted in ROS Statement are negative. Past Medical History Past Medical History: Asthma, Chest Pain / Angina, Diabetes Mellitus, Fibromyalgia, GERD/Reflux, Hyperlipidemia, Hypertension, Myocardial Infarction ( [place]), Neurologic Disorder, Pneumonia, Seizure Disorder, Sleep Apnea/CPAP/BIPAP Additional Past Medical History / Comment(s): NEUROPATHY, SPINA BIFIDA, GOUT, urinary retention, chronic pain to her back and legs Last Myocardial Infarction Date:: 2009 History of Any Multi-Drug Resistant Organisms: None Reported Past Surgical History: Section, Cholecystectomy, Hysterectomy, Orthopedic Surgery, Tonsillectomy Additional Past Surgical History / Comment(s): Arthroscopic LEFT KNEE, KIDNEY SURGERY AT AGE 7 Past Anesthesia/Blood Transfusion Reactions: Postoperative Nausea & Vomiting ( PONV) Past Psychological History: Anxiety, Bipolar, Depression, PTSD, Schizophrenia Smoking Status: Never smoker Past Alcohol Use History: None Reported Past Drug Use History: Marijuana - Past Family History Mother Additional Family Medical History / Comment(s): Mother is alive at age 60 with history of RA, Fibromyalgia. Father Family Medical History: Diabetes Mellitus Additional Family Medical History / Comment(s): Father is alive at age 68 with history of diabetes and sleep apnea. Brother(s) Additional Family Medical History / Comment(s): Patient has 2 brothers. One is healthy and the other has mental health issues and chronic back pain. She does not have any sisters. She has one daughter with bipolar and ADHD. General Exam Limitations: no limitations General appearance: alert, in no apparent distress Head exam: Present: atraumatic, normocephalic, normal inspection Eye exam: Present: normal appearance, PERRL, EOMI. Absent: scleral icterus, conjunctival injection, periorbital swelling ENT exam: Present: normal exam, mucous membranes moist Neck exam: Present: normal inspection. Absent: tenderness, meningismus, lymphadenopathy Respiratory exam: Present: normal lung sounds bilaterally. Absent: respiratory distress, wheezes, rales, rhonchi, stridor Cardiovascular Exam: Present: regular rate, normal rhythm, normal heart sounds. Absent: systolic murmur, diastolic murmur, rubs, gallop, clicks GI/Abdominal exam: Present: soft, normal bowel sounds. Absent: distended, tenderness, guarding, rebound, rigid Extremities exam: Present: normal inspection, full ROM, normal capillary refill. Absent: tenderness, pedal edema, joint swelling, calf tenderness Back exam: Present: normal inspection Neurological exam: Present: alert, oriented X3, CN II-XII intact Psychiatric exam: Present: normal affect, normal mood Skin exam: Present: warm, dry, intact, normal color. Absent: rash Course Vital Signs 05/22/18 16:58 Temperature 98.2 F Pulse Rate 105 H Respiratory 18 Rate Blood Pressure 98/64 O2 Sat by Pulse 99 Oximetry - Reevaluation(s) Reevaluation #1: 05/22/18 18:28 Medical record and prior ER visits are reviewed Medical Decision Making - Medical Decision Making 43 female the ER with headache and neck pain symptoms are chronic in nature, they are improved greatly here in the emergency room and patient can be discharged home Disposition Clinical Impression: Occipital neuritis, Tension headache, Headache Disposition: HOME SELF-CARE Condition: Good Instructions (If sedation given, give patient instructions): Acute Headache (ED ) Is patient prescribed a controlled substance at d/c from ED?: No Referrals: Guillermo Xiao MD [Primary Care Provider] - 1-2 days
[2018-05-22 19:13] VITALS: BP 109/86; PULSE 82
== END 2018-05-22 19:13 | disposition home or self-care (01) ==
LOC: EC 16:45
DX: M54.81 Occipital neuralgia (principal); G44.209 Tension-type headache, unspecified, not intractable; I25.2 Old myocardial infarction; G47.30 Sleep apnea, unspecified; Z79.899 Other long term (current) drug therapy; Z91.018 Allergy to other foods; Z88.5 Allergy status to narcotic agent; Z91.048 Other nonmedicinal substance allergy status; Z88.2 Allergy status to sulfonamides; Z88.8 Allergy status to other drugs, medicaments and biological substances; Z91.040 Latex allergy status; Z91.013 Allergy to seafood
CPT/HCPCS: 99284; 96372; S0183; J8540; J1885

== ENCOUNTER 2018-08-03 15:18 | Emergency (ER) | payer BC, MEDICARE ==
[2018-08-03 15:30] VITALS: RESP 16
[2018-08-03] MEDS ORDERED: ONDANSETRON 4 MG/2 ML VIAL IVP STA (15:38)
[2018-08-03] MEDS ORDERED: PANTOPRAZOLE 40 MG/10 ML VIAL IVP STA (15:38)
[2018-08-03] MEDS ORDERED: SODIUM CHLORIDE 0.9% 1,000 ML IV STA (15:38)
[2018-08-03 15:57] LABS: Basophils # (A) 0.1 k/uL (0-0.2); Basophils % (A) 1 %; Eosinophils # (A) 0.2 k/uL (0-0.7); Eosinophils % (A) 1 %; HCT 47.3 % (34.0-46.0); HGB 15.8 gm/dL (11.4-16.0); Lymphocytes # (A) 3.8 k/uL (1.0-4.8); Lymphocytes % (A) 32 %; MCH 32.6 pg (25.0-35.0); MCHC 33.5 g/dL (31.0-37.0); MCV 97.4 fL (80.0-100.0); Mean Platelet Volume 6.9; Monocytes # (A) 0.8 k/uL (0-1.0); Monocytes % (A) 7 %; Neutrophils # (A) 6.8 k/uL (1.3-7.7); Neutrophils % (A) 57 %; Platelet Count 325 k/uL (150-450); RBC 4.85 m/uL (3.80-5.40); RDW 13.4 % (11.5-15.5); WBC 11.8 k/uL (3.8-10.6)
[2018-08-03 16:04] LABS: Albumin 4.9 g/dL (3.5-5.0); Calcium 10.1 mg/dL (8.4-10.2); Phosphorus 3.7 mg/dL (2.5-4.5); Total Bilirubin 0.7 mg/dL (0.2-1.3); Total Protein 8.3 g/dL (6.3-8.2)
[2018-08-03 16:18] LABS: Amorphous Sediment,Urine Rare /hpf; Appearance,Urine Cloudy (Clear); Bilirubin,Urine Negative (Negative); Blood,Urine Negative (Negative); Color,Urine Light Yellow; Glucose,Urine (UA) Negative (Negative); Ketones,Urine Negative (Negative); Leukocyte Esterase,Urine Negative (Negative); Nitrite,Urine Negative (Negative); PH, Urine 7.5 (5.0-8.0); Protein,Urine Negative (Negative); RBC,Urine 2 /hpf (0-5); Specific Gravity,Urine 1.017 (1.001-1.035); Squamous Epithelial Cell,Urine 4 /hpf (0-4); Urobilinogen,Urine <2.0 mg/dL (<2.0); WBC,Urine 1 /hpf (0-5)
--- NOTE | 2018-08-03 17:20 | ED ---
Abdominal Pain HPI - General Chief Complaint: Abdominal Pain Stated Complaint: Vomiting Time Seen by Provider: 08/03/18 15:35 Source: patient, RN notes reviewed, old records reviewed Mode of arrival: ambulatory Limitations: no limitations - History of Present Illness Initial Comments: This is a 43-year-old female the ER for evaluation. Patient does say for evaluation of abdominal pain. Epigastric and diffuse abdominal pain episodic for a few days now. Patient is also had nausea and vomiting to 4 times a day as well as diarrhea that started last night. No sick contacts or travel history no fevers. No prior history of similar. Patient has had her gallbladder removed. No other prior surgical history. MD Complaint: abdominal pain -: days(s), week(s) Location: diffuse Radiation: none Migration to: no migration Severity: mild Quality: cramping Consistency: intermittent Improves With: nothing Worsens With: nothing Associated Symptoms: nausea, vomiting, diarrhea - Related Data Home Medications Medication Instructions Recorded Confirmed rOPINIRole HCL [Requip] 2 mg PO HS 01/31/16 08/03/18 Naltrexone HCl [Revia] 50 mg PO DAILY 05/22/18 08/03/18 Pioglitazone [Actos] 45 mg PO DAILY 05/22/18 08/03/18 traZODone HCL [Desyrel] 50 mg PO HS 05/22/18 08/03/18 Divalproex ER [Depakote ER] 250 mg PO TID 08/03/18 08/03/18 Dulaglutide [Trulicity] 1.5 mg SQ CERDA 08/03/18 08/03/18 Spironolactone [Aldactone] 50 mg PO DAILY 08/03/18 08/03/18 Topiramate [Topamax] 100 mg PO HS 08/03/18 08/03/18 Previous Rx's Medication Instructions Recorded Hydrochlorothiazide 50 mg PO DAILY 30 Days #30 tablet 03/16/18 Lisinopril [Zestril] 2.5 mg PO DAILY 30 Days #30 tab 03/16/18 Prazosin [Minipress] 2 mg PO HS 30 Days #60 cap 03/16/18 Allergies Allergy/AdvReac Type Severity Reaction Status Date / Time celery Allergy Severe Anaphylaxis Verified 08/03/18 17:34 codeine Allergy Severe Anaphylaxis Verified 08/03/18 17:34 iodine Allergy Severe Rash/Hives Verified 08/03/18 17:34 Sulfa (Sulfonamide Allergy Severe Anaphylaxis Verified 08/03/18 17:34 Antibiotics) tramadol Allergy Severe Anaphylaxis Verified 08/03/18 17:34 gabapentin Allergy Intermediate Rash/Hives Verified 08/03/18 17:34 latex Allergy Intermediate Rash/Hives Verified 08/03/18 17:34 onion Allergy Intermediate Unknown Verified 08/03/18 17:34 shellfish derived Allergy Intermediate Rash/Hives Verified 08/03/18 17:34 cilanto Allergy Severe Anaphylaxis Uncoded 08/03/18 15:30 Review of Systems ROS Statement: Those systems with pertinent positive or pertinent negative responses have been documented in the HPI. ROS Other: All systems not noted in ROS Statement are negative. Past Medical History Past Medical History: Asthma, Chest Pain / Angina, Diabetes Mellitus, Fi bromyalgia, GERD/Reflux, Hyperlipidemia, Hypertension, Myocardial Infarction ([place]), Neurologic Disorder, Pneumonia, Seizure Disorder, Sleep Apnea/CPAP/BIPAP Additional Past Medical History / Comment(s): NEUROPATHY, SPINA BIFIDA, GOUT, urinary retention, chronic pain to her back and legs Last Myocardial Infarction Date:: 2009 History of Any Multi-Drug Resistant Organisms: None Reported Past Surgical History: Section, Cholecystectomy, Hysterectomy, Orthopedic Surgery, Tonsillectomy Additional Past Surgical History / Comment(s): Arthroscopic LEFT KNEE, KIDNEY SURGERY AT AGE 7 Past Anesthesia/Blood Transfusion Reactions: Postoperative Nausea & Vomiting (PONV) Past Psychological History: Anxiety, Bipolar, Depression, PTSD, Schizophrenia Smoking Status: Never smoker Past Alcohol Use History: None Reported Past Drug Use History: Marijuana - Past Family History Mother Additional Family Medical History / Comment(s): Mother is alive at age 60 with history of RA, Fibromyalgia. Father Family Medical History: Diabetes Mellitus Additional Family Medical History / Comment(s): Father is alive at age 68 with history of diabetes and sleep apnea. Brother(s) Additional Family Medical History / Comment(s): Patient has 2 brothers. One is healthy and the other has mental health issues and chronic back pain. She does not have any sisters. She has one daughter with bipolar and ADHD. General Exam Limitations: no limitations General appearance: alert, in no apparent distress Head exam: Present: atraumatic, normocephalic, normal inspection Eye exam: Present: normal appearance, PERRL, EOMI. Absent: scleral icterus, conjunctival injection, periorbital swelling ENT exam: Present: normal exam, mucous membranes moist Neck exam: Present: normal inspection. Absent: tenderness, meningismus, lymphadenopathy Respiratory exam: Present: normal lung sounds bilaterally. Absent: respiratory distress, wheezes, rales, rhonchi, stridor Cardiovascular Exam: Present: regular rate, normal rhythm, normal heart sounds. Absent: systolic murmur, diastolic murmur, rubs, gallop, clicks GI/Abdominal exam: Present: soft, normal bowel sounds. Absent: distended, tenderness, guarding, rebound, rigid Extremities exam: Present: normal inspection, full ROM, normal capillary refill. Absent: tenderness, pedal edema, joint swelling, calf tenderness Back exam: Present: normal inspection Neurological exam: Present: alert, oriented X3, CN II-XII intact Psychiatric exam: Present: normal affect, normal mood Skin exam: Present: warm, dry, intact, normal color. Absent: rash Course Vital Signs 08/03/18 08/03/18 08/03/18 15:26 16:40 17:34 Temperature 98.5 F 99.1 F Pulse Rate 89 89 84 Respiratory 16 16 16 Rate Blood Pressure 117/78 105/62 104/61 O2 Sat by Pulse 100 99 99 Oximetry 08/03/18 19:07 Temperature 99 F Pulse Rate 85 Respiratory 16 Rate Blood Pressure 104/61 O2 Sat by Pulse 97 Oximetry - Reevaluation(s) Reevaluation #1: 08/03/18 19:45 Medical record reviewed Reevaluation #2: 08/03/18 19:45 Symptoms improved with no active nausea vomiting or diarrhea here in the ER Medical Decision Making - Medical Decision Making 23 female the ER for evaluation positive nausea vomiting and diarrhea. Gastroenteritis. Patient has normal CAT scan here in the ER. Patient can be discharged home, normal lab values and is asymptomatic. Patient be given Zofran - Lab Data Result diagrams: 08/03/18 15:42 08/03/18 15:42 Lab Results 08/03/18 08/03/18 08/03/18 Range/Units 15:42 15:42 15:42 WBC 11.8 H (3.8-10.6) k/uL RBC 4.85 (3.80-5.40) m/uL Hgb 15.8 (11.4-16.0) gm/dL Hct 47.3 H (34.0-46.0) % MCV 97.4 (80.0-100.0) fL MCH 32.6 (25.0-35.0) pg MCHC 33.5 (31.0-37.0) g/dL RDW 13.4 (11.5-15.5) % Plt Count 325 (150-450) k/uL Neutrophils % 57 % Lymphocytes % 32 % Monocytes % 7 % Eosinophils % 1 % Basophils % 1 % Neutrophils # 6.8 (1.3-7.7) k/uL Lymphocytes # 3.8 (1.0-4.8) k/uL Monocytes # 0.8 (0-1.0) k/uL Eosinophils # 0.2 (0-0.7) k/uL Basophils # 0.1 (0-0.2) k/uL Sodium 132 L (137-145) mmol/L Potassium 4.0 (3.5-5.1) mmol/L Chloride 93 L (98-107) mmol/L Carbon Dioxide 29 (22-30) mmol/L Anion Gap 10 mmol/L BUN 23 H (7-17) mg/dL Creatinine 1.01 (0.52-1.04) mg/dL Est GFR (CKD-EPI)AfAm 78 (>60 ml/min/1.73 sqM) Est GFR (CKD-EPI)NonAf 68 (>60 ml/min/1.73 sqM) Glucose 84 (74-99) mg/dL Plasma Lactic Acid Leonidas 1.1 (0.7-2.0) mmol/L Calcium 10.1 (8.4-10.2) mg/dL Phosphorus 3.7 (2.5-4.5) mg/dL Magnesium 2.0 (1.6-2.3) mg/dL Total Bilirubin 0.7 (0.2-1.3) mg/dL AST 15 (14-36) U/L ALT 24 (9-52) U/L Alkaline Phosphatase 81 (38-126) U/L Total Protein 8.3 H (6.3-8.2) g/dL Albumin 4.9 (3.5-5.0) g/dL Amylase 50 (30-110) U/L Lipase 41 (23-300) U/L Urine Color Urine Appearance (Clear) Urine pH (5.0-8.0) Ur Specific [place] (1.001-1.035) Urine Protein (Negative) Urine Glucose (UA) (Negative) Urine Ketones (Negative) Urine Blood (Negative) Urine Nitrite (Negative) Urine Bilirubin (Negative) Urine Urobilinogen (<2.0) mg/dL Ur Leukocyte Esterase (Negative) Urine RBC (0-5) /hpf Urine WBC (0-5) /hpf Ur Squamous Epith Cells (0-4) /hpf Amorphous Sediment (None) /hpf 08/03/18 Range/Units 16:00 WBC (3.8-10.6) k/uL RBC (3.80-5.40) m/uL Hgb (11.4-16.0) gm/dL Hct (34.0-46.0) % MCV (80.0-100.0) fL MCH (25.0-35.0) pg MCHC (31.0-37.0) g/dL RDW (11.5-15.5) % Plt Count (150-450) k/uL Neutrophils % % Lymphocytes % % Monocytes % % Eosinophils % % Basophils % % Neutrophils # (1.3-7.7) k/uL Lymphocytes # (1.0-4.8) k/uL Monocytes # (0-1.0) k/uL Eosinophils # (0-0.7) k/uL Basophils # (0-0.2) k/uL Sodium (137-145) mmol/L Potassium (3.5-5.1) mmol/L Chloride (98-107) mmol/L Carbon Dioxide (22-30) mmol/L Anion Gap mmol/L BUN (7-17) mg/dL Creatinine (0.52-1.04) mg/dL Est GFR (CKD-EPI)AfAm (>60 ml/min/1.73 sqM) Est GFR (CKD-EPI)NonAf (>60 ml/min/1.73 sqM) Glucose (74-99) mg/dL Plasma Lactic Acid Leonidas (0.7-2.0) mmol/L Calcium (8.4-10.2) mg/dL Phosphorus (2.5-4.5) mg/dL Magnesium (1.6-2.3) mg/dL Total Bilirubin (0.2-1.3) mg/dL AST (14-36) U/L ALT (9-52) U/L Alkaline Phosphatase (38-126) U/L Total Protein (6.3-8.2) g/dL Albumin (3.5-5.0) g/dL Amylase (30-110) U/L Lipase (23-300) U/L Urine Color Light Yellow Urine Appearance Cloudy H (Clear) Urine pH 7.5 (5.0-8.0) Ur Specific [place] 1.017 (1.001-1.035) Urine Protein Negative (Negative) Urine Glucose (UA) Negative (Negative) Urine Ketones Negative (Negative) Urine Blood Negative (Negative) Urine Nitrite Negative (Negative) Urine Bilirubin Negative (Negative) Urine Urobilinogen <2.0 (<2.0) mg/dL Ur Leukocyte Esterase Negative (Negative) Urine RBC 2 (0-5) /hpf Urine WBC 1 (0-5) /hpf Ur Squamous Epith Cells 4 (0-4) /hpf Amorphous Sediment Rare H (None) /hpf Disposition Clinical Impression: Gastroenteritis Disposition: HOME SELF-CARE Condition: Good Instructions (If sedation given, give patient instructions): Gastroenteritis (ED) Is patient prescribed a controlled substance at d/c from ED?: No Referrals: Guillermo Xiao MD [Primary Care Provider] - 1-2 days
[2018-08-03 17:34] VITALS: BP 104/61
[2018-08-03] MEDS ORDERED: diphenhydrAMINE 50 MG/ML 1 ML VIAL IVP STA (17:47)
[2018-08-03] MEDS ORDERED: methylPREDNISolone SOD SUCCI 125 MG/2 ML VIAL IV STA (17:47)
[2018-08-03] MEDS ORDERED: FAMOTIDINE 20 MG/2 ML VIAL IV STA (17:47)
[2018-08-03 19:09] VITALS: PULSE 85; TEMP 99
--- NOTE | 2018-08-03 19:35 | CT ---
EXAMINATION TYPE: CT abdomen pelvis w con DATE OF EXAM: 08/03/2018 COMPARISON: 08/27/2017 HISTORY: Nausea, vomiting and mid abdominal pain x [address] DLP: 1046.2 mGycm Automated exposure control for dose reduction was used. TECHNIQUE: Helical acquisition of images was performed from the lung bases through the pelvis. CONTRAST: Performed without Oral Contrast and with IV Contrast, patient injected with 100 mL of Isovue 300. FINDINGS: Lung bases are clear. There is no pleural effusion. Liver spleen pancreas appear normal. There are cl ips from cholecystectomy. Stomach appears normal. The bile ducts are not dilated. There is no adrenal mass. Kidneys show satisfactory contrast opacification. There is no hydronephrosi s. There is 2 cm cortical cyst lower pole left kidney. There is no retroperitoneal adenopathy. Ureter s are not dilated. Bladder distends smoothly. There are bilateral ovarian cysts that measure 2.5 cm. There is no free fluid in the pelvis. There is no inguinal hernia. There is hysterectomy. There is no mesenteric edema. There is no sign of a bowel obstruction. There is no free air or ascite s. Appendix is not seen. There is no sign of appendicitis. The lumbar spine is intact. I see no bony destructive process. There is no compression fracture. Bony pelvis is intact. Urinary bladder is larg e and measures 15 cm in height. IMPRESSION: NO RENAL STONE OR OBSTRUCTION. LARGE URINARY BLADDER RAISES THE POSSIBILITY OF BLADDER OUTLET OBSTRUC TION. OVARIAN CYSTS. NO SIGN OF APPENDICITIS.
== END 2018-08-03 20:10 | disposition home or self-care (01) ==
LOC: EC 15:18
DX: K52.9 Noninfective gastroenteritis and colitis, unspecified (principal); I25.2 Old myocardial infarction; G40.909 Epilepsy, unspecified, not intractable, without status epilepticus; F31.9 Bipolar disorder, unspecified; E11.40 Type 2 diabetes mellitus with diabetic neuropathy, unspecified; G47.30 Sleep apnea, unspecified; M79.7 Fibromyalgia; I10 Essential (primary) hypertension; Z79.84 Long term (current) use of oral hypoglycemic drugs; Z79.899 Other long term (current) drug therapy; Z91.018 Allergy to other foods; Z88.5 Allergy status to narcotic agent; Z88.2 Allergy status to sulfonamides; Z91.048 Other nonmedicinal substance allergy status; Z91.013 Allergy to seafood; Z90.49 Acquired absence of other specified parts of digestive tract; Z90.710 Acquired absence of both cervix and uterus; Z88.8 Allergy status to other drugs, medicaments and biological substances
CPT/HCPCS: 36415; 80053; 82150; 83605; 83690; 83735; 84100; 85025; 81001; 87086; 74177; 99284; 96374; 96375 ×4; 96361 ×4; J1200; J2930; J2405; C9113; Q9967

== ENCOUNTER 2018-10-25 20:19 | Emergency (ER) | payer BC, MEDICARE ==
--- NOTE | 2018-10-25 20:47 | ED ---
Headache HPI - General Chief Complaint: Headache Stated Complaint: Headache Time Seen by Provider: 10/25/18 20:38 Source: RN notes reviewed, old records reviewed Mode of arrival: ambulatory Limitations: no limitations - History of Present Illness Initial Comments: This is a 43-year-old female the ER for evaluation history is significant history of psychiatric illness, patient also complains of history of headaches. Patient states her headache is been increasing, she has been recently receiving injections in her neck area for occipital headaches. They're not improving. Patient scheduled for evaluation but has not followed up yet. No nausea vomiting. No trauma. No fever. MD Complaint: headache -: days(s) Onset Description: gradual Location: occipital Severity: moderate Severity scale (1-10): 4 Quality: aching, throbbing Consistency: constant Improves With: nothing Worsens With: none Associated Symptoms: nausea Treatments Prior to Arrival: none - Related Data Home Medications Medication Instructions Recorded Confirmed rOPINIRole HCL [Requip] 2 mg PO HS 01/31/16 10/25/18 Pioglitazone [Actos] 45 mg PO DAILY 05/22/18 10/25/18 traZODone HCL [Desyrel] 50 mg PO HS 05/22/18 10/25/18 Dulaglutide [Trulicity] 1.5 mg SQ CERDA 08/03/18 10/25/18 Spironolactone [Aldactone] 50 mg PO DAILY 08/03/18 10/25/18 Zolpidem [Ambien] 10 mg PO HS 10/25/18 10/25/18 Previous Rx's Medication Instructions Recorded Hydrochlorothiazide 50 mg PO DAILY 30 Days #30 tablet 03/16/18 Lisinopril [Zestril] 2.5 mg PO DAILY 30 Days #30 tab 03/16/18 Prazosin [Minipress] 2 mg PO HS 30 Days #60 cap 03/16/18 Ondansetron Odt [Zofran ODT] 4 mg PO Q8HR PRN #10 tab 08/03/18 Allergies Allergy/AdvReac Type Severity Reaction Status Date / Time celery Allergy Severe Anaphylaxis Verified 10/25/18 20:46 codeine Allergy Severe Anaphylaxis Verified 10/25/18 20:46 iodine Allergy Severe Rash/Hives Verified 10/25/18 20:46 Sulfa (Sulfonamide Allergy Severe Anaphylaxis Verified 10/25/18 20:46 Antibiotics) tramadol Allergy Severe Anaphylaxis Verified 10/25/18 20:46 gabapentin Allergy Intermediate Rash/Hives Verified 10/25/18 20:46 latex Allergy Intermediate Rash/Hives Verified 10/25/18 20:46 onion Allergy Intermediate Unknown Verified 10/25/18 20:46 shellfish derived Allergy Intermediate Rash/Hives Verified 10/25/18 20:46 cilanto Allergy Severe Anaphylaxis Uncoded 10/25/18 20:34 Review of Systems ROS Statement: Those systems with pertinent positive or pertinent negative responses have been documented in the HPI. ROS Other: All systems not noted in ROS Statement are negative. Past Medical History Past Medical History: Asthma, Chest Pain / Angina, Diabetes Mellitus, Fibromyalgia, GERD/Reflux, Hyperlipidemia, Hypertension, Myocardial Infarction ([place]), Neurologic Disorder, Pneumonia, Seizure Disorder, Sleep Apnea/CPAP/BIPAP Additional Past Medical History / Comment(s): NEUROPATHY, SPINA BIFIDA, GOUT, urinary retention, chronic pain to her back and legs Last Myocardial Infarction Date:: 2009 History of Any Multi-Drug Resistant Organisms: None Reported Past Surgical History: Section, Cholecystectomy, Hysterectomy, Orthopedic Surgery, Tonsillectomy Additional Past Surgical History / Comment(s): Arthroscopic LEFT KNEE, KIDNEY SURGERY AT AGE 7 Past Anesthesia/Blood Transfusion Reactions: Postoperative Nausea & Vomiting (PONV) Past Psychological History: Anxiety, Bipolar, Depression, PTSD, Schizophrenia Smoking Status: Never smoker Past Alcohol Use History: None Reported Past Drug Use History: Marijuana - Past Family History Mother Additional Family Medical History / Comment(s): Mother is alive at age 60 with history of RA, Fibromyalgia. Father Family Medical History: Diabetes Mellitus Additional Family Medical History / Comment(s): Father is alive at age 68 with history of diabetes and sleep apnea. Brother(s) Additional Family Medical History / Comment(s): Patient has 2 brothers. One is healthy and the other has mental health issues and chronic back pain. She does not have any sisters. She has one daughter with bipolar and ADHD. General Exam Limitations: no limitations General appearance: alert, in no apparent distress Head exam: Present: atraumatic, normocephalic, normal inspection Eye exam: Present: normal appearance, PERRL, EOMI. Absent: scleral icterus, conjunctival injection, periorbital swelling ENT exam: Present: normal exam, mucous membranes moist Neck exam: Present: normal inspection. Absent: tenderness, meningismus, lymphadenopathy Respiratory exam: Present: normal lung sounds bilaterally. Absent: respiratory distress, wheezes, rales, rhonchi, stridor Cardiovascular Exam: Present: regular rate, normal rhythm, normal heart sounds. Absent: systolic murmur, diastolic murmur, rubs, gallop, clicks GI/Abdominal exam: Present: soft, normal bowel sounds. Absent: distended, tenderness, guarding, rebound, rigid Extremities exam: Present: normal inspection, full ROM, normal capillary refill. Absent: tenderness, pedal edema, joint swelling, calf tenderness Back exam: Present: normal inspection Neurological exam: Present: alert, oriented X3, CN II-XII intact Psychiatric exam: Present: normal affect, normal mood Skin exam: Present: warm, dry, intact, normal color. Absent: rash Course Vital Signs 10/25/18 20:23 Temperature 97.9 F Pulse Rate 87 Respiratory 16 Rate Blood Pressure 119/77 O2 Sat by Pulse 97 Oximetry - Reevaluation(s) Reevaluation #1: 10/25/18 21:41 Medical record reviewed Reevaluation #2: 10/25/18 21:41 Headaches results Medical Decision Making - Medical Decision Making 53 female the ER for evaluation history of headaches, patient coming in for headache today. Patient's headache is now improved, will continue to follow-up regarding further treatment occipital neuritis Disposition Clinical Impression: Migraine Disposition: HOME SELF-CARE Condition: Good Instructions (If sedation given, give patient instructions): Acute Headache (ED) Is patient prescribed a controlled substance at d/c from ED?: No Referrals: Guillermo Xiao MD [Primary Care Provider] - 1-2 days
[2018-10-25] MEDS ORDERED: diphenhydrAMINE 50 MG CAP PO STA (20:57)
[2018-10-25] MEDS ORDERED: PROCHLORPERAZINE 5 MG TAB PO STA (20:57)
[2018-10-25] MEDS ORDERED: HYDROcodone/APAP 5-325MG 1 EACH TAB PO STA (20:57)
[2018-10-25] MEDS ORDERED: KETOROLAC 60 MG/2 ML VIAL IM STA (20:57)
[2018-10-25] MEDS ORDERED: DIAZEPAM 5 MG TAB PO STA (20:57)
[2018-10-25] MEDS ORDERED: DEXAMETHASONE 4 MG TAB PO STA (20:58)
[2018-10-25 21:41] VITALS: RESP 18
[2018-10-25 22:55] VITALS: BP 117/75; PULSE 97; TEMP 98.1
== END 2018-10-25 22:53 | disposition home or self-care (01) ==
LOC: EC 20:19
DX: G43.909 Migraine, unspecified, not intractable, without status migrainosus (principal); I25.2 Old myocardial infarction; I10 Essential (primary) hypertension; E11.40 Type 2 diabetes mellitus with diabetic neuropathy, unspecified; F41.9 Anxiety disorder, unspecified; F32.9 Major depressive disorder, single episode, unspecified; F43.10 Post-traumatic stress disorder, unspecified; F20.9 Schizophrenia, unspecified; G47.30 Sleep apnea, unspecified; Z99.89 Dependence on other enabling machines and devices; Z79.84 Long term (current) use of oral hypoglycemic drugs; Z79.899 Other long term (current) drug therapy; Z88.5 Allergy status to narcotic agent; Z91.048 Other nonmedicinal substance allergy status; Z88.2 Allergy status to sulfonamides; Z88.8 Allergy status to other drugs, medicaments and biological substances; Z91.040 Latex allergy status; Z91.018 Allergy to other foods; Z91.013 Allergy to seafood
CPT/HCPCS: 99284; 96372; S0183; J8540; J1885

== ENCOUNTER 2018-12-06 12:56 | Inpatient (IN) | payer BC, MEDICARE ==
--- NOTE | 2018-12-06 13:15 | ED ---
General Adult HPI - General Chief complaint: Altered Mental Status Stated complaint: Acute mental status changes Time Seen by Provider: 12/06/18 13:00 Source: patient, RN notes reviewed, old records reviewed (Reviewed reports from [facility]) Mode of arrival: wheelchair Limitations: altered mental status - History of Present Illness Initial comments: Patient is a pleasant 43-year-old female presenting to the emergency department as a transfer from [facility]. Patient was seen there with confusion. Patient was alert and oriented 1. Patient had a questionable CT report and therefore is transferred for neurology evaluation. Patient states she does feel somewhat confused. Patient does not have other complaints. Patient denies any new pain. Patient states she is depressed, more depressed than normal however does not feel suicidal. Patient denies any area of weakness. Patient denies slurred speech. No problems with her gait. - Related Data Home Medications Medication Instructions Recorded Confirmed rOPINIRole HCL [Requip] 2 mg PO HS 01/31/16 10/25/18 Pioglitazone [Actos] 45 mg PO DAILY 05/22/18 10/25/18 traZODone HCL [Desyrel] 50 mg PO HS 05/22/18 10/25/18 Dulaglutide [Trulicity] 1.5 mg SQ CERDA 08/03/18 10/25/18 Spironolactone [Aldactone] 50 mg PO DAILY 08/03/18 10/25/18 Zolpidem [Ambien] 10 mg PO HS 10/25/18 10/25/18 Previous Rx's Medication Instructions Recorded Hydrochlorothiazide 50 mg PO DAILY 30 Days #30 tablet 03/16/18 Lisinopril [Zestril] 2.5 mg PO DAILY 30 Days #30 tab 03/16/18 Prazosin [Minipress] 2 mg PO HS 30 Days #60 cap 03/16/18 Ondansetron Odt [Zofran ODT] 4 mg PO Q8HR PRN #10 tab 08/03/18 Allergies Allergy/AdvReac Type Severity Reaction Status Date / Time celery Allergy Severe Anaphylaxis Verified 10/25/18 20:46 codeine Allergy Severe Anaphylaxis Verified 10/25/18 20:46 iodine Allergy Severe Rash/Hives Verified 10/25/18 20:46 Sulfa (Sulfonamide Allergy Severe Anaphylaxis Verified 10/25/18 20:46 Antibiotics) tramadol Allergy Severe Anaphylaxis Verified 10/25/18 20:46 gabapentin Allergy Intermediate Rash/Hives Verified 10/25/18 20:46 latex Allergy Intermediate Rash/Hives Verified 10/25/18 20:46 onion Allergy Intermediate Unknown Verified 10/25/18 20:46 shellfish derived Allergy Intermediate Rash/Hives Verified 10/25/18 20:46 cilanto Allergy Severe Anaphylaxis Uncoded 10/25/18 20:34 Review of Systems ROS Statement: Those systems with pertinent positive or pertinent negative responses have been documented in the HPI. ROS Other: All systems not noted in ROS Statement are negative. Constitutional: Denies: fever Eyes: Denies: eye pain ENT: Denies: ear pain Respiratory: Denies: cough Cardiovascular: Denies: chest pain Endocrine: Denies: fatigue Gastrointestinal: Denies: abdominal pain Genitourinary: Denies: dysuria Musculoskeletal: Denies: back pain Skin: Denies: rash Neurological: Reports: confusion. Denies: weakness Past Medical History Past Medical History: Asthma, Chest Pain / Angina, Diabetes Mellitus, Fibromyalgia, GERD/Reflux, Hyperlipidemia, Hypertension, Myocardial Infarction (IA), Neurologic Disorder, Pneumonia, Seizure Disorder, Sleep Apnea/CPAP/BIPAP Additional Past Medical History / Comment(s): NEUROPATHY, SPINA BIFIDA, GOUT, urinary retention, chronic pain to her back and legs Last Myocardial Infarction Date:: 2009 History of Any Multi-Drug Resistant Organisms: None Reported Past Surgical History: Section, Cholecystectomy, Hysterectomy, Orthopedic Surgery, Tonsillectomy Additional Past Surgical History / Comment(s): Arthroscopic LEFT KNEE, KIDNEY SURGERY AT AGE 7 Past Anesthesia/Blood Transfusion Reactions: Postoperative Nausea & Vomiting (PONV) Past Psychological History: Anxiety, Bipolar, Depression, PTSD, Schizophrenia Smoking Status: Never smoker Past Alcohol Use History: None Reported Past Drug Use History: Marijuana - Past Family History Mother Additional Family Medical History / Comment(s): Mother is alive at age 60 with history of RA, Fibromyalgia. Father Family Medical History: Diabetes Mellitus Additional Family Medical History / Comment(s): Father is alive at age 68 with history of diabetes and sleep apnea. Brother(s) Additional Family Medical History / Comment(s): Patient has 2 brothers. One is healthy and the other has mental health issues and chronic back pain. She does not have any sisters. She has one daughter with bipolar and ADHD. General Exam Limitations: altered mental status General appearance: alert, in no apparent distress Head exam: Present: atraumatic Eye exam: Present: normal appearance, PERRL, EOMI. Absent: nystagmus ENT exam: Present: normal oropharynx Neck exam: Present: normal inspection. Absent: tenderness, meningismus Respiratory exam: Present: normal lung sounds bilaterally Cardiovascular Exam: Present: regular rate, normal rhythm GI/Abdominal exam: Present: soft. Absent: tenderness Extremities exam: Present: normal inspection Neurological exam: Present: alert, CN II-XII intact. Absent: motor sensory deficit Expanded Neurological exam: Present: protecting the airway Patient oriented to: Present: person. Absent: place (Patient notes she is in the hospital however is unclear what city.), time (Is aware of month however not year.) Cranial nerves: EOM's Intact: Normal, Facial Sensation: Normal Sensory exam: Upper Extremity Light Touch: Normal, Lower Extremity Light Touch: Normal Motor strength exam: RUE: 5, LUE: 5, RLE: 5, LLE: 5 Eye Response: (4) open spontaneously Motor Response: (6) obeys commands Verbal Response: (5) oriented Psychiatric exam: Present: normal affect, normal mood Skin exam: Present: normal color Course Vital Signs 12/06/18 12:57 Temperature 98.4 F Pulse Rate 91 Respiratory 18 Rate Blood Pressure 117/104 O2 Sat by Pulse 96 Oximetry Medical Decision Making - Medical Decision Making Patient is updated regarding results and plan. Case was discussed in detail with Dr. Xiao, who will admit his patient. He does request MRI of the bra in. Neurology and psychiatry will be consult. Disposition Clinical Impression: Altered mental status Disposition: ADMITTED IP TO THIS HOSP Is patient prescribed a controlled substance at d/c from ED?: No Referrals: Guillermo Xiao MD [Primary Care Provider] - 1-2 days Decision Time: 13:24
[2018-12-06] MEDS ORDERED: ASPIRIN 325 MG TAB PO STA (13:24)
[2018-12-06] MEDS: SODIUM CHLORIDE 0.9% 1,000 ML IV SCH (13:46)
--- NOTE | 2018-12-06 15:20 | MR ---
EXAMINATION TYPE: MR brain wo con DATE OF EXAM: 12/06/2018 COMPARISON: Prior MRI brain December 12, 2017. CT brain February 23, 2018 HISTORY: Altered mental status, evaluate for stroke TECHNIQUE: Multiplanar, multisequence imaging of the brain and brainstem is performed without IV cont rast. FINDINGS: Suboptimal study as fast protocol had to be utilized due to patient claustrophobia. Diffusion weighted images demonstrate no evidence of a recent infarct or other diffusion abnormality. There is no extraaxial fluid collection or significant white matter signal abnormality. The ventricu lar system and cisternal spaces are normal in size and appearance. The brain volume is age appropria te. Midline structures demonstrate normal morphology. The craniocervical junction appears within normal limits. Normal vascular flow voids are present. The visualized sinuses are clear and the globes are i ntact. IMPRESSION: Suboptimal study without evidence of recent infarct. No suspicious acute findings are gareth dent.
--- NOTE | 2018-12-06 16:38 | US ---
EXAMINATION TYPE: US carotid duplex BILAT DATE OF EXAM: 12/06/2018 COMPARISON: NONE CLINICAL HISTORY: Stenosis. Altered mental status EXAM MEASUREMENTS: RIGHT: Peak Systolic Velocity (PSV) cm/sec ----- Right CCA: 71.6 ----- Right ICA: 80.7 ----- Right ECA: 95.6 ICA/CCA ratio: 1.1 RIGHT: End Diastole cm/sec ----- Right CCA: 18.1 ----- Right ICA: 20.7 ----- Right ECA: 14.1 LEFT: Peak Systolic Velocity (PSV) cm/sec ----- Left CCA: 96.9 ----- Left ICA: 71.1 ----- Left ECA: 68.5 ICA/CCA ratio: 0.7 LEFT: End Diastole cm/sec ----- Left CCA: 21.9 ----- Left ICA: 24.5 ----- Left ECA: 7.6 VERTEBRALS (direction of flow): Right Vertebral: Antegrade Left Vertebral: Antegrade Rhythm: Normal Mild plaque bilateral bifurcations. No evidence of significant stenosis IMPRESSION: There is antegrade flow in the vertebral arteries. The images and measurements suggest c lose to 15% stenosis in both internal carotid arteries. Criteria for Assigning % of Stenosis / Diameter reduction (Estimation based on the indirect measurements of the internal carotid artery velocities (ICA PSV). 1. Normal (no stenosis)=ICA PSV < 125 cm/s: ratio < 2.0: ICA EDV<40 cm/s. 2. Less than 50% stenosis=ICA PSV < 125 cm/s: ratio < 2.0: ICA EDV<40 cm/s. 3. 50 to 69% stenosis=ICA PSV of 125 to 230 cm/s: ration 2.0 ? 4.0: ICA EDV 40-100 cm/s. 4. Greater than 70% stenosis to near occlusion= ICA PSV > 230 cm/s: ratio > 4.0: ICA EDV > 100 cm/s. 5. Near occlusion= ICA PSV velocities may be low or undetectable: variable ratio and ICA EDV. 6. Total occlusion=unable to detect flow.
[2018-12-06 18:09] LABS: Glucose,Whole Blood 80 mg/dL (75-99)
[2018-12-06] MEDS: BUTALB/APAP/CAFF 50-325-40MG TAB PO PRN (20:17)
[2018-12-06] MEDS: PROPRANOLOL 20 MG TAB PO SCH (20:19)
[2018-12-06] MEDS: traZODone HCL 50 MG TAB PO SCH (20:19)
[2018-12-06] MEDS ORDERED: PRAZOSIN 1 MG CAP PO SCH (21:00)
[2018-12-06 21:05] LABS: Glucose,Whole Blood 144 mg/dL (75-99)
--- NOTE | 2018-12-06 22:50 | HP ---
HISTORY AND PHYSICAL CHIEF COMPLAINT: 43-year-old white female presents to the hospital with confusion, altered mental status. She was transferred down from up in the [facility] at the hospital in [place] due to confusion, intermittent. It has been going off for 5 days. She has poor memory of the events that have happened. Does not remember being in the other hospital. She is depressed anxiety but is not suicidal. She has got a history of pseudoseizures and possible seizures in the past and occipital neuritis. Her last admission states this confusion started when she got a occipital neuritis and steroid shots in her neck about 2-3 weeks ago. No problems with her gait. MEDICATIONS: Home medicines: Requip, Actos, Desyrel, Trulicity Aldactone, Ambien. ALLERGIES: CELERY, CODEINE, IODINE, SULFA, TRAMADOL, GABAPENTIN, LASIX, SINUS, SULFA. THIS CILANTRO. PAST MEDICAL HISTORY: Diabetes mellitus, fibromyalgia, GERD, hypertension, dyslipidemia, myocardial infarction, pneumonia, and seizure disorder, sleep apnea, BiPAP, asthma, neuropathy, spina fatigue out urinary retention. Surgery: , cholecystectomy, hysterectomy, orthopedic surgery, tonsillectomy, anxiety, bipolar depression, PTSD, schizophrenia. FAMILY HISTORY: Mother, rheumatoid arthritis. REVIEW OF SYSTEMS: Fourteen point review of systems negative except for mentioned in HPI. Temp 98.4, pulse 91, respiratory 16 18, blood pressure 117/104, O2 96 on room air cardiovascular S1, S2. LUNGS: Clear. Neurologic tenderness palpation over the posterior except occipital and posterior cervical and cervical muscles. Cardiovascular S1-S2. LUNGS: Clear. GI soft. Hematology negative Homans psych, anxious, fair mood and affect. IMPRESSION: Altered mental status, seizure versus pseudo-seizure, anxiety, depression. Continue current treatments. Follow up next 24 to 48 hours. Please see further orders summary. MMODL / IJN: [id number] /
[2018-12-07 03:48] LABS: Appearance,Urine Clear (Clear); Bilirubin,Urine Negative (Negative); Blood,Urine Negative (Negative); Color,Urine Light Yellow; Glucose,Urine (UA) Trace (Negative); Ketones,Urine Negative (Negative); Leukocyte Esterase,Urine Negative (Negative); Nitrite,Urine Negative (Negative); PH, Urine 5.5 (5.0-8.0); Protein,Urine Negative (Negative); Specific Gravity,Urine 1.007 (1.001-1.035); Urobilinogen,Urine <2.0 mg/dL (<2.0)
[2018-12-07] MEDS: SODIUM CHLORIDE 0.9% 1,000 ML IV SCH ×3 (05:24→20:12)
[2018-12-07 06:26] LABS: Glucose,Whole Blood 108 mg/dL (75-99)
[2018-12-07 07:02] LABS: Basophils # (A) 0.1 k/uL (0-0.2); Basophils % (A) 1 %; Eosinophils # (A) 0.1 k/uL (0-0.7); Eosinophils % (A) 1 %; HCT 40.6 % (34.0-46.0); HGB 14.3 gm/dL (11.4-16.0); Lymphocytes # (A) 3.2 k/uL (1.0-4.8); Lymphocytes % (A) 34 %; MCHC 35.3 g/dL (31.0-37.0); MCV 96.2 fL (80.0-100.0); Mean Platelet Volume 6.4; Monocytes # (A) 0.4 k/uL (0-1.0); Monocytes % (A) 5 %; Neutrophils # (A) 5.5 k/uL (1.3-7.7); Neutrophils % (A) 58 %; Platelet Count 303 k/uL (150-450); RBC 4.22 m/uL (3.80-5.40); RDW 13.8 % (11.5-15.5); WBC 9.4 k/uL (3.8-10.6)
[2018-12-07 07:09] LABS: ALT 18 U/L (9-52); AST 16 U/L (14-36); African American GFR (CKD) >90 (>60 ml/min/1.73 sqM); Albumin 3.3 g/dL (3.5-5.0); Alkaline Phosphatase 64 U/L (38-126); Anion Gap 6 mmol/L; Blood Urea Nitrogen 7 mg/dL (7-17); Calcium 8.3 mg/dL (8.4-10.2); Carbon Dioxide 25 mmol/L (22-30); Chloride 109 mmol/L (98-107); Cholesterol 196 mg/dL (<200); Glucose 104 mg/dL (74-99); HDL Cholesterol 46 mg/dL (40-60); LDL Cholesterol,Calculated 113 mg/dL (0-99); Sodium 140 mmol/L (137-145); Total Bilirubin 0.4 mg/dL (0.2-1.3); Triglycerides 183 mg/dL (<150)
[2018-12-07] MEDS: BUTALB/APAP/CAFF 50-325-40MG TAB PO PRN ×2 (08:58→17:10)
[2018-12-07] MEDS: PIOGLITAZONE 45 MG TAB PO SCH (08:58)
[2018-12-07] MEDS: PROPRANOLOL 20 MG TAB PO SCH ×2 (08:58→20:11)
--- NOTE | 2018-12-07 11:52 | ECHOF ---
Referral Reason:Thrombus MEASUREMENTS -------- HEIGHT: 149.9 cm WEIGHT: 91.6 kg BP: RVIDd: 3.3 cm (< 3.3) IVSd: 1.2 cm (0.6 - 1.1) LVIDd: 4.1 cm (3.9 - 5.3) LVPWd: 1.4 cm (0.6 - 1.1) IVSs: 1.5 cm LVIDs: 2.9 cm LVPWs: 1.7 cm LAESV Index (A-L): 22.13 ml/m Ao Diam: 2.6 cm (2.0 - 3.7) AV Cusp: 2.0 cm (1.5 - 2.6) LA Diam: 3.3 cm (2.7 - 3.8) EPSS: 0.3 cm MV E Brent: 0.85 m/s MV DecT: 200 ms MV A Brent: 0.81 m/s MV E/A Ratio: 1.05 RAP: 5.00 mmHg RVSP: 23.46 mmHg MV EF SLOPE: 105.65 mm/s (70 - 150) MV EXCURSION: 1.12 cm (> 18.000) FINDINGS -------- Sinus rhythm. The left ventricular size is normal. There is mild concentric left ventricular hypertrophy. Overa ll left ventricular systolic function is normal with, an EF between 55 - 60 %. The diastolic fillin g pattern is normal for the age of the patient. The right ventricle is mildly enlarged. Left atrium is normal size by volume. The right atrial size is normal. Interatrial and interventricular septum intact. The aortic valve was not well visualized. There is no evidence of aortic regurgitation. There is no evidence of aortic stenosis. Normal appearing mitral valve. Mild tricuspid regurgitation present. There is no evidence of pulmonary hypertension. The right v entricular systolic pressure, as measured by Doppler, is 23.46mmHg. There is no pulmonic regurgitation present. The aortic root size is normal. IVC not well visualized There is no pericardial effusion. CONCLUSIONS -------- 1. Sinus rhythm. 2. The left ventricular size is normal. 3. There is mild concentric left ventricular hypertrophy. 4. Overall left ventricular systolic function is normal with, an EF between 55 - 60 %. 5. The diastolic filling pattern is normal for the age of the patient. 6. The right ventricle is mildly enlarged. 7. Left atrium is normal size by volume. 8. The right atrial size is normal. 9. Interatrial and interventricular septum intact. 10. The aortic valve was not well visualized. 11. There is no evidence of aortic regurgitation. 12. There is no evidence of aortic stenosis. 13. Normal appearing mitral valve. 14. Mild tricuspid regurgitation present. 15. There is no evidence of pulmonary hypertension. 16. The right ventricular systolic pressure, as measured by Doppler, is 23.46mmHg. 17. There is no pulmonic regurgitation present. 18. The aortic root size is normal. 19. IVC not well visualized 20. There is no pericardial effusion. STILL CLEANER: Olga Serrano RDCS
[2018-12-07 12:08] LABS: Glucose,Whole Blood 145 mg/dL (75-99)
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
[2018-12-07] MEDS ORDERED: LORazepam 1 MG TAB PO ONE (16:00)
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
[2018-12-07 16:55] LABS: Glucose,Whole Blood 123 mg/dL (75-99)
[2018-12-07] MEDS: ASPIRIN 325 MG TAB PO SCH (17:08)
--- NOTE | 2018-12-07 18:12 | EEG ---
ELECTROENCEPHALOGRAM REPORT DATE OF PROCEDURE: 12/07/2018 ELECTROENCEPHALOGRAM (EEG) REPORT: TECHNIQUE: A routine 18-channel EEG was performed with video using the 10/20 international electrode placement system. HISTORY: Altered mental status, history of occipital neuritis and possible pseudoseizures. CURRENT MEDICATIONS: Unknown. STUDY DURATION: 25 minutes. FINDINGS: Please note that just prior to the end of this event at 1334:55 sudden low-amplitude asynchronous body jerking, legs as well as head, was noted. This event was not associated with epileptiform activity. There was no postictal slowing. The duration was approximately 15 seconds. BACKGROUND: The background activity consisted of 8 to 9 Hz rhythmic waveforms symmetric distributed through both posterior quadrants. ACTIVATION: Hyperventilation: Not performed. Photic stimulation: Symmetric driving seen. Sleep: Stages I and II sleep noted. ABNORMALITIES: None. IMPRESSION: Normal EEG. No epileptiform activity was present. No seizures were recorded. MMODL / IJN: [id number] /
[2018-12-07] MEDS: CYCLOBENZAPRINE 5 MG TAB PO PRN (18:36)
[2018-12-07] MEDS ORDERED: LORazepam 1 MG TAB PO STA (18:48)
[2018-12-07] MEDS: risperiDONE 1 MG TAB PO SCH (19:03)
[2018-12-07] MEDS: traZODone HCL 50 MG TAB PO SCH (20:11)
[2018-12-07] MEDS: MELATONIN 5 MG TABLET PO SCH (20:11)
[2018-12-07] MEDS: PRAZOSIN 1 MG CAP PO SCH (20:11)
[2018-12-07 20:21] LABS: Glucose,Whole Blood 145 mg/dL (75-99)
[2018-12-08 06:17] LABS: Glucose,Whole Blood 114 mg/dL (75-99)
[2018-12-08] MEDS: PIOGLITAZONE 45 MG TAB PO SCH (08:20)
[2018-12-08] MEDS: SODIUM CHLORIDE 0.9% 1,000 ML IV SCH ×2 (08:20→15:34)
[2018-12-08] MEDS: PROPRANOLOL 20 MG TAB PO SCH ×2 (08:20→21:20)
[2018-12-08] MEDS: ASPIRIN 325 MG TAB PO SCH (08:20)
[2018-12-08] MEDS: risperiDONE 1 MG TAB PO SCH ×2 (08:20→21:20)
--- NOTE | 2018-12-08 10:03 | MR ---
EXAMINATION TYPE: MR cervical spine wo con DATE OF EXAM ORDERED: 12/08/2018 9:56 AM HISTORY: cape-like distribution paresthesia. TECHNOLOGIST HISTORY AT TIME OF EXAM: Cape-like distribution paresthesia COMPARISON: Previous study dated 12/12/2017. TECHNIQUE: Multiplanar, multiecho imaging of the cervical spine was obtained without contrast on a 1 .5 wilber magnet. FINDINGS: The study is compromised by patient motion artifact. Prevertebral soft tissues are normal. Vertebral body height and alignment are maintained. Atlantoaxial relationships are normal. There is a rtifact projecting through the cervical cord. From C2-3 through to C4-5, no abnormality is seen. At C5-C6, I cannot exclude some bilateral intervertebral foraminal narrowing. There is no significant compressive discopathy. The facet and uncovertebral joints are unremarkable. At C6-C7, I cannot exclude some bilateral intervertebral foraminal narrowing. There is no significant compressive discopathy. The facet and uncovertebral joints are unremarkable. At C7-T1, no definite abnormality is seen. IMPRESSION: 1. STUDY REPLETE WITH ARTIFACT. 2. I CANNOT EXCLUDE SOME INTERVERTEBRAL FORAMINAL NARROWING AT C5-6 AND C7.
--- NOTE | 2018-12-08 10:08 | MR ---
EXAMINATION TYPE: MR brain w con DATE OF EXAM: 12/08/2018 COMPARISON: None. HISTORY: AMS TECHNIQUE: Multiplanar, multisequence images of the brain and brainstem is performed with IV contrast, utilizing 9 mL intravenous Gadavist . FINDINGS: The study was performed with intravenous contrast only. There is marked motion artifact. Midline structures are unremarkable. There is a normal craniocervical junction. No acute focal lesion is seen. No abnormal enhancement is identified. IMPRESSION: Limited study demonstrating no acute abnormality.
[2018-12-08] MEDS: BUTALB/APAP/CAFF 50-325-40MG TAB PO PRN ×3 (10:25→21:25)
[2018-12-08] MEDS: CYCLOBENZAPRINE 5 MG TAB PO PRN ×2 (10:27→21:24)
[2018-12-08 11:35] LABS: Glucose,Whole Blood 150 mg/dL (75-99)
[2018-12-08] MEDS: traZODone HCL 50 MG TAB PO SCH (21:20)
[2018-12-08] MEDS: PRAZOSIN 1 MG CAP PO SCH (21:20)
[2018-12-08] MEDS: MELATONIN 5 MG TABLET PO SCH (21:20)
[2018-12-09] MEDS: SODIUM CHLORIDE 0.9% 1,000 ML IV SCH ×3 (04:49→21:17)
[2018-12-09] MEDS: BUTALB/APAP/CAFF 50-325-40MG TAB PO PRN ×2 (08:14→20:24)
[2018-12-09] MEDS: ASPIRIN 325 MG TAB PO SCH (08:14)
[2018-12-09] MEDS: PROPRANOLOL 20 MG TAB PO SCH ×2 (08:14→20:24)
[2018-12-09] MEDS: risperiDONE 1 MG TAB PO SCH ×2 (08:14→20:24)
[2018-12-09] MEDS: CYCLOBENZAPRINE 5 MG TAB PO PRN ×2 (08:14→20:24)
[2018-12-09] MEDS: PIOGLITAZONE 45 MG TAB PO SCH (08:14)
[2018-12-09] MEDS: KETOROLAC 30 MG/ML 1 ML VIAL IVP SCH ×3 (11:26→23:32)
--- NOTE | 2018-12-09 18:52 | P.PN ---
Subjective Progress Note Date: 12/09/18 Principal diagnosis: AMS BUE numbness h/o CTS MRI Brain x2, MRI C-spine, carotid duplex, TTE and EEG done. Results reviewed. Patient has chronic BUE numbness. States she sees Dr. Thurston outpatient and 3-6 months ago had EMG of BUE that showed severe CTS. She also has chronic head aches. Muscle relaxants partially relieve them. She does not recall trying other neuropathic pain meds. She did undergo multiple occipital nerve blocks and nerve ablation, without complete success. She does have follow-up appointment with her primary neurologist in 12/2018. Her mentation is back to baseline. No new neuro c/o. Objective - Vital Signs Vital signs: Vital Signs Temp 97.2 F L 12/09/18 13:59 Pulse 105 H 12/09/18 13:59 Resp 16 12/09/18 13:59 BP 108/69 12/09/18 13:59 Pulse Ox 97 12/09/18 13:59 Intake & Output 12/08/18 12/09/18 12/09/18 18:59 06:59 18:59 Intake Total 880 900 Balance 880 900 Weight 89.499 kg Intake: Oral 880 900 Other: # Voids 1 2 # Bowel Movements 0 - Exam Gen NAD Pleasant and cooperative MS A+Ox4 Normal fluency and comprehension Able to follow all commands and articulate detailed medical history with me today CN II-XII grossly intact no nystagmus Motor Normal bulk/tone No tremors RADER x4 Sens Intact to LT x4 Coord Not tested DTRs 2+/4 sym throughout Gait Deferred - Labs CBC & Chem 7: 12/07/18 06:38 12/07/18 06:38 - Imaging and Cardiology MRI Brain wo roxie 12/06/18. No acute infarct. Suboptimal study due to motion artifacts. MRI Brain w roxie 12/08/18. No acute infarct. No abnormal enhancement. Suboptimal study due to motion artifacts. MRI C-spine w wo roxie 12/08/18. Cannot exclude C5-C6 and C6-C7 intervertebral stenosis due to motion artifacts. Carotid duplex 12/06/18. BICA 15% stenosis. Antegrade flow in both vertebral arteries. TTE 12/06/18. LV size normal. Mild concentric LVH. EF 55-60%. RV mildly enlarged. LA size normal. Mild TR. I have reviewed neuroimages myself. Assessment and Plan Assessment: AMS, resolved. Leaning towards psychiatric episode. s/p extensive yet basically unrevealing inpatient neuro work-up. BUE numbness- per patient her recent EMG by Dr. Thurston did not show cervical radiculopathy, but it did demonstrate severe CTS. Chronic intractable headaches, at least with tension component as she is partially responsive to muscle relaxants. Plan: -No further inpatient neuro work-up suggested. -Further treatment and disposition per psychiatry and primary team. -She should follow up with Dr. Thurston for continued headache management. We did broach the subject of neuropathic pain meds, but in the long run it'd be better for her to make the decision of choosing a long-term agent together with her primary neurologist. She agrees. -Follow up with Dr. Thurston regarding her report of severe CTS that may explain her BUE numbness. -No other inpatient neuro recs at this time. Will revisit patient prn. Please call with new ?. Thank you again for this consultation. Time with Patient: Less than 30 (Time spent in direct patient care, greater than 50% of which was spent in [id number] counseling and coordination of care: 25 minutes)
[2018-12-09] MEDS: traZODone HCL 50 MG TAB PO SCH (20:24)
[2018-12-09] MEDS: PRAZOSIN 1 MG CAP PO SCH (20:24)
[2018-12-09] MEDS: MELATONIN 5 MG TABLET PO SCH (20:24)
--- NOTE | 2018-12-09 21:28 | PN ---
PROGRESS NOTE SUBJECTIVE: 43-year-old white female who was admitted with pseudoseizures, occipital neuritis, headaches. She is still complaining of a headache, occipital neuritis. Medication was adjusted today. Neurology and Psychiatry, we are waiting for their opinion. Will get epidural, possibly in the cervical spine tomorrow for occipital neuritis. May need to be followed up as an outpatient with Pain Clinic. Psychiatry will possibly take the psych [facility] tomorrow as she has history of severe depression, pseudoseizures, and possibly a mental status affected by her psych history. MRI of the brain is negative. MRI of the cervical spine is negative. EEG is negative. Possible discharge to the psych [facility] tomorrow. MMODL / IJN: [id number] /
[2018-12-10] MEDS: KETOROLAC 30 MG/ML 1 ML VIAL IVP SCH ×4 (05:23→23:12)
[2018-12-10] MEDS: ASPIRIN 325 MG TAB PO SCH (08:14)
[2018-12-10] MEDS: risperiDONE 1 MG TAB PO SCH ×2 (08:14→20:21)
[2018-12-10] MEDS: PROPRANOLOL 20 MG TAB PO SCH ×2 (08:14→20:22)
[2018-12-10] MEDS: PIOGLITAZONE 45 MG TAB PO SCH (08:15)
[2018-12-10] MEDS: BUTALB/APAP/CAFF 50-325-40MG TAB PO PRN ×2 (08:27→20:21)
[2018-12-10] MEDS: CYCLOBENZAPRINE 5 MG TAB PO PRN ×2 (08:27→20:22)
[2018-12-10] MEDS: SODIUM CHLORIDE 0.9% 1,000 ML IV SCH ×2 (08:31→17:55)
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
[2018-12-10] MEDS: PRAZOSIN 1 MG CAP PO SCH (20:21)
[2018-12-10] MEDS: MELATONIN 5 MG TABLET PO SCH (20:22)
[2018-12-10] MEDS: traZODone HCL 50 MG TAB PO SCH (20:22)
[2018-12-11] MEDS: SODIUM CHLORIDE 0.9% 1,000 ML IV SCH ×2 (00:22→15:25)
[2018-12-11] MEDS: KETOROLAC 30 MG/ML 1 ML VIAL IVP SCH ×3 (06:03→18:05)
[2018-12-11] MEDS: PROPRANOLOL 20 MG TAB PO SCH ×3 (09:24→22:14)
[2018-12-11] MEDS: risperiDONE 1 MG TAB PO SCH ×3 (09:24→21:27)
[2018-12-11] MEDS ORDERED: LACTATED RINGERS 1,000 ML IV ONE (10:32)
[2018-12-11 10:52] LABS: Glucose,Whole Blood 115 mg/dL (75-99)
--- NOTE | 2018-12-11 11:08 | P.PCN ---
Date of Procedure: 12/11/18 Procedure(s) Performed: . PROCEDURE 1. Cervical epidural steroid injection under fluoroscopic guidance, C7-T1 (fluoroscopy images available in the radiology department ) 2. Cervical epidurogram. PREOPERATIVE DIAGNOSIS: 1- Cervical spinal stenosis. 2- Cervical radiculopathy., 3-occipital neuralgia POSTOPERATIVE DIAGNOSIS: : 1- Cervical spinal stenosis. 2- Cervical radiculopathy. 3-occipital neuralgia ANESTHESIA: Local anesthesia with lidocaine 1 % , and moderate sedation, with Versed 2 mg and Fentanyl 50 mcg. EBL 0 PROCEDURE INDICATION: The patient with neck pain and radiculitis unresponsive to conservative treatment consents for procedure. PROCEDURE DESCRIPTION / TECHNIQUE: The patient was seen and identified in the preoperative area. Risks, benefits, complications, including but not limited to infections ,bleeding , allergic reactions to the medications ,and not complete pain releife, and alternatives were discussed with the patient, the patient agreed to proceed with the procedure and signed the consent. Patient was taken to the OR and time out was completed. The patient was placed in the prone position on the procedure table. A pillow was placed under the patients chest to increase the cervical interlaminar space. The cervical area was prepped and draped in the usual sterile fashion. Vital signs were closely monitored during the procedure. Conscious sedation was used during the procedure to decrease patients anxiety. Using anterior-posterior fluoroscopy, the C7-T1 interlaminar space was identified and the skin over this site was marked and then infiltrated with 1% lidocaine subcutaneously. Subsequently, a 20-gauge 3-1/2-inch Tuohy epidural needle was inserted and advanced toward the epidural space by means of the ``hanging-drop technique and guided by AP and lateral fluoroscopy. The correct needle position in the epidural space was verified with the injection of 2 mL of the water soluble contrast dye [id number] and observing an excellent epidurogram with the epidural spread of the dye, after negative aspiration for blood and CSF and in the absence of paresthesias. Again after negative aspiration, mixture containing 20 mg Dexamethasone and 2 ml of preservative- free normal saline injected and a washout of epidurogram was seen. Needle was withdrawn intact, skin was cleansed, and bandages were applied. Complications= none. Disposition= patient was placed in supine position and transferred to the recovery room area in stable condition and there was no evidence of upper or lower extremity motor or sensory deficit after the procedure patient was discharged from recovery room after discharge criteria met and home discharge instructions was given by the staff and patient will follow with the pain clinic in 2-4 weeks
[2018-12-11] MEDS: PIOGLITAZONE 45 MG TAB PO SCH (11:55)
[2018-12-11] MEDS: BUTALB/APAP/CAFF 50-325-40MG TAB PO PRN ×2 (12:00→22:13)
[2018-12-11] MEDS: CYCLOBENZAPRINE 5 MG TAB PO PRN (12:01)
[2018-12-11] MEDS: CEPHALEXIN 500 MG CAP PO SCH ×2 (12:26→21:52)
[2018-12-11] MEDS: LACTATED RINGERS 1,000 ML IV SCH (12:55)
--- NOTE | 2018-12-11 14:48 | FL ---
Fluoroscopy HISTORY: Pain 4 seconds fluoroscopy time supplied to the referring clinician. 2 intraoperative C-arm images docume nt the procedure. See dictated report from anesthesia.
--- NOTE | 2018-12-11 15:33 | P.PN ---
Subjective Progress Note Date: 12/10/18 This is a 43-year-old female admitted with pseudoseizures, subtitle neuritis headaches and multiple other medical issues. Evaluated by both neurology and psychiatry with recommendations noted. Persistent headache, neck ache. Pain management consulted, recommending cervical epidural steroid injection tomorrow as patient has already ate breakfast today. Vital signs stable Objective - Vital Signs Vital signs: Vital Signs Temp 98.0 F 12/10/18 13:20 Pulse 104 H 12/10/18 13:20 Resp 16 12/10/18 13:20 BP 142/87 12/10/18 13:20 Pulse Ox 98 12/10/18 13:20 Intake & Output 12/09/18 12/10/18 12/10/18 18:59 06:59 18:59 Intake Total 900 650 540 Balance 900 650 540 Intake: Oral 900 650 540 Other: Voiding Method Toilet Toilet # Voids 2 1 2 - Exam PHYSICAL EXAM: VITAL SIGNS: [As above] GENERAL: Sitting up in bed, no acute distress, calm, cooperative HEENT: Conjunctivae normal. eyes normal. NECK: No JVD. No thyroid enlargement. No LNs CARDIOVASCULAR: S1, S2 regular.. No murmur RESPIRATION: Breath sounds diminished in the bases. No rhonchi or crackles. No bronchial breathing. ABDOMEN: Soft, nontender . No guarding. no masses palpable. Bowel sounds heard. LEGS: No edema. no swelling PSYCHIATRY: Alert and oriented X3, mood and affect normal. NERVOUS SYSTEM: Cranial N 2-12 grossly normal. Moves all 4 limbs. No focal deficits. Strength and sensation grossly intact.. Skin: no lesions, no rash - Labs CBC & Chem 7: 12/07/18 06:38 12/07/18 06:38 Assessment and Plan Assessment: -Cervical radiculopathy -Cervical foraminal, spinal stenosis -Occipital neuralgia , occipital neuritis -Chronic intractable headache -Chronic intermittent asthma, stable -Diabetes mellitus -Gastroesophageal reflux disease -Hypertension -Hyperlipidemia -Seizure disorder -Sleep apnea, on CPAP/BiPAP -Anxiety -Bipolar, depression -Schizophrenia -PTSD Plan: Continue on current medication regime ,monitoring and symptomatic treatment. Scheduled for steroid injection tomorrow with pain management services. Following injection, patient will be discharged to mental health unit. Further recommendations to follow. The impression and plan of care has been dictated as directed. : I performed a history and examination of this patient, discussed the same with the dictator. I agree with the dictator's note ,documented as a scribe. Any additional findings or plans will be noted.
--- NOTE | 2018-12-11 15:38 | P.DS ---
Providers Date of admission: 12/09/18 13:11 Expected date of discharge: 12/11/18 Attending physician: Guillermo Xiao Consults: 12/06/18 13:25 Consult Physician Urgent Consulting Provider: Brittany Echevarria Consult Reason/Comments: Evaluate for stroke Do you want consulting provider notified?: Yes Consult Physician Urgent Consulting Provider: Roland Stubbs Consult Reason/Comments: Psychiatric evaluation Do you want consulting provider notified?: Yes 12/09/18 10:23 Consult to Anesthesia Routine Consulting Provider: Anesthesia,Services Consult Reason/Comments: Medicine requesting epidural injections to neck for migraines Primary care physician: [facility] Course: Final Diagnoses: -Cervical radiculopathy -Cervical foraminal, spinal stenosis -Occipital neuralgia , occipital neuritis, status post cervical epidural steroid injection -Chronic intractable headache -Chronic intermittent asthma, stable -Diabetes mellitus -Gastroesophageal reflux disease -Hypertension -Hyperlipidemia -Seizure disorder -Sleep apnea, on CPAP/BiPAP -Anxiety -Bipolar, depression -Schizophrenia -PTSD Hospital course:This is a 43-year-old female admitted with pseudoseizures, subti tle neuritis headaches and multiple other medical issues. Evaluated by both neurology and psychiatry with recommendations noted. Persistent headache, neck ache. Pain management consulted, recommending cervical epidural steroid injection tomorrow as patient has already ate breakfast today. Vital signs stable Status post cervical steroid injection. Significant clinical improvement. Vital signs stable. Cleared by pain management and all other consults for discharge. Patient is being discharged to mental health unit in a stable condition with guarded prognosis. EXAM: GENERAL: Alert and oriented 3, no acute distress CARDIOVASCULAR: S1, S2 regular.. No murmur RESPIRATION: Breath sounds diminished in the bases. No rhonchi or crackles. No bronchial breathing. ABDOMEN: Soft, nontender . No guarding. no masses palpable. Bowel sounds heard. NERVOUS SYSTEM: Cranial N 2-12 grossly normal. Moves all 4 limbs. No focal deficits. Strength and sensation grossly intact.. The impression and plan of care has been dictated as directed. : I performed a history and examination of this patient, discussed the same with the dictator. I agree with the dictator's note ,documented as a scribe. Any additional findings or plans will be noted. Time taken: 35 minutes Patient Condition at Discharge: Stable Plan - Discharge Summary Discharge Rx Participant: Yes New Discharge Prescriptions: New Aspirin EC [Ecotrin Low Dose] 81 mg PO DAILY #1 tablet. Cyclobenzaprine [Flexeril] 5 mg PO Q12HR PRN tab PRN Reason: Muscle Spasm Melatonin 5 mg PO HS tablet Prazosin [Minipress] 3 mg PO HS cap risperiDONE [RisperDAL] 1 mg PO BID tab Cephalexin [Keflex] 500 mg PO Q8H cap INSULIN LISPRO (HumaLOG) [humaLOG] 0 unit SQ ACHS #1 vial Continue traZODone HCL [Desyrel] 50 mg PO HS Pioglitazone [Actos] 45 mg PO DAILY Propranolol [Inderal] 20 mg PO BID Butalb/Acetaminophen/Caffeine [Fioricet 50-300-40 mg Capsule] 1 - 2 cap PO Q4HR Discontinued Prazosin [Minipress] 2 mg PO HS 30 Days #60 cap Zolpidem [Ambien] 5 mg PO HS PRN PRN Reason: Insomnia Cyclobenzaprine [Flexeril] 5 mg PO TID Discharge Medication List Pioglitazone [Actos] 45 mg PO DAILY 05/22/18 [History] traZODone HCL [Desyrel] 50 mg PO HS 05/22/18 [History] Butalb/Acetaminophen/Caffeine [Fioricet 50-300-40 mg Capsule] 1 - 2 cap PO Q4HR 12/06/18 [History] Propranolol [Inderal] 20 mg PO BID 12/06/18 [History] Aspirin EC [Ecotrin Low Dose] 81 mg PO DAILY #1 tablet. 12/10/18 [Rx] Cyclobenzaprine [Flexeril] 5 mg PO Q12HR PRN tab 12/10/18 [Rx] Melatonin 5 mg PO HS tablet 12/10/18 [Rx] Prazosin [Minipress] 3 mg PO HS cap 12/10/18 [Rx] risperiDONE [RisperDAL] 1 mg PO BID tab 12/10/18 [Rx] Cephalexin [Keflex] 500 mg PO Q8H cap 12/11/18 [Rx] INSULIN LISPRO (HumaLOG) [humaLOG] 0 unit SQ ACHS #1 vial 12/11/18 [Rx] Follow up Appointment(s)/Referral(s): Cinthia Thurston MD [STAFF PHYSICIAN] - 2 Weeks (after dc from [facility]) Guillermo Xiao MD [Primary Care Provider] - 3 Days (After discharge from [facility]) Amalia Aguilar MD [STAFF PHYSICIAN] - 1 Week (after dc from [facility]) Activity/Diet/Wound Care/Special Instructions: Discharged to mental health unit Discharge/Stand Alone Forms: [facility] Diary, [facility] Instructions Discharge Disposition: TRANSFER TO PSYCH HOSP/UNIT
--- NOTE | 2018-12-11 16:44 | P.PN ---
Subjective Progress Note Date: 12/11/18 This is a 43-year-old female admitted with pseudoseizures, subtitle neuritis headaches and multiple other medical issues. Evaluated by both neurology and psychiatry with recommendations noted. Persistent headache, neck ache. Pain management consulted, recommending cervical epidural steroid injection tomorrow as patient has already ate breakfast today. Vital signs stable 12/11/2018 Status post cervical steroid injection. Significant clinical improvement. Vital signs stable. Cleared by pain management and all other consults for discharge. Objective - Vital Signs Vital signs: Vital Signs Temp 97.9 F 12/11/18 10:20 Pulse 102 H 12/11/18 10:20 Resp 16 12/11/18 10:20 BP 117/66 12/11/18 10:20 Pulse Ox 96 12/11/18 10:20 Intake & Output 12/10/18 12/11/18 12/11/18 18:59 06:59 18:59 Intake Total 540 200 100 Output Total 1 Balance 540 199 100 Intake: IV 100 Oral 540 200 Output: Stool 1 Other: Voiding Method Toilet # Voids 2 1 3 - Exam PHYSICAL EXAM: VITAL SIGNS: [As above] GENERAL: Sitting up in bed, no acute distress, calm, cooperative HEENT: Conjunctivae normal. eyes normal. NECK: No JVD. No thyroid enlargement. No LNs CARDIOVASCULAR: S1, S2 regular.. No murmur RESPIRATION: Breath sounds diminished in the bases. No rhonchi or crackles. No bronchial breathing. ABDOMEN: Soft, nontender . No guarding. no masses palpable. Bowel sounds heard. LEGS: No edema. no swelling PSYCHIATRY: Alert and oriented X3, mood and affect normal. NERVOUS SYSTEM: Cranial N 2-12 grossly normal. Moves all 4 limbs. No focal deficits. Strength and sensation grossly intact.. Skin: no lesions, no rash - Labs CBC & Chem 7: 12/07/18 06:38 12/07/18 06:38 Labs: Abnormal Lab Results - Last 24 Hours (Table) 12/11/18 Range/Units 10:50 POC Glucose (mg/dL) 115 H (75-99) mg/dL Assessment and Plan Assessment: -Cervical radiculopathy -Cervical foraminal, spinal stenosis -Occipital neuralgia , occipital neuritis,status post cervical epidural steroid injection -Chronic intractable headache -Chronic intermittent asthma, stable -Diabetes mellitus -Gastroesophageal reflux disease -Hypertension -Hyperlipidemia -Seizure disorder -Sleep apnea, on CPAP/BiPAP -Anxiety -Bipolar, depression -Schizophrenia -PTSD Plan: Continue on current medication regime ,monitoring and symptomatic treatment. Status post steroid injection tomorrow with pain management services, tolerated procedure well. Significant clinical improvement. Medically Cleared for discharge to mental health unit-awaiting room assignment. The impression and plan of care has been dictated as directed. : I performed a history and examination of this patient, discussed the same with the dictator. I agree with the dictator's note ,documented as a scribe. Any additional findings or plans will be noted.
[2018-12-11] MEDS: LORazepam 2 MG/ML INJ IV PRN (19:30)
[2018-12-11] MEDS: traZODone HCL 50 MG TAB PO SCH (21:27)
[2018-12-11] MEDS: MELATONIN 5 MG TABLET PO SCH (21:27)
[2018-12-11] MEDS: PRAZOSIN 1 MG CAP PO SCH (21:27)
[2018-12-12] MEDS: KETOROLAC 30 MG/ML 1 ML VIAL IVP SCH ×3 (01:32→11:04)
[2018-12-12] MEDS: CEPHALEXIN 500 MG CAP PO SCH ×3 (05:58→21:53)
[2018-12-12] MEDS: PROPRANOLOL 20 MG TAB PO SCH ×2 (07:51→21:54)
[2018-12-12] MEDS: risperiDONE 1 MG TAB PO SCH ×2 (07:51→21:53)
[2018-12-12] MEDS: PIOGLITAZONE 45 MG TAB PO SCH (07:51)
[2018-12-12] MEDS: BUTALB/APAP/CAFF 50-325-40MG TAB PO PRN (07:54)
[2018-12-12] MEDS: CYCLOBENZAPRINE 5 MG TAB PO PRN (07:54)
[2018-12-12] MEDS: LORazepam 2 MG/ML INJ IV PRN (07:54)
[2018-12-12] MEDS: LACTATED RINGERS 1,000 ML IV SCH (11:07)
[2018-12-12] MEDS ORDERED: ACETAMINOPHEN TAB 325 MG TAB PO PRN (15:03)
[2018-12-12] MEDS ORDERED: ZOLPIDEM 5 MG TAB PO PRN (16:51)
[2018-12-12] MEDS: LORazepam 1 MG TAB PO PRN (19:19)
[2018-12-12] MEDS: PRAZOSIN 1 MG CAP PO SCH (21:52)
[2018-12-12] MEDS: traZODone HCL 50 MG TAB PO SCH (21:54)
[2018-12-12] MEDS: MELATONIN 5 MG TABLET PO SCH (22:10)
[2018-12-13] MEDS: CEPHALEXIN 500 MG CAP PO SCH ×2 (06:22→11:28)
[2018-12-13 07:47] LABS: Glucose,Whole Blood 103 mg/dL (75-99)
[2018-12-13] MEDS: risperiDONE 1 MG TAB PO SCH (08:14)
[2018-12-13] MEDS: PROPRANOLOL 20 MG TAB PO SCH (08:14)
[2018-12-13] MEDS: BUTALB/APAP/CAFF 50-325-40MG TAB PO PRN (08:14)
[2018-12-13] MEDS: CYCLOBENZAPRINE 5 MG TAB PO PRN (08:14)
[2018-12-13] MEDS: PIOGLITAZONE 45 MG TAB PO SCH (08:15)
[2018-12-13] MEDS: LORazepam 1 MG TAB PO PRN ×2 (08:21→16:46)
--- NOTE | 2018-12-13 11:11 | P.PN ---
Subjective Progress Note Date: 12/12/18 This is a 43-year-old female admitted with pseudoseizures, subtitle neuritis headaches and multiple other medical issues. Evaluated by both neurology and psychiatry with recommendations noted. Persistent headache, neck ache. Pain management consulted, recommending cervical epidural steroid injection tomorrow as patient has already ate breakfast today. Vital signs stable 12/11/2018 Status post cervical steroid injection. Significant clinical improvement. Vital signs stable. Cleared by pain management and all other consults for discharge. 12/12/2018 reports visual auditory hallucinations throughout the night. Reports last night, felt extremely hot, poured water over her head. Afebrile, no chills. Tachycardic. Significant improvement in pain, rating neck and headache at a "2 out of 10". Denies chest pain, palpitations or shortness of breath. Denies lightheadedness, dizziness or focal deficits. Objective - Vital Signs Vital signs: Vital Signs Temp 97.9 F 12/12/18 12:59 Pulse 112 H 12/12/18 12:59 Resp 18 12/12/18 12:59 BP 123/81 12/12/18 12:59 Pulse Ox 96 12/12/18 12:59 Intake & Output 12/11/18 12/12/18 12/12/18 18:59 06:59 18:59 Intake Total 100 Balance 100 Intake: IV 100 Other: Voiding Method Toilet # Voids 3 1 3 - Exam PHYSICAL EXAM: VITAL SIGNS: [As above] GENERAL: Sitting up in bed, no acute distress HEENT: Conjunctivae normal. eyes normal. NECK: No JVD. No thyroid enlargement. No LNs CARDIOVASCULAR: S1, S2 regular.. No murmur RESPIRATION: Breath sounds diminished in the bases. No rhonchi or crackles. No wheezing. ABDOMEN: Soft, nontender . No guarding. no masses palpable. Bowel sounds hear d. LEGS: No edema. no swelling PSYCHIATRY: Alert and oriented X3, mood and affect pleasant, cooperative. NERVOUS SYSTEM: Cranial N 2-12 grossly normal. Moves all 4 limbs. No focal deficits. Strength and sensation grossly intact.. Skin: no lesions, no rash - Labs CBC & Chem 7: 12/07/18 06:38 12/07/18 06:38 Assessment and Plan Assessment: -Cervical radiculopathy -Cervical foraminal, spinal stenosis -Occipital neuralgia , occipital neuritis,status post cervical epidural steroid injection -Chronic intractable headache -Chronic intermittent asthma, stable -Diabetes mellitus -Gastroesophageal reflux disease -Hypertension -Hyperlipidemia -Seizure disorder -Sleep apnea, on CPAP/BiPAP -Anxiety -Bipolar, depression -Schizophrenia -PTSD Plan: Continue on current medication regime ,monitoring and symptomatic treatment. Beta reyna increased. Continues to have visual and auditory hallucinations. Medically Cleared for discharge to mental health unit-awaiting accepting facility. The impression and plan of care has been dictated as directed. : I performed a history and examination of this patient, discussed the same with the dictator. I agree with the dictator's note ,documented as a scribe. Any additional findings or plans will be noted.
[2018-12-13 11:53] LABS: Glucose,Whole Blood 169 mg/dL (75-99)
[2018-12-13 12:24] VITALS: BP 118/74; PULSE 91; RESP 18; TEMP 98.6
--- NOTE | 2018-12-13 15:24 | P.PN ---
Subjective Progress Note Date: 12/13/18 This is a 43-year-old female admitted with pseudoseizures, subtitle neuritis headaches and multiple other medical issues. Evaluated by both neurology and psychiatry with recommendations noted. Persistent headache, neck ache. Pain management consulted, recommending cervical epidural steroid injection tomorrow as patient has already ate breakfast today. Vital signs stable 12/11/2018 Status post cervical steroid injection. Significant clinical improvement. Vital signs stable. Cleared by pain management and all other consults for discharge. 12/12/2018 reports visual auditory hallucinations throughout the night. Reports last night, felt extremely hot, poured water over her head. Afebrile, no chills. Tachycardic. Significant improvement in pain, rating neck and headache at a "2 out of 10". Denies chest pain, palpitations or shortness of breath. Denies lightheadedness, dizziness or focal deficits. 12/13/2018 patient has been accepted by [facility], bed pending.continues to report visual/auditory hallucinations accompanied by extreme heat,anxiety.Beta reyna increased, heart rate currently controlled. VSS.neck ache/headache significantly improved.denies chest pain, palpitations or shortness of breath. Objective - Vital Signs Vital signs: Vital Signs Temp 98.0 F 12/13/18 04:45 Pulse 87 12/13/18 04:45 Resp 14 12/13/18 04:45 BP 106/70 12/13/18 04:45 Pulse Ox 95 12/13/18 04:45 Intake & Output 12/12/18 12/13/18 12/13/18 18:59 06:59 18:59 Other: Voiding Method Toilet # Voids 2 1 2 - Exam PHYSICAL EXAM: VITAL SIGNS: [As above] GENERAL: Sitting up in bed, no acute distress HEENT: Conjunctivae normal. eyes normal. NECK: No JVD. No thyroid enlargement. No LNs CARDIOVASCULAR: S1, S2 regular.No murmur RESPIRATION: Breath sounds diminished in the bases. No rhonchi or crackles. No wheezing. ABDOMEN: Soft, nontender . No guarding. no masses palpable. Bowel sounds heard. LEGS: No edema. no swelling PSYCHIATRY: Alert and oriented X3, mood and affect pleasant, cooperative. NERVOUS SYSTEM: Cranial N 2-12 grossly normal. Moves all 4 limbs. No focal deficits. Strength and sensation grossly intact. Skin: no lesions, no rash - Labs CBC & Chem 7: 12/07/18 06:38 12/07/18 06:38 Labs: Abnormal Lab Results - Last 24 Hours (Table) 12/13/18 Range/Units 07:33 POC Glucose (mg/dL) 103 H (75-99) mg/dL Assessment and Plan Assessment: -Cervical radiculopathy -Cervical foraminal, spinal stenosis -Occipital neuralgia , occipital neuritis,status post cervical epidural steroid injection -Chronic intractable headache -Chronic intermittent asthma, stable -Diabetes mellitus -Gastroesophageal reflux disease -Hypertension -Hyperlipidemia -Seizure disorder -Sleep apnea, on CPAP/BiPAP -Anxiety -Bipolar, depression -Schizophrenia -PTSD Plan: Continue on current medication regime ,monitoring and symptomatic treatment. Medically Cleared for discharge to mental health unit-[facility] bed pending. The impression and plan of care has been dictated as directed. : I performed a history and examination of this patient, discussed the same with the dictator. I agree with the dictator's note ,documented as a scribe. Any additional findings or plans will be noted.
[2018-12-13] MEDS ORDERED: PROPRANOLOL 40 MG TAB PO SCH (21:00)
== END 2018-12-13 17:50 | DRG 74 ==
LOC: EC 12:56 → 3SCARD 13:24 → 4MS4W 12-08 16:10 → OBSVTOIN 12-09 13:11
PROVIDERS: ADMIT Family Medicine; ATTEND Family Medicine
PROC: 3E0R33Z Introduction of Anti-inflammatory into Spinal Canal, Percutaneous Approach (ICD-10-PCS; principal; 2018-12-09)
DX: M54.12 Radiculopathy, cervical region (principal); M54.81 Occipital neuralgia; M48.02 Spinal stenosis, cervical region; M79.7 Fibromyalgia; Q05.9 Spina bifida, unspecified; K21.9 Gastro-esophageal reflux disease without esophagitis; J45.20 Mild intermittent asthma, uncomplicated; I25.2 Old myocardial infarction; I10 Essential (primary) hypertension; G47.30 Sleep apnea, unspecified; G43.909 Migraine, unspecified, not intractable, without status migrainosus; E11.40 Type 2 diabetes mellitus with diabetic neuropathy, unspecified; E78.5 Hyperlipidemia, unspecified; F20.9 Schizophrenia, unspecified; F43.10 Post-traumatic stress disorder, unspecified; F44.5 Conversion disorder with seizures or convulsions; Z79.84 Long term (current) use of oral hypoglycemic drugs; Z79.899 Other long term (current) drug therapy; Z83.3 Family history of diabetes mellitus; Z90.710 Acquired absence of both cervix and uterus; Z88.3 Allergy status to other anti-infective agents; Z88.0 Allergy status to penicillin; Z91.013 Allergy to seafood; Z88.8 Allergy status to other drugs, medicaments and biological substances; Z91.018 Allergy to other foods
CPT/HCPCS: 62321; 70551; 70552; 72141; 80053; 80061; 81003; 84443; 85025; 93306; 93880; 95816; 99285

== ENCOUNTER 2018-12-13 16:59 | Inpatient (IN) | payer BC, MEDICARE ==
[2018-12-13] MEDS ORDERED: ZIPRASIDONE 20 MG VIAL IM PRN (18:16)
[2018-12-13] MEDS ORDERED: MAGNESIUM HYDROXIDE 2,400 MG/10 ML CUP PO PRN (18:16)
[2018-12-13] MEDS ORDERED: MAG HYDROX/AL HYDROX/SIMETH 30 ML CUP PO PRN (18:16)
[2018-12-13 20:06] LABS: Glucose,Whole Blood 127 mg/dL (75-99)
[2018-12-13] MEDS ORDERED: CEPHALEXIN 500 MG CAP PO ONE (21:00)
[2018-12-13] MEDS ORDERED: traZODone HCL 50 MG TAB PO SCH (21:00)
[2018-12-13] MEDS ORDERED: PROPRANOLOL 20 MG TAB PO SCH (21:00)
[2018-12-13] MEDS: MELATONIN 5 MG TABLET PO SCH (21:08)
[2018-12-13] MEDS: PRAZOSIN 1 MG CAP PO SCH (21:09)
[2018-12-13] MEDS: risperiDONE 1 MG TAB PO SCH (21:09)
[2018-12-13] MEDS: BUTALB/APAP/CAFF 50-325-40MG TAB PO PRN (21:11)
[2018-12-13] MEDS: INSULIN ASPART (NovoLOG) 100 UNIT/ML VIAL SQ SCH (21:16)
[2018-12-14] MEDS: BUTALB/APAP/CAFF 50-325-40MG TAB PO PRN ×3 (06:54→20:49)
[2018-12-14] MEDS: CYCLOBENZAPRINE 5 MG TAB PO PRN ×2 (07:03→20:49)
[2018-12-14 07:50] LABS: Glucose,Whole Blood 151 mg/dL (75-99)
[2018-12-14] MEDS: INSULIN ASPART (NovoLOG) 100 UNIT/ML VIAL SQ SCH ×4 (08:19→20:28)
[2018-12-14] MEDS: PIOGLITAZONE 45 MG TAB PO SCH (08:45)
[2018-12-14] MEDS: risperiDONE 1 MG TAB PO SCH (08:46)
[2018-12-14] MEDS: PROPRANOLOL 10 MG TAB PO SCH ×2 (08:47→21:53)
[2018-12-14] MEDS: ASPIRIN 81 MG PO SCH (08:47)
[2018-12-14] MEDS: ACETAMINOPHEN TAB 325 MG TAB PO PRN ×2 (10:40→22:19)
[2018-12-14] MEDS: clonazePAM 0.5 MG TAB PO SCH ×2 (12:28→20:47)
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
[2018-12-14 12:37] LABS: Glucose,Whole Blood 103 mg/dL (75-99)
[2018-12-14 17:26] LABS: Glucose,Whole Blood 150 mg/dL (75-99)
[2018-12-14] MEDS ORDERED: diphenhydrAMINE 50 MG CAP PO STA (19:12)
[2018-12-14 20:14] LABS: Glucose,Whole Blood 213 mg/dL (75-99)
[2018-12-14 20:20] LABS: Glucose,Whole Blood 180 mg/dL (75-99)
[2018-12-14] MEDS: PRAZOSIN 1 MG CAP PO SCH (20:46)
[2018-12-14] MEDS: MELATONIN 5 MG TABLET PO SCH (20:46)
[2018-12-14] MEDS: risperiDONE 2 MG TAB PO SCH (20:46)
[2018-12-14] MEDS ORDERED: traZODone HCL 100 MG TAB PO SCH (21:00)
[2018-12-15 07:46] LABS: Glucose,Whole Blood 177 mg/dL (75-99)
[2018-12-15] MEDS: risperiDONE 2 MG TAB PO SCH ×2 (08:41→21:03)
[2018-12-15] MEDS: ASPIRIN 81 MG PO SCH (08:41)
[2018-12-15] MEDS: PROPRANOLOL 10 MG TAB PO SCH ×2 (08:41→21:01)
[2018-12-15] MEDS: INSULIN ASPART (NovoLOG) 100 UNIT/ML VIAL SQ SCH ×4 (08:41→20:43)
[2018-12-15] MEDS: clonazePAM 0.5 MG TAB PO SCH (08:41)
[2018-12-15] MEDS: PIOGLITAZONE 45 MG TAB PO SCH (08:43)
[2018-12-15] MEDS: BUTALB/APAP/CAFF 50-325-40MG TAB PO PRN ×2 (10:27→20:59)
[2018-12-15] MEDS: CYCLOBENZAPRINE 5 MG TAB PO PRN (10:27)
--- NOTE | 2018-12-15 12:04 | P.PN ---
Progress Note - Text Progress Note Date: 12/15/18 Interval History: Patient was seen wandering the hallways after group and was agreeable to copywriter. Patient states that her visual and auditory hallucinations have improved mildly at this time and was happy about this however patient states that her sleep still remains to be difficult at night to initiate sleep and maintain it. She states that she is having nightmares and also reports having anxiety. She claimed that a ice pack help her with her pain on her neck and also in her legs and was requesting them. She states that she is attempting to go to groups more and interact with other people which is helping her. At this time patient denies any suicidal or homical ideations, intent or plan. Patient admits to ongoing auditory, visual hallucinations and denies any paranoia or delusions. Patient denies any side effects from the medications and has been compliant with meds. Mental Status Exam: General Appearance: Patient appears to be older than stated age is alert, pleasant, and cooperative. Patient is overweight and wearing street clothing. Behavior: Patient is calmly seated without any agitated behavior. Speech: Patient's speech is fluent and nonpressured. Mood/Affect: Mood is improving, affect is congruent and constricted. Patient appears to be anxious. Suicidality/Homicidality: Patient denies having any suicidal or homicidal ideation intent or plan. Perceptions: Patient denies any auditory or visual hallucinations. Though content/process: There is no evidence of any delusional thought content and thought process is linear and goal-directed. Memory and concentration: AOX3, grossly intact for the purposes of this session Judgment and insight: fair, improving mildly Assessment Schizoaffective disorder, depressive type History of PTSD Cannabis use disorder Plan: -Patient continues to meet criteria for inpatient psychiatric admission for symptom stabilization and safety. Patient has signed adult voluntary form and medication consent was placed in patient's chart. -Medications: We'll continue patient on Risperdal 2 mg twice a day for psychosis. Will increase trazodone to 200 mg daily at bedtime for mood and insomnia. Will increase Klonopin to 1 mg twice a day for anxiety. Patient to continue on prazosin 3 mg daily at bedtime for nightmares. -When necessary Ativan for agitation/aggression. -NRT - not needed as patient does not smoke. -SW on board for discharge planning.
[2018-12-15 12:28] LABS: Glucose,Whole Blood 94 mg/dL (75-99)
[2018-12-15 17:39] LABS: Glucose,Whole Blood 135 mg/dL (75-99)
[2018-12-15 20:42] LABS: Glucose,Whole Blood 190 mg/dL (75-99)
[2018-12-15] MEDS: clonazePAM 1 MG TAB PO SCH (21:02)
[2018-12-15] MEDS: PRAZOSIN 1 MG CAP PO SCH (21:02)
[2018-12-15] MEDS: traZODone HCL 100 MG TAB PO SCH (21:03)
[2018-12-15] MEDS: MELATONIN 5 MG TABLET PO SCH (21:03)
[2018-12-16 07:45] LABS: Glucose,Whole Blood 160 mg/dL (75-99)
[2018-12-16] MEDS: INSULIN ASPART (NovoLOG) 100 UNIT/ML VIAL SQ SCH ×4 (08:33→20:38)
[2018-12-16] MEDS: PROPRANOLOL 10 MG TAB PO SCH ×2 (08:33→20:43)
[2018-12-16] MEDS: clonazePAM 1 MG TAB PO SCH (08:33)
[2018-12-16] MEDS: ASPIRIN 81 MG PO SCH (08:34)
[2018-12-16] MEDS: PIOGLITAZONE 45 MG TAB PO SCH (08:34)
[2018-12-16] MEDS: risperiDONE 2 MG TAB PO SCH ×2 (08:35→20:41)
[2018-12-16] MEDS: CYCLOBENZAPRINE 5 MG TAB PO PRN ×2 (10:19→21:22)
[2018-12-16] MEDS: BUTALB/APAP/CAFF 50-325-40MG TAB PO PRN ×2 (10:19→21:22)
[2018-12-16] MEDS ORDERED: LORazepam 1 MG TAB PO PRN (10:34)
--- NOTE | 2018-12-16 10:42 | P.PN ---
Progress Note - Text Progress Note Date: 12/16/18 Interval History: Patient was seen wandering the hallways after group and was agreeable to medical underwriter. Patient appeared to be anxious and was fidgeting with her hands walking around. Patient states that Klonopin which she started yesterday was not helping her and even stated that "it may be making it worse". When asked what helps with her anxiety patient states that Ativan was helping when she was on the medical floors. Patient was preoccupied with anxiety during the interview. Patient states that her visual and auditory hallucinations are continuing to improve, she also mentioned that she slept much better last night and is okay with the dose of trazodone. She states that she is attempting to go to groups more and interact with other people which is helping her. At this time patient denies any suicidal or homical ideations, intent or plan. Patient admits to ongoing auditory which are improving, visual hallucinations and denies any paranoia or delusions. Patient denies any side effects from the medications and has been compliant with meds. Mental Status Exam: General Appearance: Patient appears to be older than stated age is alert, pleasant, and cooperative. Patient is overweight and wearing street clothing. Behavior: Patient is seated without any agitated behavior. Patient appears anxious. Speech: Patient's speech is fluent and nonpressured. Mood/Affect: Mood is improving, affect is congruent and constricted. Patient appears to be anxious. Suicidality/Homicidality: Patient denies having any suicidal or homicidal ideation intent or plan. Perceptions: Patient denies any auditory or visual hallucinations. Though content/process: There is no evidence of any delusional thought content and thought process is linear and goal-directed. Patient is preoccupied with her anxiety. Memory and concentration: AOX3, grossly intact for the purposes of this session Judgment and insight: fair, improving mildly Assessment Schizoaffective disorder, depressive type History of PTSD Cannabis use disorder Plan: -Patient continues to meet criteria for inpatient psychiatric admission for symptom stabilization and safety. Patient has signed adult voluntary form and medication consent was placed in patient's chart. -Medications: We'll continue patient on Risperdal 2 mg twice a day for psychosis. Will continue with trazodone to 200 mg daily at bedtime for mood and insomnia. Will discontinue Klonopin and replaced with Ativan 1 mg twice a day scheduled for anxiety. Continue on prazosin 3 mg daily at bedtime for nightmares. -Vistaril 25 mg every 6 hours when necessary for anxiety. -When necessary Ativan for agitation/aggression. -NRT - not needed as patient does not smoke. -SW on board for discharge planning.
[2018-12-16] MEDS: LORazepam 1 MG TAB PO SCH ×2 (10:44→20:41)
[2018-12-16] MEDS: SERTRALINE 50 MG TAB PO SCH (10:44)
[2018-12-16 12:33] LABS: Glucose,Whole Blood 113 mg/dL (75-99)
[2018-12-16 17:34] LABS: Glucose,Whole Blood 103 mg/dL (75-99)
[2018-12-16] MEDS: hydrOXYzine PAMOATE 25 MG CAP PO PRN (19:04)
[2018-12-16 20:08] LABS: Glucose,Whole Blood 156 mg/dL (75-99)
[2018-12-16] MEDS: PRAZOSIN 1 MG CAP PO SCH (20:41)
[2018-12-16] MEDS: MELATONIN 5 MG TABLET PO SCH (20:42)
[2018-12-16] MEDS: traZODone HCL 100 MG TAB PO SCH (20:42)
[2018-12-17 07:58] LABS: Glucose,Whole Blood 149 mg/dL (75-99)
[2018-12-17] MEDS: INSULIN ASPART (NovoLOG) 100 UNIT/ML VIAL SQ SCH ×4 (08:17→20:35)
[2018-12-17] MEDS: BUTALB/APAP/CAFF 50-325-40MG TAB PO PRN ×2 (08:39→20:38)
[2018-12-17] MEDS: LORazepam 1 MG TAB PO SCH ×3 (08:40→20:38)
[2018-12-17] MEDS: SERTRALINE 50 MG TAB PO SCH (08:40)
[2018-12-17] MEDS: PROPRANOLOL 10 MG TAB PO SCH ×2 (08:40→20:39)
[2018-12-17] MEDS: risperiDONE 2 MG TAB PO SCH ×2 (08:40→20:39)
[2018-12-17] MEDS: ASPIRIN 81 MG PO SCH (08:40)
[2018-12-17] MEDS: PIOGLITAZONE 45 MG TAB PO SCH (08:40)
[2018-12-17] MEDS: CYCLOBENZAPRINE 5 MG TAB PO PRN ×2 (08:40→20:38)
--- NOTE | 2018-12-17 09:45 | P.PN ---
Progress Note - Text Progress Note Date: 12/17/18 Interval History: Patient was seen sitting in on group and was agreeable to speak to contract technical writer'desmond weston. Patient appeared to much calmer and appeared to be less anxious however continues to have fidgeting motions with her feet and hands during the interview. Patient states that the Ativan is helping her stay, and with the anxiety and she was appreciative of the switch. She also states that she is taking the hydroxyzine as much as she can between which is helping. She also claims that her mood has improved and she is having less visual and auditory hallucinations. Patient states that she slept much better last night and is okay with the dose of trazodone. She states that she is attempting to go to groups more and interact with other people which is helping her. At this time patient denies any suicidal or homical ideations, intent or plan. Patient admits to ongoing auditory which are improving, visual hallucinations and denies any paranoia or delusions. Patient denies any side effects from the medications and has been compliant with meds. Mental Status Exam: General Appearance: Patient appears to be older than stated age is alert, pleasant, and cooperative. Patient is overweight and wearing street clothing. Behavior: Patient is seated without any agitated behavior. Patient appears to have improved anxiety. Speech: Patient's speech is fluent and nonpressured. Mood/Affect: Mood is improving, affect is congruent and constricted. Patient appears to be less anxious. Suicidality/Homicidality: Patient denies having any suicidal or homicidal ideation intent or plan. Perceptions: Patient denies any auditory or visual hallucinations. Though content/process: There is no evidence of any delusional thought content and thought process is linear and goal-directed. Memory and concentration: AOX3, grossly intact for the purposes of this session Judgment and insight: fair, improving mildly Assessment Schizoaffective disorder, depressive type History of PTSD Cannabis use disorder Plan: -Patient continues to meet criteria for inpatient psychiatric admission for symp perlita stabilization and safety. Patient has signed adult voluntary form and medication consent was placed in patient's chart. -Medications: We'll continue patient on Risperdal 2 mg twice a day for psych osis. Will continue with trazodone to 200 mg daily at bedtime for mood and insomnia. We will increase Ativan 1 mg to 3 times a day scheduled for anxiety. Continue on prazosin 3 mg daily at bedtime for nightmares. Increase Zoloft to 100 mg daily for mood/anxiety. -Vistaril 25 mg every 6 hours when necessary for anxiety. -When necessary Ativan for agitation/aggression. -NRT - not needed as patient does not smoke. -SW on board for discharge planning.
[2018-12-17] MEDS: hydrOXYzine PAMOATE 25 MG CAP PO PRN ×2 (10:41→17:40)
[2018-12-17 12:34] LABS: Glucose,Whole Blood 106 mg/dL (75-99)
[2018-12-17 17:44] LABS: Glucose,Whole Blood 108 mg/dL (75-99)
[2018-12-17 19:53] LABS: Glucose,Whole Blood 150 mg/dL (75-99)
[2018-12-17] MEDS: MELATONIN 5 MG TABLET PO SCH (20:38)
[2018-12-17] MEDS: traZODone HCL 100 MG TAB PO SCH (20:38)
[2018-12-17] MEDS: PRAZOSIN 1 MG CAP PO SCH (20:39)
[2018-12-18 07:43] LABS: Glucose,Whole Blood 155 mg/dL (75-99)
[2018-12-18] MEDS: INSULIN ASPART (NovoLOG) 100 UNIT/ML VIAL SQ SCH ×4 (08:03→20:10)
[2018-12-18] MEDS: SERTRALINE 100 MG TAB PO SCH (08:27)
[2018-12-18] MEDS: risperiDONE 2 MG TAB PO SCH (08:27)
[2018-12-18] MEDS: PROPRANOLOL 10 MG TAB PO SCH ×2 (08:28→21:23)
[2018-12-18] MEDS: PIOGLITAZONE 45 MG TAB PO SCH (08:28)
[2018-12-18] MEDS: LORazepam 1 MG TAB PO SCH ×3 (08:28→20:11)
[2018-12-18] MEDS: ASPIRIN 81 MG PO SCH (08:28)
[2018-12-18] MEDS: CYCLOBENZAPRINE 5 MG TAB PO PRN ×2 (08:32→21:26)
[2018-12-18] MEDS: BUTALB/APAP/CAFF 50-325-40MG TAB PO PRN ×2 (08:32→21:24)
[2018-12-18] MEDS ORDERED: hydrOXYzine PAMOATE 25 MG CAP PO PRN (09:04)
[2018-12-18] MEDS: hydrOXYzine PAMOATE 25 MG CAP PO SCH ×3 (09:14→23:50)
--- NOTE | 2018-12-18 10:23 | P.PN ---
Progress Note - Text Progress Note Date: 12/18/18 Interval History: Patient was seen this morning after she taken her a.m. medications and was agr eeable to speak to insurance writer's office. Patient appeared to much calmer and appeared to be mildly less anxious however continues to have fidgeting motions with her feet and hands. Patient can use to be preoccupied with anxiety and medications and states "I'm not even half way there" however patient was directable. She also states that she is taking the hydroxyzine as much as she can between which is helping and was requesting to have that dose increased. She also claims that her mood is continuing to improve and she is having less visual and auditory hallucinations. Patient states that she slept well last night and is okay with the dose of trazodone. She claims that groups have been going well for her and is continuing to participate however claims that she does feel anxious during them. At this time patient denies any suicidal or homical ideations, intent or plan. Patient admits to ongoing auditory which are improving, visual hallucinations and denies any paranoia or delusions. Patient denies any side effects from the medications and has been compliant with meds. Mental Status Exam: General Appearance: Patient appears to be older than stated age is alert, pleasant, and cooperative. Patient is overweight and wearing street clothing. Behavior: Patient is seated without any agitated behavior. Patient appears to have improved mildly with regards to anxiety. Speech: Patient's speech is fluent and nonpressured. Mood/Affect: Mood is improving, affect is congruent and constricted. Suicidality/Homicidality: Patient denies having any suicidal or homicidal ideation intent or plan. Perceptions: Patient denies any auditory or visual hallucinations. Though content/process: There is no evidence of any delusional thought content and thought process is linear and goal-directed. Memory and concentration: AOX3, grossly intact for the purposes of this session Judgment and insight: fair, improving mildly Assessment Schizoaffective disorder, depressive type History of PTSD Cannabis use disorder Plan: -Patient continues to meet criteria for inpatient psychiatric admission for symptom stabilization and safety. Patient has signed adult voluntary form and medication consent was placed in patient's chart. -Medications: We'll increase Risperdal to 2 mg + 3mg a day for psychosis. Will continue with trazodone to 200 mg daily at bedtime for mood and insomnia. We continue with Ativan 1 mg to 3 times a day scheduled for anxiety. Continue on prazosin 3 mg daily at bedtime for nightmares. Continue with Zoloft to 100 mg daily for mood/anxiety. Vistaril increased to 50 mg every 8 hours when necessary for anxiety. -When necessary Ativan for agitation/aggression. -NRT - not needed as patient does not smoke. -SW on board for discharge planning.
[2018-12-18 12:38] LABS: Glucose,Whole Blood 92 mg/dL (75-99)
[2018-12-18 17:34] LABS: Glucose,Whole Blood 120 mg/dL (75-99)
[2018-12-18 19:53] LABS: Glucose,Whole Blood 123 mg/dL (75-99)
[2018-12-18] MEDS: MELATONIN 5 MG TABLET PO SCH (20:11)
[2018-12-18] MEDS: traZODone HCL 100 MG TAB PO SCH (20:11)
[2018-12-18] MEDS: PRAZOSIN 1 MG CAP PO SCH (20:11)
[2018-12-18] MEDS ORDERED: risperiDONE 1 MG TAB PO SCH (21:00)
[2018-12-19 07:38] LABS: Glucose,Whole Blood 149 mg/dL (75-99)
[2018-12-19] MEDS: PROPRANOLOL 10 MG TAB PO SCH ×2 (07:56→20:11)
[2018-12-19] MEDS: risperiDONE 2 MG TAB PO SCH (07:57)
[2018-12-19] MEDS: ASPIRIN 81 MG PO SCH (07:57)
[2018-12-19] MEDS: PIOGLITAZONE 45 MG TAB PO SCH (07:57)
[2018-12-19] MEDS: hydrOXYzine PAMOATE 25 MG CAP PO SCH ×3 (07:57→20:10)
[2018-12-19] MEDS: LORazepam 1 MG TAB PO SCH ×3 (07:57→20:08)
[2018-12-19] MEDS: SERTRALINE 100 MG TAB PO SCH (07:57)
[2018-12-19] MEDS: INSULIN ASPART (NovoLOG) 100 UNIT/ML VIAL SQ SCH ×4 (07:58→20:03)
[2018-12-19] MEDS: CYCLOBENZAPRINE 5 MG TAB PO PRN ×2 (08:31→20:13)
[2018-12-19] MEDS: BUTALB/APAP/CAFF 50-325-40MG TAB PO PRN ×2 (08:31→20:13)
--- NOTE | 2018-12-19 11:13 | P.PN ---
Progress Note - Text Progress Note Date: 12/19/18 Interval History: Patient was seen this morning while she was in group and was agreeable to speak to medical writer's office. Patient appeared to much calmer and less anxious. Patient continues to be preoccupied with her medications however did state that her anxiety is improving. She continues to fidget with her feet and hands however this is improving as well. patient was directable and cooperative however is demanding. S she reported poor sleep last night and stated that she had to be woken up to take her Vistaril at 12:00 which kept her awake. She also claims that her mood is continuing to improve and denies any visual and auditory hallucinations. She claims that groups have been going well for her and is continuing to participate in them. At this time patient denies any suicidal or homical ideations, intent or plan. Patient denies any paranoia or delusions. Patient denies any side effects from the medications and has been compliant with meds. Mental Status Exam: General Appearance: Patient appears to be older than stated age is alert, pleasant, and cooperative. Patient is overweight and wearing street clothing. Behavior: Patient is seated without any agitated behavior. Patient appears to have improved with regards to anxiety. Speech: Patient's speech is fluent and nonpressured. Mood/Affect: Mood is improving, affect is congruent and constricted. Suicidality/Homicidality: Patient denies having any suicidal or homicidal ideation intent or plan. Perceptions: Patient denies any auditory or visual hallucinations. Though content/process: There is no evidence of any delusional thought content and thought process is linear and goal-directed. Preoccupied with her medications. Memory and concentration: AOX3, grossly intact for the purposes of this session Judgment and insight: fair, improving mildly Assessment Schizoaffective disorder, depressive type History of PTSD Cannabis use disorder Plan: -Patient continues to meet criteria for inpatient psychiatric admission for symptom stabilization and safety. Patient has signed adult voluntary form and medication consent was placed in patient's chart. -Medications: We'll increase Risperdal to 2 mg + 3mg a day for psychosis. Will continue with trazodone to 200 mg daily at bedtime for mood and insomnia. Cont inue with Ativan 1 mg to 3 times a day scheduled for anxiety. Continue on prazosin 3 mg daily at bedtime for nightmares. Increased Zoloft to 150 mg daily for mood/anxiety. Vistaril 50 mg every 8 hours when necessary for anxiety. -When necessary Ativan for agitation/aggression. -NRT - not needed as patient does not smoke. -SW on board for discharge planning.
[2018-12-19 12:39] LABS: Glucose,Whole Blood 91 mg/dL (75-99)
[2018-12-19 17:46] LABS: Glucose,Whole Blood 88 mg/dL (75-99)
[2018-12-19 20:02] LABS: Glucose,Whole Blood 207 mg/dL (75-99)
[2018-12-19] MEDS: MELATONIN 5 MG TABLET PO SCH (20:08)
[2018-12-19] MEDS: PRAZOSIN 1 MG CAP PO SCH (20:09)
[2018-12-19] MEDS ORDERED: risperiDONE 1 MG TAB PO SCH (22:00)
[2018-12-19] MEDS ORDERED: traZODone HCL 100 MG TAB PO SCH (22:00)
[2018-12-20] MEDS: INSULIN ASPART (NovoLOG) 100 UNIT/ML VIAL SQ SCH ×4 (07:39→20:30)
[2018-12-20 07:50] LABS: Glucose,Whole Blood 138 mg/dL (75-99)
[2018-12-20] MEDS: hydrOXYzine PAMOATE 25 MG CAP PO SCH ×3 (08:19→22:12)
[2018-12-20] MEDS: risperiDONE 2 MG TAB PO SCH (08:19)
[2018-12-20] MEDS: SERTRALINE 50 MG TAB PO SCH (08:19)
[2018-12-20] MEDS: BUTALB/APAP/CAFF 50-325-40MG TAB PO PRN (08:19)
[2018-12-20] MEDS: CYCLOBENZAPRINE 5 MG TAB PO PRN (08:20)
[2018-12-20] MEDS: ASPIRIN 81 MG PO SCH (08:20)
[2018-12-20] MEDS: PIOGLITAZONE 45 MG TAB PO SCH (08:20)
[2018-12-20] MEDS: PROPRANOLOL 10 MG TAB PO SCH ×2 (08:20→22:12)
[2018-12-20] MEDS: LORazepam 1 MG TAB PO SCH ×3 (08:21→22:12)
--- NOTE | 2018-12-20 10:24 | P.PN ---
Progress Note - Text Progress Note Date: 12/20/18 Interval History: Patient was seen this morning while she was in group and was agreeable to speak to typewriter repairer's office. Patient appeared to calmer and less anxious however continues to be preoccupied with her medications and her symptoms. Patient states that although her anxiety is under better control she claims that last night she heard her who is currently in longterm in [place] stay "no seth" to her and she got scared and started looking around the room for him. She also stated that she did feel more anxiety before going to sleep and claims that she was not able to sleep well last night. She also claims that she did have a nightmare yesterday which resulted disturbed her. She continues to fidget with her feet and hands during the interview. patient was directable and cooperative however is demanding. She states that she is going to groups which she find this helpful and also spoke with her mother who was asking about when she is going to be able to go home. She claims that groups have been going well for her and is continuing to participate in them. At this time patient denies any suicidal or homical ideations, intent or plan. Patient denies any paranoia or delusions. Patient denies any side effects from the medications and has been compliant with meds. Mental Status Exam: General Appearance: Patient appears to be older than stated age is alert, pleasant, and cooperative. Patient is overweight and wearing street clothing. Behavior: Patient is seated without any agitated behavior. Patient appears to have improved with regards to anxiety. Speech: Patient's speech is fluent and nonpressured. Mood/Affect: Mood is improving, affect is congruent and constricted. Suicidality/Homicidality: Patient denies having any suicidal or homicidal ideation intent or plan. Perceptions: Patient denies any auditory or visual hallucinations. Though content/process: There is no evidence of any delusional thought content and thought process is linear and goal-directed. Preoccupied with her medications and continues to be demanding. Memory and concentration: AOX3, grossly intact for the purposes of this session Judgment and insight: fair, improving mildly Assessment Schizoaffective disorder, depressive type History of PTSD Cannabis use disorder Plan: -Patient continues to meet criteria for inpatient psychiatric admission for symptom stabilization and safety. Patient has signed adult voluntary form and medication consent was placed in patient's chart. -Medications: We'll increase Risperdal to 2 mg + 4mg a day for psychosis. Will increase trazodone to 250 mg daily at bedtime for mood and insomnia. Continue with Ativan 1 mg to 3 times a day scheduled for anxiety. Will increase prazosin 4 mg daily at bedtime for nightmares. Continue with Zoloft to 150 mg daily for mood/anxiety. Vistaril 50 mg every 8 hours when necessary for anxiety. Patient is to take all her nighttime medications at the same time. -When necessary Ativan for agitation/aggression. -NRT - not needed as patient does not smoke. -SW on board for discharge planning. Likely discharge early next week.
[2018-12-20 12:32] LABS: Glucose,Whole Blood 79 mg/dL (75-99)
[2018-12-20 17:37] LABS: Glucose,Whole Blood 85 mg/dL (75-99)
[2018-12-20 19:48] LABS: Glucose,Whole Blood 221 mg/dL (75-99)
[2018-12-20] MEDS ORDERED: risperiDONE 2 MG TAB PO SCH (21:00)
[2018-12-20] MEDS ORDERED: traZODone HCL 100 MG TAB PO SCH (21:00)
[2018-12-20] MEDS: MELATONIN 5 MG TABLET PO SCH (22:11)
[2018-12-20] MEDS: PRAZOSIN 1 MG CAP PO SCH (22:11)
[2018-12-21 07:48] LABS: Glucose,Whole Blood 140 mg/dL (75-99)
[2018-12-21] MEDS: INSULIN ASPART (NovoLOG) 100 UNIT/ML VIAL SQ SCH ×4 (07:59→19:52)
[2018-12-21] MEDS: PROPRANOLOL 10 MG TAB PO SCH ×2 (08:29→21:09)
[2018-12-21] MEDS: SERTRALINE 50 MG TAB PO SCH (08:30)
[2018-12-21] MEDS: BUTALB/APAP/CAFF 50-325-40MG TAB PO PRN ×2 (08:30→20:48)
[2018-12-21] MEDS: risperiDONE 2 MG TAB PO SCH (08:30)
[2018-12-21] MEDS: PIOGLITAZONE 45 MG TAB PO SCH (08:30)
[2018-12-21] MEDS: hydrOXYzine PAMOATE 25 MG CAP PO SCH ×3 (08:30→20:47)
[2018-12-21] MEDS: ASPIRIN 81 MG PO SCH (08:30)
[2018-12-21] MEDS: LORazepam 1 MG TAB PO SCH ×3 (08:30→20:47)
[2018-12-21] MEDS ORDERED: risperiDONE 1 MG TAB PO STA (10:12)
--- NOTE | 2018-12-21 10:19 | P.PN ---
Progress Note - Text Progress Note Date: 12/21/18 Interval History: Patient was seen this morning while she was in group and was agreeable to speak to video games storywriter's office. Patient appeared to be calmer and less anxious however continues to be preoccupied with her medications and her symptoms. Patient states that her anxiety is better controlled however she continues to fidget with her hands when she speaks to video games storywriter. It was noted by several staff members that patient was not fidgeting and does not appear anxious throughout the day. She also stated that she did feel more anxiety before going to sleep and claims that she was not able to sleep well last night. She claims that she had nightmares last night again. patient was directable and cooperative however is demanding. She states that she is going to groups which she find is helpful and mentions trying to use her coping skills to deal with her anxiety. I explained to patient that at this time we will not increase her Ativan or adding another benzodiazepine and patient verbally understood. At this time patient denies any suicidal or homical ideations, intent or plan. Patient denies any paranoia or delusions. Patient denies any side effects from the medications and has been compliant with meds. Mental Status Exam: General Appearance: Patient appears to be older than stated age is alert, pleasant, and cooperative. Patient is overweight and wearing street clothing. Behavior: Patient is seated without any agitated behavior. Patient appears to have improved moderately with regards to anxiety. Speech: Patient's speech is fluent and nonpressured. Mood/Affect: Mood is improving, affect is congruent and constricted. Suicidality/Homicidality: Patient denies having any suicidal or homicidal ideation intent or plan. Perceptions: Patient denies any auditory or visual hallucinations. Though content/process: There is no evidence of any delusional thought content and thought process is linear and goal-directed. Preoccupied with her medications, anxiety and continues to be demanding. Memory and concentration: AOX3, grossly intact for the purposes of this session Judgment and insight: fair, improving mildly Assessment Schizoaffective disorder, depressive type History of PTSD Cannabis use disorder Plan: -Patient continues to meet criteria for inpatient psychiatric admission for symptom stabilization and safety. Patient has signed adult voluntary form and medication consent was placed in patient's chart. -Medications: Changed Risperdal to 3 mg twice a day for psychosis. Will increase trazodone to 300 mg daily at bedtime for mood and insomnia. Continue with Ativan 1 mg to 3 times a day scheduled for anxiety. Will continue with prazosin 4 mg daily at bedtime for nightmares. Increase Zoloft to 200 mg daily for mood/anxiety. Vistaril 50 mg every 8 hours when necessary for anxiety. Patient is to take all her nighttime medications at the same time. Discussed with patient that patient will not have an increase in her Ativan or the addition of benzodiazepines throughout the weekend. -When necessary Ativan for agitation/aggression. -NRT - not needed as patient does not smoke. -SW on board for discharge planning. Likely discharge early next week.
[2018-12-21 12:27] LABS: Glucose,Whole Blood 100 mg/dL (75-99)
[2018-12-21] MEDS: CYCLOBENZAPRINE 5 MG TAB PO PRN (15:12)
[2018-12-21 17:31] LABS: Glucose,Whole Blood 117 mg/dL (75-99)
[2018-12-21 19:52] LABS: Glucose,Whole Blood 181 mg/dL (75-99)
[2018-12-21] MEDS: risperiDONE 1 MG TAB PO SCH (20:47)
[2018-12-21] MEDS: PRAZOSIN 1 MG CAP PO SCH (20:47)
[2018-12-21] MEDS: traZODone HCL 100 MG TAB PO SCH (20:48)
[2018-12-21] MEDS: MELATONIN 5 MG TABLET PO SCH (20:48)
[2018-12-22 07:43] LABS: Glucose,Whole Blood 140 mg/dL (75-99)
[2018-12-22] MEDS: hydrOXYzine PAMOATE 25 MG CAP PO SCH ×3 (08:28→20:18)
[2018-12-22] MEDS: SERTRALINE 100 MG TAB PO SCH (08:28)
[2018-12-22] MEDS: risperiDONE 1 MG TAB PO SCH ×2 (08:28→20:19)
[2018-12-22] MEDS: ASPIRIN 81 MG PO SCH (08:28)
[2018-12-22] MEDS: PROPRANOLOL 10 MG TAB PO SCH ×2 (08:29→20:19)
[2018-12-22] MEDS: PIOGLITAZONE 45 MG TAB PO SCH (08:29)
[2018-12-22] MEDS: LORazepam 1 MG TAB PO SCH ×3 (08:29→20:19)
[2018-12-22] MEDS: CYCLOBENZAPRINE 5 MG TAB PO PRN ×2 (08:30→20:57)
[2018-12-22] MEDS: BUTALB/APAP/CAFF 50-325-40MG TAB PO PRN ×2 (08:31→20:19)
[2018-12-22] MEDS: INSULIN ASPART (NovoLOG) 100 UNIT/ML VIAL SQ SCH ×4 (08:33→20:19)
[2018-12-22 12:35] LABS: Glucose,Whole Blood 90 mg/dL (75-99)
[2018-12-22 17:35] LABS: Glucose,Whole Blood 87 mg/dL (75-99)
--- NOTE | 2018-12-22 17:56 | P.PN ---
Progress Note - Text Progress Note Date: 12/22/18 IDENTIFICATION DATA: Patient is a 43-year-old female with a chronic history of schizoaffective disorder, admitted to [facility] with confusion and worsening of psychosis, depression and anxiety. INTERVAL HISTORY: Patient reports feeling better with the increase of her medications. She claims to have been sleeping well which in turn is helping her with her anxiety and says she is no longer anxious. She reports good appetite. She stated she was unable to sit through her groups today. MENTAL STATUS EXAMINATION: The patient is alert and oriented 4 and in no apparent distress. Motor and speech behaviors are within normal limits. Mood is "much better" and affect is constricted. thought processes linear thought content is negative for suicidal or homicidal ideation. insight and judgment are improving. Denies current auditory or visual hallucinations. Denies paranoid ideations ASSESSMENT Schizoaffective disorder, depressive type History of PTSD Cannabis use disorder PLAN: Continue Risperdal to 3 mg twice a day for psychosis trazodone to 300 mg daily at bedtime for mood and insomnia prazosin 4 mg daily at bedtime for nightmares. Zoloft to 200 mg daily for mood/anxiety. Ativan 1 mg 3 times a day scheduled for anxiety
[2018-12-22 20:03] LABS: Glucose,Whole Blood 153 mg/dL (75-99)
[2018-12-22] MEDS: traZODone HCL 100 MG TAB PO SCH (20:19)
[2018-12-22] MEDS: MELATONIN 5 MG TABLET PO SCH (20:19)
[2018-12-22] MEDS: PRAZOSIN 1 MG CAP PO SCH (20:19)
[2018-12-23] MEDS: INSULIN ASPART (NovoLOG) 100 UNIT/ML VIAL SQ SCH ×4 (07:44→20:17)
[2018-12-23 08:09] LABS: Glucose,Whole Blood 136 mg/dL (75-99)
[2018-12-23] MEDS: CYCLOBENZAPRINE 5 MG TAB PO PRN ×2 (08:40→21:51)
[2018-12-23] MEDS: LORazepam 1 MG TAB PO SCH ×3 (08:40→20:42)
[2018-12-23] MEDS: hydrOXYzine PAMOATE 25 MG CAP PO SCH ×3 (08:40→20:17)
[2018-12-23] MEDS: risperiDONE 1 MG TAB PO SCH ×2 (08:41→20:42)
[2018-12-23] MEDS: BUTALB/APAP/CAFF 50-325-40MG TAB PO PRN ×2 (08:41→12:13)
[2018-12-23] MEDS: SERTRALINE 100 MG TAB PO SCH (08:41)
[2018-12-23] MEDS: ASPIRIN 81 MG PO SCH (08:41)
[2018-12-23] MEDS: PIOGLITAZONE 45 MG TAB PO SCH (08:42)
[2018-12-23] MEDS: PROPRANOLOL 10 MG TAB PO SCH ×2 (08:42→20:43)
[2018-12-23 11:39] VITALS: BMI 39.8
[2018-12-23 12:53] LABS: Glucose,Whole Blood 88 mg/dL (75-99)
--- NOTE | 2018-12-23 12:57 | P.PN ---
Progress Note - Text Progress Note Date: 12/23/18 IDENTIFICATION DATA: Patient is a 43-year-old female with a chronic history of schizoaffective disorder, admitted to [facility] with confusion and worsening of psychosis, depression and anxiety. INTERVAL HISTORY: Patient was seen today. She reports difficulty breathing which could be her anxiety, however she asked if she could get claritin or something else saying she also has been coughing with expectoration. She was advised to talk to primary care physician. She reports smelling a male person being in the room and when she looks around no one would be there and asked if this normal with mental illness. Patient was reassured that it is the symptom of her mental illness and should use distraction techniques to cope with her symptoms in addition to being compliant with her medications. She reports good appetite and fair sleep. Attends all her groups. MENTAL STATUS EXAMINATION: Patient her stated age in fair grooming and hygeine. Mintains good eye contact. The patient is alert and oriented 4. Motor and speech behaviors are within normal limits. Mood is anxious and affect is constricted. thought processes linear thought content is negative for suicidal or homicidal ideation. insight and judgment are improving. Denies current auditory or visual hallucinations. reports paranoid ideations ASSESSMENT Schizoaffective disorder, depressive type History of PTSD Cannabis use disorder PLAN: Continue Risperdal to 3 mg twice a day for psychosis trazodone 300 mg daily at bedtime for mood and insomnia prazosin 4 mg daily at bedtime for nightmares. Zoloft to 200 mg daily for mood/anxiety. Ativan 1 mg 3 times a day scheduled for anxiety
[2018-12-23 17:35] LABS: Glucose,Whole Blood 118 mg/dL (75-99)
[2018-12-23 20:05] LABS: Glucose,Whole Blood 177 mg/dL (75-99)
[2018-12-23] MEDS: traZODone HCL 100 MG TAB PO SCH (20:42)
[2018-12-23] MEDS: PRAZOSIN 1 MG CAP PO SCH (20:43)
[2018-12-23] MEDS: MELATONIN 5 MG TABLET PO SCH (20:43)
[2018-12-24 07:35] LABS: Glucose,Whole Blood 126 mg/dL (75-99)
[2018-12-24] MEDS: INSULIN ASPART (NovoLOG) 100 UNIT/ML VIAL SQ SCH ×4 (07:37→20:05)
[2018-12-24] MEDS: PROPRANOLOL 10 MG TAB PO SCH ×2 (07:43→20:06)
[2018-12-24] MEDS: PIOGLITAZONE 45 MG TAB PO SCH (07:43)
[2018-12-24] MEDS: hydrOXYzine PAMOATE 25 MG CAP PO SCH ×3 (07:44→20:54)
[2018-12-24] MEDS: LORazepam 1 MG TAB PO SCH ×3 (07:44→20:07)
[2018-12-24] MEDS: ASPIRIN 81 MG PO SCH (07:44)
[2018-12-24] MEDS: risperiDONE 1 MG TAB PO SCH ×2 (07:44→20:07)
[2018-12-24] MEDS: SERTRALINE 100 MG TAB PO SCH (07:44)
[2018-12-24] MEDS: CYCLOBENZAPRINE 5 MG TAB PO PRN ×2 (09:02→20:08)
[2018-12-24] MEDS: ACETAMINOPHEN TAB 325 MG TAB PO PRN (09:02)
--- NOTE | 2018-12-24 10:06 | P.PN ---
Progress Note - Text Progress Note Date: 12/24/18 Interval History: Patient was seen this morning while she was in group and was agreeable to speak to fiction writer in the office. Patient appeared to be calmer today and have a brighter affect. She stated that she is feeling much better now as over the weekend she felt the increase in her medications with the Zoloft and trazodone has really been helping her sleep and improved her anxiety. Patient also noted that she feels that her headache medication had caffeine in it which she claims that she is sensitive to and was contributing to her anxiety and wanted to be discontinued on that. She claimed that her sleep has been much better now and she is having less nightmares throughout the night. She claims that her appetite and energy have been improving. Patient is less preoccupied with her medications today. She states that she is going to groups which she find is helpful and mentions trying to use new coping skills which she learned over the weekend including guided imagery. At this time patient denies any suicidal or homical ideations, intent or plan. Patient denies any paranoia or delusions. Patient denies any side effects from the medications and has been compliant with meds. Mental Status Exam: General Appearance: Patient appears to be older than stated age is alert, pleas ant, and cooperative. Patient is overweight and wearing street clothing. Behavior: Patient is seated without any agitated behavior. Speech: Patient's speech is fluent and nonpressured. Mood/Affect: Mood is improving, affect is congruent and constricted. Suicidality/Homicidality: Patient denies having any suicidal or homicidal ideation intent or plan. Perceptions: Patient denies any auditory or visual hallucinations. Though content/process: There is no evidence of any delusional thought content and thought process is linear and goal-directed. Memory and concentration: AOX3, grossly intact for the purposes of this session Judgment and insight: fair, improving mildly Assessment Schizoaffective disorder, depressive type History of PTSD Cannabis use disorder Plan: -Patient continues to meet criteria for inpatient psychiatric admission for symptom stabilization and safety. Patient has signed adult voluntary form and medication consent was placed in patient's chart. -Medications: Continue with Risperdal to 3 mg twice a day for psychosis. Will continue with trazodone to 300 mg daily at bedtime for mood and insomnia. Continue with Ativan 1 mg to 3 times a day scheduled for anxiety. Will continue with prazosin 4 mg daily at bedtime for nightmares. Continue with Zoloft to 200 mg daily for mood/anxiety. Vistaril 50 mg every 8 hours when necessary for anxiety. Patient is to take all her nighttime medications at the same time. -When necessary Ativan for agitation/aggression. -NRT - not needed as patient does not smoke. -SW on board for discharge planning. Likely discharge tomorrow back home.
[2018-12-24 12:24] LABS: Glucose,Whole Blood 77 mg/dL (75-99)
[2018-12-24 17:25] LABS: Glucose,Whole Blood 120 mg/dL (75-99)
[2018-12-24 19:53] LABS: Glucose,Whole Blood 191 mg/dL (75-99)
[2018-12-24] MEDS: PRAZOSIN 1 MG CAP PO SCH (20:06)
[2018-12-24] MEDS: traZODone HCL 100 MG TAB PO SCH (20:07)
[2018-12-24] MEDS: MELATONIN 5 MG TABLET PO SCH (20:54)
[2018-12-25 06:44] VITALS: TEMP 98.9
[2018-12-25] MEDS: INSULIN ASPART (NovoLOG) 100 UNIT/ML VIAL SQ SCH (07:46)
[2018-12-25 07:55] LABS: Glucose,Whole Blood 128 mg/dL (75-99)
[2018-12-25] MEDS: risperiDONE 1 MG TAB PO SCH (08:55)
[2018-12-25] MEDS: SERTRALINE 100 MG TAB PO SCH (08:55)
[2018-12-25] MEDS: ASPIRIN 81 MG PO SCH (08:55)
[2018-12-25] MEDS: hydrOXYzine PAMOATE 25 MG CAP PO SCH (08:55)
[2018-12-25] MEDS: PIOGLITAZONE 45 MG TAB PO SCH (08:56)
[2018-12-25] MEDS: PROPRANOLOL 10 MG TAB PO SCH (08:56)
[2018-12-25] MEDS: LORazepam 1 MG TAB PO SCH (08:56)
[2018-12-25 09:00] VITALS: BP 114/71; PULSE 116; RESP 18
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
[2018-12-25] MEDS: CYCLOBENZAPRINE 5 MG TAB PO PRN (09:50)
== END 2018-12-25 11:42 | disposition home or self-care (01) | DRG 885 ==
LOC: 3MHU 18:10
PROVIDERS: ADMIT Psychiatry & Neurology Psychiatry; ATTEND Psychiatry & Neurology Psychiatry
DX: F25.1 Schizoaffective disorder, depressive type (principal); R45.851 Suicidal ideations; K52.1 Toxic gastroenteritis and colitis; E11.40 Type 2 diabetes mellitus with diabetic neuropathy, unspecified; F12.10 Cannabis abuse, uncomplicated; F43.10 Post-traumatic stress disorder, unspecified; G47.00 Insomnia, unspecified; G89.29 Other chronic pain; M79.7 Fibromyalgia; Q05.9 Spina bifida, unspecified; Z79.899 Other long term (current) drug therapy; Z81.8 Family history of other mental and behavioral disorders; K21.9 Gastro-esophageal reflux disease without esophagitis; I25.2 Old myocardial infarction; Z87.01 Personal history of pneumonia (recurrent); G47.30 Sleep apnea, unspecified; Z99.89 Dependence on other enabling machines and devices; Z71.51 Drug abuse counseling and surveillance of drug abuser; Z82.61 Family history of arthritis; T36.4X5A Adverse effect of tetracyclines, initial encounter; Z60.2 Problems related to living alone; F41.9 Anxiety disorder, unspecified; Z88.5 Allergy status to narcotic agent; Z88.2 Allergy status to sulfonamides; Z88.8 Allergy status to other drugs, medicaments and biological substances; G40.909 Epilepsy, unspecified, not intractable, without status epilepticus

== ENCOUNTER 2019-01-05 12:02 | Emergency (ER) | payer BC ==
[2019-01-05 12:13] VITALS: BP 115/72; PULSE 98; RESP 18; TEMP 97.3
--- NOTE | 2019-01-05 13:07 | ED ---
General Adult HPI - General Chief complaint: Psychiatric Symptoms Stated complaint: Headache, Dizzy, Hearing/Seeing Things Time Seen by Provider: 01/05/19 12:18 Source: patient, RN notes reviewed Mode of arrival: ambulatory Limitations: no limitations - History of Present Illness Initial comments: Patient is a pleasant 43-year-old female presenting to the emergency department with concern regarding hallucinations. Patient has been hallucinating) past 3 days. Patient hears voices that tell her to harm herself. Voices are from her ex- or from a radio-type boiler house mechanic. Patient also sees people running around and running in front of her car as well as animals. Patient does feel little bit paranoid. Patient uses marijuana, otherwise no street drugs. No alcohol use. Patient has chronic head and neck pain that is unchanged. - Related Data Home Medications Medication Instructions Recorded Confirmed Pioglitazone [Actos] 45 mg PO DAILY 05/22/18 01/05/19 INSULIN LISPRO (HumaLOG) [humaLOG] See Protocol SQ ACHS 01/05/19 01/05/19 hydrOXYzine PAMOATE [Vistaril] 50 mg PO TID@0900,1600,2200 PRN 01/05/19 01/05/19 Previous Rx's Medication Instructions Recorded Aspirin EC [Ecotrin Low Dose] 81 mg PO DAILY #1 tablet. 12/10/18 Acetaminophen Tab [Tylenol] 650 mg PO Q4HR PRN tab 12/25/18 Cyclobenzaprine [Flexeril] 5 mg PO Q12HR PRN 7 Days tab 12/25/18 LORazepam [Ativan] 1 mg PO TID 14 Days tab 12/25/18 Melatonin 5 mg PO HS 28 Days tablet 12/25/18 Prazosin [Minipress] 4 mg PO HS 28 Days cap 12/25/18 Propranolol [Inderal] 30 mg PO BID 28 Days tab 12/25/18 Sertraline [Zoloft] 200 mg PO DAILY 28 Days tab 12/25/18 risperiDONE [RisperDAL] 3 mg PO BID 28 Days tablet 12/25/18 traZODone HCL [Desyrel] 300 mg PO HS 28 Days tab 12/25/18 Allergies Allergy/AdvReac Type Severity Reaction Status Date / Time celery Allergy Severe Anaphylaxis Verified 01/05/19 12:53 codeine Allergy Severe Anaphylaxis Verified 01/05/19 12:53 iodine Allergy Severe Rash/Hives Verified 01/05/19 12:53 Sulfa (Sulfonamide Allergy Severe Anaphylaxis Verified 01/05/19 12:53 Antibiotics) tramadol Allergy Severe Anaphylaxis Verified 01/05/19 12:53 gabapentin Allergy Intermediate Rash/Hives Verified 01/05/19 12:53 latex Allergy Intermediate Rash/Hives Verified 01/05/19 12:53 onion Allergy Intermediate Unknown Verified 01/05/19 12:53 shellfish derived Allergy Intermediate Rash/Hives Verified 01/05/19 12:53 basil Allergy Rash/Hives Verified 01/05/19 12:53 carrot Allergy Rash/Hives Verified 01/05/19 12:53 oregano Allergy Rash/Hives Verified 01/05/19 12:53 Pepper Allergy Rash/Hives Verified 01/05/19 12:53 tomato Allergy Rash/Hives Verified 01/05/19 12:53 CILANTRO Allergy Anaphylaxis Uncoded 01/05/19 12:53 Review of Systems ROS Statement: Those systems with pertinent positive or pertinent negative responses have been documented in the HPI. ROS Other: All systems not noted in ROS Statement are negative. Constitutional: Denies: fever Eyes: Denies: eye pain ENT: Denies: ear pain Respiratory: Denies: dyspnea Cardiovascular: Denies: chest pain Endocrine: Denies: fatigue Gastrointestinal: Denies: abdominal pain Genitourinary: Denies: dysuria Musculoskeletal: Reports: as per HPI Skin: Denies: rash Neurological: Reports: as per HPI Psychiatric: Reports: depression, auditory hallucinations, visual hallucinations Past Medical History Past Medical History: Asthma, Chest Pain / Angina, Diabetes Mellitus, Fibromyalgia, GERD/Reflux, Hyperlipidemia, Hypertension, Myocardial Infarction (DC), Neurologic Disorder, Pneumonia, Seizure Disorder, Sleep Apnea/CPAP/BIPAP Additional Past Medical History / Comment(s): NEUROPATHY, SPINA BIFIDA, GOUT, urinary retention, chronic pain to her back and legs Last Myocardial Infarction Date:: 2009 History of Any Multi-Drug Resistant Organisms: None Reported Past Surgical History: Section, Cholecystectomy, Hysterectomy, Orthopedic Surgery, Tonsillectomy Additional Past Surgical History / Comment(s): Arthroscopic LEFT KNEE, KIDNEY SURGERY AT AGE 7 Past Anesthesia/Blood Transfusion Reactions: Postoperative Nausea & Vomiting (PONV) Past Psychological History: Anxiety, Bipolar, Depression, PTSD, Schizophrenia Smoking Status: Former smoker Past Alcohol Use History: None Reported Past Drug Use History: Marijuana - Past Family History Mother Additional Family Medical History / Comment(s): Mother is alive at age 60 with history of RA, Fibromyalgia. Father Family Medical History: Diabetes Mellitus Additional Family Medical History / Comment(s): Father is alive at age 68 with history of diabetes and sleep apnea. Brother(s) Additional Family Medical History / Comment(s): Patient has 2 brothers. One is healthy and the other has mental health issues and chronic back pain. She does not have any sisters. She has one daughter with bipolar and ADHD. General Exam Limitations: no limitations General appearance: alert, in no apparent distress Head exam: Present: normocephalic Eye exam: Present: normal appearance Neck exam: Present: normal inspection Respiratory exam: Present: normal lung sounds bilaterally Cardiovascular Exam: Present: regular rate, normal rhythm GI/Abdominal exam: Present: soft. Absent: tenderness Extremities exam: Present: normal inspection Neurological exam: Present: alert. Absent: motor sensory deficit Expanded Motor strength exam: RUE: 5, LUE: 5, RLE: 5, LLE: 5 Eye Response: (4) open spontaneously Motor Response: (6) obeys commands Verbal Response: (5) oriented Psychiatric exam: Present: normal affect, normal mood Skin exam: Present: normal color Course Vital Signs 01/05/19 12:09 Temperature 97.3 F L Pulse Rate 98 Respiratory 18 Rate Blood Pressure 115/72 O2 Sat by Pulse 98 Oximetry Medical Decision Making - Medical Decision Making Patient seen by mental health services who is familiar with patient and recommends discharge. Patient contracts for safety. Patient requests medication for her headache including Valium and narcotic and Benadryl and Toradol. Patient states at home she normally takes fouracet and muscle relaxers and pain pills. Disposition Clinical Impression: Depression, Chronic pain Disposition: HOME SELF-CARE Condition: Stable Instructions (If sedation given, give patient instructions): Chronic Pain (ED), Depression (ED), Help Prevent Suicide (ED), General Headache (ED) Additional Instructions: Please follow-up with mental health services as directed. Please follow-up with primary care physician in the next couple days for recheck. Return for thoughts of self-harm, change in chronic headaches, worsening symptoms or other concerns. Is patient prescribed a controlled substance at d/c from ED?: No Referrals: Guillermo Xiao MD [Primary Care Provider] - 1-2 days Time of Disposition: 14:05
[2019-01-05] MEDS ORDERED: KETOROLAC 60 MG/2 ML VIAL IM STA (14:06)
[2019-01-05] MEDS ORDERED: diphenhydrAMINE 50 MG/ML 1 ML VIAL IM STA (14:06)
== END 2019-01-05 15:01 | disposition home or self-care (01) ==
LOC: EC 12:02
DX: F32.9 Major depressive disorder, single episode, unspecified (principal); G89.29 Other chronic pain; I10 Essential (primary) hypertension; I25.2 Old myocardial infarction; E11.40 Type 2 diabetes mellitus with diabetic neuropathy, unspecified; G47.30 Sleep apnea, unspecified; Z87.891 Personal history of nicotine dependence; Z79.4 Long term (current) use of insulin; Z91.018 Allergy to other foods; Z88.5 Allergy status to narcotic agent; Z91.048 Other nonmedicinal substance allergy status; Z88.2 Allergy status to sulfonamides; Z88.8 Allergy status to other drugs, medicaments and biological substances; Z91.040 Latex allergy status; Z91.013 Allergy to seafood; Z99.89 Dependence on other enabling machines and devices
CPT/HCPCS: 82075; 99285; 96372 ×2; J1200; J1885

== ENCOUNTER 2019-01-18 19:51 | Inpatient (IN) | payer BC, MEDICARE ==
[2019-01-18] MEDS ORDERED: diphenhydrAMINE 50 MG CAP PO STA (20:35)
[2019-01-18] MEDS ORDERED: DEXAMETHASONE 4 MG TAB PO STA (20:35)
[2019-01-18] MEDS ORDERED: PROCHLORPERAZINE 10 MG TAB PO STA (20:35)
[2019-01-18] MEDS ORDERED: IBUPROFEN 800 MG TAB PO STA (20:35)
--- NOTE | 2019-01-18 20:45 | ED ---
Psych HPI - General Chief Complaint: Psychiatric Symptoms Stated Complaint: Mental Health Time Seen by Provider: 01/18/19 19:59 Source: patient, RN notes reviewed, old records reviewed Mode of arrival: ambulatory - History of Present Illness Initial Comments: This is a 43-year-old female the ER. Patient presents today for evaluation regards to psychiatric illness. Voice is seeing voices talking to people weren't there. History of psychiatric illness does follow psychiatrist no recent medication changes on multiple psychiatric medications patient unsure of all the names. No recent drugs or alcohol. Patient's not homicidal or suicidal although she does post states that with "" yet. Patient again denies drugs rel call use complaining of headache history of headaches she's had evaluation of her headaches in the past with no significant cause found for patient states headache currently is been lasting longer than normal MD Complaint: feels depressed, other (Hearing and seeing things) -: month(s) Associated Psychiatric Symptoms: racing thoughts, auditory hallucinations, visual hallucinations History of same: No Quality: intermittent Improves With: none Worsens With: none Context: other Associated Symptoms: denies other symptoms Treatments Prior to Arrival: placed on mental health hold - Related Data Home Medications Medication Instructions Recorded Confirmed Pioglitazone [Actos] 45 mg PO DAILY 05/22/18 01/18/19 hydrOXYzine PAMOATE [Vistaril] 50 mg PO TID@0900,1600,2200 PRN 01/05/19 01/18/19 Butalbital/Aspirin/Caffeine 1 tab PO Q8H PRN 01/18/19 01/18/19 [Mkypzo-Ozqthnm-Aapygceu 50-325-40 mg] Cyclobenzaprine [Flexeril] 5 mg PO TID 01/18/19 01/18/19 Dulaglutide [Trulicity] 1.5 mg SQ CERDA 01/18/19 01/18/19 Propranolol [Inderal] 20 mg PO BID 01/18/19 01/18/19 Previous Rx's Medication Instructions Recorded Aspirin EC [Ecotrin Low Dose] 81 mg PO DAILY #1 tablet. 12/10/18 LORazepam [Ativan] 1 mg PO TID 14 Days tab 12/25/18 Prazosin [Minipress] 4 mg PO HS 28 Days cap 12/25/18 Sertraline [Zoloft] 200 mg PO DAILY 28 Days tab 12/25/18 risperiDONE [RisperDAL] 3 mg PO BID 28 Days tablet 12/25/18 traZODone HCL [Desyrel] 300 mg PO HS 28 Days tab 12/25/18 Allergies Allergy/AdvReac Type Severity Reaction Status Date / Time celery Allergy Severe Anaphylaxis Verified 01/05/19 12:53 codeine Allergy Severe Anaphylaxis Verified 01/05/19 12:53 iodine Allergy Severe Rash/Hives Verified 01/05/19 12:53 Sulfa (Sulfonamide Allergy Severe Anaphylaxis Verified 01/05/19 12:53 Antibiotics) tramadol Allergy Severe Anaphylaxis Verified 01/05/19 12:53 gabapentin Allergy Intermediate Rash/Hives Verified 01/05/19 12:53 latex Allergy Intermediate Rash/Hives Verified 01/05/19 12:53 onion Allergy Intermediate Unknown Verified 01/05/19 12:53 shellfish derived Allergy Intermediate Rash/Hives Verified 01/05/19 12:53 basil Allergy Rash/Hives Verified 01/05/19 12:53 carrot Allergy Rash/Hives Verified 01/05/19 12:53 oregano Allergy Rash/Hives Verified 01/05/19 12:53 Pepper Allergy Rash/Hives Verified 01/05/19 12:53 tomato Allergy Rash/Hives Verified 01/05/19 12:53 CILANTRO Allergy Anaphylaxis Uncoded 01/05/19 12:53 Review of Systems ROS Statement: Those systems with pertinent positive or pertinent negative responses have been documented in the HPI. ROS Other: All systems not noted in ROS Statement are negative. Past Medical History Past Medical History: Asthma, Chest Pain / Angina, Diabetes Mellitus, Fibromyalgia, GERD/Reflux, Hyperlipidemia, Hypertension, Myocardial Infarction ([place]), Neurologic Disorder, Pneumonia, Seizure Disorder, Sleep Apnea/CPAP/BIPAP Additional Past Medical History / Comment(s): NEUROPATHY, SPINA BIFIDA, GOUT, urinary retention, chronic pain to her back and legs Last Myocardial Infarction Date:: 2009 History of Any Multi-Drug Resistant Organisms: None Reported Past Surgical History: Section, Cholecystectomy, Hysterectomy, Orthopedic Surgery, Tonsillectomy Additional Past Surgical History / Comment(s): Arthroscopic LEFT KNEE, KIDNEY SURGERY AT AGE 7 Past Anesthesia/Blood Transfusion Reactions: Postoperative Nausea & Vomiting (PONV) Past Psychological History: Anxiety, Bipolar, Depression, PTSD, Schizophrenia Smoking Status: Former smoker Past Alcohol Use History: None Reported Past Drug Use History: Marijuana - Past Family History Mother Additional Family Medical History / Comment(s): Mother is alive at age 60 with history of RA, Fibromyalgia. Father Family Medical History: Diabetes Mellitus Additional Family Medical History / Comment(s): Father is alive at age 68 with history of diabetes and sleep apnea. Brother(s) Additional Family Medical History / Comment(s): Patient has 2 brothers. One is healthy and the other has mental health issues and chronic back pain. She does not have any sisters. She has one daughter with bipolar and ADHD. General Exam Limitations: no limitations General appearance: alert, in no apparent distress Head exam: Present: atraumatic, normocephalic, normal inspection Eye exam: Present: normal appearance, PERRL, EOMI. Absent: scleral icterus, conjunctival injection, periorbital swelling ENT exam: Present: normal exam, mucous membranes moist Neck exam: Present: normal inspection. Absent: tenderness, meningismus, lymphadenopathy Respiratory exam: Present: normal lung sounds bilaterally. Absent: respiratory distress, wheezes, rales, rhonchi, stridor Cardiovascular Exam: Present: regular rate, normal rhythm, normal heart sounds. Absent: systolic murmur, diastolic murmur, rubs, gallop, clicks GI/Abdominal exam: Present: soft, normal bowel sounds. Absent: distended, tenderness, guarding, rebound, rigid Extremities exam: Present: normal inspection, full ROM, normal capillary refill. Absent: tenderness, pedal edema, joint swelling, calf tenderness Back exam: Present: normal inspection Neurological exam: Present: alert, oriented X3, CN II-XII intact Psychiatric exam: Present: normal affect, normal mood Skin exam: Present: warm, dry, intact, normal color. Absent: rash Course Vital Signs 01/18/19 19:52 Temperature 98 F Pulse Rate 96 Respiratory 18 Rate Blood Pressure 116/78 O2 Sat by Pulse 98 Oximetry - Reevaluation(s) Reevaluation #1: 01/18/19 20:45 Medical record is reviewed Medical Decision Making - Medical Decision Making 43 female the ER for evaluation of psychiatric illness. Patient be admitted for psychiatric evaluation and treatment - Lab Data Lab Results 01/18/19 Range/Units 20:07 Urine Opiates Screen Not Detected (NotDetected) Ur Oxycodone Screen Not Detected (NotDetected) Urine Methadone Screen Not Detected (NotDetected) Ur Propoxyphene Screen Not Detected (NotDetected) Ur Barbiturates Screen Detected H (NotDetected) U Tricyclic Antidepress Detected H (NotDetected) Ur Phencyclidine Scrn Not Detected (NotDetected) Ur Amphetamines Screen Not Detected (NotDetected) U Methamphetamines Scrn Not Detected (NotDetected) U Benzodiazepines Scrn Detected H (NotDetected) Urine Cocaine Screen Not Detected (NotDetected) U Marijuana (THC) Screen Detected H (NotDetected) Disposition Clinical Impression: Acute psychosis, Schizoaffective disorder, depressive type Disposition: TRANSFER TO PSYCH HOSP/UNIT Condition: Fair Is patient prescribed a controlled substance at d/c from ED?: No Referrals: Guillermo Xiao MD [Primary Care Provider] - 1-2 days
--- NOTE | 2019-01-18 21:22 | CT ---
EXAMINATION: CT brain wo con DATE AND TIME: 01/18/2019 9:02 PM CLINICAL INDICATION: PHH; headaches, hallucinations TECHNIQUE: Department protocol. COMPARISON: 02/23/2018 FINDINGS: The calvarium is intact. There is no intracranial hemorrhage. There is no intracranial mass or mass effect. No definite new intra-axial or extra-axial attenuation defect. The paranasal sinuses, middle ear cavities, and mastoid sinus air cells are clear. The orbits are unremarkable. IMPRESSION: NO ACUTE PROCESS.
[2019-01-18 21:34] LABS: Amphetamine Screen,Urine Not Detected (NotDetected); Barbiturate Screen,Urine Detected (NotDetected); Benzodiazepines Screen,Urine Detected (NotDetected); Cocaine Screen,Urine Not Detected (NotDetected); Methadone Screen, Urine Not Detected (NotDetected); Opiate Screen,Urine Not Detected (NotDetected); Oxycodone Screen, Urine Not Detected (NotDetected); Phencyclidine Screen,Urine Not Detected (NotDetected); Tricyclic Antidepressant,Urine Detected (NotDetected); Urn Cannabinoid Scrn Detected (NotDetected)
[2019-01-18] MEDS ORDERED: MAGNESIUM HYDROXIDE 2,400 MG/10 ML CUP PO PRN (23:26)
[2019-01-18] MEDS ORDERED: MAG HYDROX/AL HYDROX/SIMETH 30 ML CUP PO PRN (23:26)
[2019-01-19 00:09] LABS: Glucose,Whole Blood 145 mg/dL (75-99)
[2019-01-19 07:52] LABS: Glucose,Whole Blood 173 mg/dL (75-99)
[2019-01-19] MEDS: PROPRANOLOL 20 MG TAB PO SCH ×2 (08:23→20:55)
[2019-01-19] MEDS: ASPIRIN 81 MG PO SCH (08:23)
[2019-01-19] MEDS: CYCLOBENZAPRINE 5 MG TAB PO SCH ×3 (08:23→20:59)
[2019-01-19] MEDS: risperiDONE 1 MG TAB PO SCH ×2 (08:23→20:53)
[2019-01-19] MEDS: LORazepam 1 MG TAB PO SCH ×3 (08:23→20:50)
[2019-01-19] MEDS: PIOGLITAZONE 45 MG TAB PO SCH (08:23)
[2019-01-19] MEDS: hydrOXYzine PAMOATE 25 MG CAP PO PRN ×2 (08:24→16:59)
[2019-01-19] MEDS: SERTRALINE 100 MG TAB PO SCH (08:24)
[2019-01-19 09:28] LABS: Basophils # (A) 0.1 k/uL (0-0.2); Basophils % (A) 1 %; Eosinophils % (A) 0 %; HCT 48.2 % (34.0-46.0); HGB 15.9 gm/dL (11.4-16.0); Lymphocytes # (A) 2.1 k/uL (1.0-4.8); Lymphocytes % (A) 16 %; MCH 31.5 pg (25.0-35.0); MCHC 32.9 g/dL (31.0-37.0); MCV 95.7 fL (80.0-100.0); Mean Platelet Volume 5.9; Monocytes # (A) 0.3 k/uL (0-1.0); Monocytes % (A) 2 %; Neutrophils # (A) 10.7 k/uL (1.3-7.7); Neutrophils % (A) 81 %; Platelet Count 370 k/uL (150-450); RBC 5.04 m/uL (3.80-5.40); RDW 12.6 % (11.5-15.5); WBC 13.3 k/uL (3.8-10.6)
[2019-01-19 09:41] LABS: ALT 17 U/L (9-52); AST 22 U/L (14-36); African American GFR (CKD) >90 (>60 ml/min/1.73 sqM); Albumin 4.4 g/dL (3.5-5.0); Alkaline Phosphatase 115 U/L (38-126); Anion Gap 14 mmol/L; Blood Urea Nitrogen 17 mg/dL (7-17); Calcium 9.5 mg/dL (8.4-10.2); Carbon Dioxide 26 mmol/L (22-30); Chloride 100 mmol/L (98-107); Cholesterol 288 mg/dL (<200); Glucose 184 mg/dL (74-99); HDL Cholesterol 80 mg/dL (40-60); LDL Cholesterol,Calculated 179 mg/dL (0-99); Potassium 3.8 mmol/L (3.5-5.1); Sodium 140 mmol/L (137-145); Total Bilirubin 0.4 mg/dL (0.2-1.3); Total Protein 7.8 g/dL (6.3-8.2); Triglycerides 145 mg/dL (<150)
[2019-01-19 12:49] LABS: Glucose,Whole Blood 135 mg/dL (75-99)
[2019-01-19] MEDS: ACETAMINOPHEN TAB 325 MG TAB PO PRN (14:47)
[2019-01-19 17:07] LABS: Glucose,Whole Blood 144 mg/dL (75-99)
--- NOTE | 2019-01-19 19:29 | P.HP ---
Psychiatric H&P - . H&P Date: 01/19/19 History & Physical: Allergies Allergy/AdvReac Type Severity Reaction Status Date / Time celery Allergy Severe Anaphylaxis Verified 01/05/19 12:53 codeine Allergy Severe Anaphylaxis Verified 01/05/19 12:53 iodine Allergy Severe Rash/Hives Verified 01/05/19 12:53 Sulfa (Sulfonamide Allergy Severe Anaphylaxis Verified 01/05/19 12:53 Antibiotics) tramadol Allergy Severe Anaphylaxis Verified 01/05/19 12:53 gabapentin Allergy Intermediate Rash/Hives Verified 01/05/19 12:53 latex Allergy Intermediate Rash/Hives Verified 01/05/19 12:53 onion Allergy Intermediate Unknown Verified 01/05/19 12:53 shellfish derived Allergy Intermediate Rash/Hives Verified 01/05/19 12:53 basil Allergy Rash/Hives Verified 01/05/19 12:53 carrot Allergy Rash/Hives Verified 01/05/19 12:53 oregano Allergy Rash/Hives Verified 01/05/19 12:53 Pepper Allergy Rash/Hives Verified 01/05/19 12:53 tomato Allergy Rash/Hives Verified 01/05/19 12:53 CILANTRO Allergy Anaphylaxis Uncoded 01/05/19 12:53 Vital Signs Temp 97.9 F 01/19/19 00:19 Pulse 105 H 01/19/19 00:19 Resp 18 01/19/19 00:19 BP 141/79 01/19/19 00:19 Pulse Ox 93 L 01/19/19 00:19 Intake & Output 01/19/19 01/19/19 01/20/19 06:59 18:59 06:59 Weight 90.718 kg Laboratory Last Values WBC 13.3 k/uL (3.8-10.6) H 01/19/19 08:49 RBC 5.04 m/uL (3.80-5.40) 01/19/19 08:49 Hgb 15.9 gm/dL (11.4-16.0) 01/19/19 08:49 Hct 48.2 % (34.0-46.0) H 01/19/19 08:49 MCV 95.7 fL (80.0-100.0) 01/19/19 08:49 MCH 31.5 pg (25.0-35.0) 01/19/19 08:49 MCHC 32.9 g/dL (31.0-37.0) 01/19/19 08:49 RDW 12.6 % (11.5-15.5) 01/19/19 08:49 Plt Count 370 k/uL (150-450) 01/19/19 08:49 Neutrophils % 81 % 01/19/19 08:49 Lymphocytes % 16 % 01/19/19 08:49 Monocytes % 2 % 01/19/19 08:49 Eosinophils % 0 % 01/19/19 08:49 Basophils % 1 % 01/19/19 08:49 Neutrophils # 10.7 k/uL (1.3-7.7) H 01/19/19 08:49 Lymphocytes # 2.1 k/uL (1.0-4.8) 01/19/19 08:49 Monocytes # 0.3 k/uL (0-1.0) 01/19/19 08:49 Eosinophils # 0.0 k/uL (0-0.7) 01/19/19 08:49 Basophils # 0.1 k/uL (0-0.2) 01/19/19 08:49 Sodium 140 mmol/L (137-145) 01/19/19 08:49 Potassium 3.8 mmol/L (3.5-5.1) 01/19/19 08:49 Chloride 100 mmol/L (98-107) 01/19/19 08:49 Carbon Dioxide 26 mmol/L (22-30) 01/19/19 08:49 Anion Gap 14 mmol/L 01/19/19 08:49 BUN 17 mg/dL (7-17) 01/19/19 08:49 Creatinine 0.66 mg/dL (0.52-1.04) 01/19/19 08:49 Est GFR (CKD-EPI)AfAm >90 (>60 ml/min/1.73 sqM) 01/19/19 08:49 Est GFR (CKD-EPI)NonAf >90 (>60 ml/min/1.73 sqM) 01/19/19 08:49 Glucose 184 mg/dL (74-99) H 01/19/19 08:49 POC Glucose (mg/dL) 144 mg/dL (75-99) H 01/19/19 17:05 POC Glu [employer] Developer Diana Richardson 01/19/19 17:05 Calcium 9.5 mg/dL (8.4-10.2) 01/19/19 08:49 Total Bilirubin 0.4 mg/dL (0.2-1.3) 01/19/19 08:49 AST 22 U/L (14-36) 01/19/19 08:49 ALT 17 U/L (9-52) 01/19/19 08:49 Alkaline Phosphatase 115 U/L (38-126) 01/19/19 08:49 Total Protein 7.8 g/dL (6.3-8.2) 01/19/19 08:49 Albumin 4.4 g/dL (3.5-5.0) 01/19/19 08:49 Triglycerides 145 mg/dL (<150) 01/19/19 08:49 Cholesterol 288 mg/dL (<200) H 01/19/19 08:49 LDL Cholesterol, Calc 179 mg/dL (0-99) H 01/19/19 08:49 HDL Cholesterol 80 mg/dL (40-60) H 01/19/19 08:49 TSH 1.720 mIU/L (0.465-4.680) 01/19/19 08:49 Urine Opiates Screen Not Detected (NotDetected) 01/18/19 20:07 Ur Oxycodone Screen Not Detected (NotDetected) 01/18/19 20:07 Urine Methadone Screen Not Detected (NotDetected) 01/18/19 20:07 Ur Propoxyphene Screen Not Detected (NotDetected) 01/18/19 20:07 Ur Barbiturates Screen Detected (NotDetected) H 01/18/19 20:07 U Tricyclic Antidepress Detected (NotDetected) H 01/18/19 20:07 Ur Phencyclidine Scrn Not Detected (NotDetected) 01/18/19 20:07 Ur Amphetamines Screen Not Detected (NotDetected) 01/18/19 20:07 U Methamphetamines Scrn Not Detected (NotDetected) 01/18/19 20:07 U Benzodiazepines Scrn Detected (NotDetected) H 01/18/19 20:07 Urine Cocaine Screen Not Detected (NotDetected) 01/18/19 20:07 U Marijuana (THC) Screen Detected (NotDetected) H 01/18/19 20:07 01/19/19 19:20 IDENTIFYING DATA: 44-year-old female patient HPI: Patient admitted to the inpatient psychiatric unit [facility] on a voluntary basis with recent depression. Patient reports that she was trying to get a hold of her outpatient psychiatrist and he told her to come in to the hospital. She says she's been having problems hearing and seeing things exam. She has been consistent with taking her psychotropic medications. She reports her sleep has been okay. She's been hearing voices such as different banging sounds and scratching noises and and seeing things that aren't there like people talking to her. She admits to some thoughts of suicide lately and does relate that she has been depressed. Says been she's been hearing voices they do tell her to hurt herself also. She admits to anxiety, racing thoughts and irritability. PAST PSYCHIATRIC HISTORY: She has had more than 10 inpatient psychiatric hospitalizations. She had a most recent discharge here in early December. She most recently has been on Risperdal 3 mg twice a day, Vistaril, trazodone, Z oloft and Ativan. She's been on the Zoloft for a little over a month and the Risperdal is fairly new as well. She was on Lamictal in the past which she says made her feel suicidal. She also took lithium which caused week and Depakote didn't work right. She has had 2 suicide attempts which were overdoses. She's been diagnosed with bipolar disorder and schizoaffective disorder. PMH: Headaches, fibromyalgia, diabetes mellitus ALLERGIES: Celery, codeine, iodine, sulfa, tramadol, gabapentin, latex, onion, shellfish, basil, Carrot, oregano, pepper, tomato, cilantro MEDICATIONS: Tylenol when necessary, Maalox when necessary, aspirin, Flexeril, trulicity, Vistaril, Ativan, milk of magnesia when necessary, Actos, Minipress, Inderal, Risperdal, Zoloft, Desyrel CHEMICAL DEPENDENCY HISTORY: Relays that she takes medical marijuana for pain FAMILY PSYCHIATRIC HISTORY: None known at this time. FAMILY CHEMICAL DEPENDENCY HISTORY: None known at this time. SOCIAL HISTORY: She lives with her 19-year-old daughter and her daughter's boyfriend. She lives on the same property as her mom and dad. She works for [employer] MENTAL STATUS EXAM: She is alert and cooperative with the interview. Her speech is fluent, not rapid or pressured. Her thought processes are organized. Her mood she relays been depressed. She denies any current thoughts of suicide and denies any thoughts of harm to others. She reports that she feels safe on the mental health unit. She denies any current auditory visual hallucinations. She does not show any agitation. Cognitively she appears to be grossly intact. I d o not note any significant memory disturbance or disorientation. Insight is adequate, judgment shows evidence of recent impairment. STRENGTHS/WEAKNESSES: Strengthsseeking treatment; weaknessescoping skills INTELLECTUAL FUNCTIONING: Average IMPRESSIONS: Bipolar disorder, depressed with psychotic features; rule out schizoaffective disorder bipolar type PLAN: Patient will be admitted to the inpatient psychiatric unit [facility] to help stabilize mood and to monitor regarding any thoughts of suicide as well as symptoms of psychosis. She will be placed on SP 15 minute precautions. She'll participate in group and activity therapies. Baseline laboratory workup will be done the patient and medical consultation will be ordered. She'll be maintained on current psychotropic medication regimen. We'll continue to monitor for any side effects and monitor her ongoing response, Zoloft may become more effective over the next weeks time. She will be initiated on Topamax to assist with mood stability, irritability and racing thoughts. This may also get some additional benefit for headaches. She has been trial of multiple different mood stabilization medications in the past with either side effects or no success. So we will give Topamax a trial. We will look into support systems. Estimated length of stay is 5-7 days. Prognosis is guarded.
[2019-01-19 20:07] LABS: Glucose,Whole Blood 184 mg/dL (75-99)
[2019-01-19 20:27] LABS: Hemoglobin A1C 6.6 % (4.0-6.0)
[2019-01-19] MEDS: traZODone HCL 100 MG TAB PO SCH (20:54)
[2019-01-19] MEDS: PRAZOSIN 1 MG CAP PO SCH (20:54)
[2019-01-19] MEDS: TOPIRAMATE 25 MG TAB PO SCH (20:55)
[2019-01-20 07:53] LABS: Glucose,Whole Blood 112 mg/dL (75-99)
[2019-01-20] MEDS: CYCLOBENZAPRINE 5 MG TAB PO SCH ×3 (08:18→20:54)
[2019-01-20] MEDS: ASPIRIN 81 MG PO SCH (08:18)
[2019-01-20] MEDS: PIOGLITAZONE 45 MG TAB PO SCH (08:19)
[2019-01-20] MEDS: LORazepam 1 MG TAB PO SCH ×3 (08:19→20:49)
[2019-01-20] MEDS: SERTRALINE 100 MG TAB PO SCH (08:19)
[2019-01-20] MEDS: risperiDONE 1 MG TAB PO SCH ×2 (08:19→20:56)
[2019-01-20] MEDS: PROPRANOLOL 20 MG TAB PO SCH ×2 (08:19→20:47)
[2019-01-20] MEDS ORDERED: Dulaglutide [Trulicity] 1.5 MG SQ SCH (09:00)
--- NOTE | 2019-01-20 10:57 | P.HPIM ---
History of Present Illness H&P Date: 01/20/19 Chief Complaint: Depression This is a 44-year-old female who was admitted electively for major depression she has a history of obstructive sleep apnea morbidly obese, his last PSG was done over 5 years ago and CPAP machine that she has is not working effectively feels that she is not getting good amount of pressure, and this is compromising her compliance as well she also have diabetes on insulin Review of Systems All systems: negative Past Medical History Past Medical History: Asthma, Chest Pain / Angina, Diabetes Mellitus, Fibromyalgia, GERD/Reflux, Hyperlipidemia, Hypertension, Myocardial Infarction ([place]), Neurologic Disorder, Pneumonia, Seizure Disorder, Sleep Apnea/CPAP/BIPAP Additional Past Medical History / Comment(s): NEUROPATHY, SPINA BIFIDA, GOUT, urinary retention, chronic pain to her back and legs Last Myocardial Infarction Date:: 2009 History of Any Multi-Drug Resistant Organisms: None Reported Past Surgical History: Section, Cholecystectomy, Hysterectomy, Ort hopedic Surgery, Tonsillectomy Additional Past Surgical History / Comment(s): Arthroscopic LEFT KNEE, KIDNEY SURGERY AT AGE 7 Past Anesthesia/Blood Transfusion Reactions: Postoperative Nausea & Vomiting (PONV) Past Psychological History: Anxiety, Bipolar, Depression, PTSD, Schizophrenia Smoking Status: Former smoker Past Alcohol Use History: None Reported Past Drug Use History: Marijuana - Past Family History Mother Additional Family Medical History / Comment(s): Mother is alive at age 60 with history of RA, Fibromyalgia. Father Family Medical History: Diabetes Mellitus Additional Family Medical History / Comment(s): Father is alive at age 68 with history of diabetes and sleep apnea. Brother(s) Additional Family Medical History / Comment(s): Patient has 2 brothers. One is healthy and the other has mental health issues and chronic back pain. She does not have any sisters. She has one daughter with bipolar and ADHD. Medications and Allergies Home Medications Medication Instructions Recorded Confirmed Type Pioglitazone [Actos] 45 mg PO DAILY 05/22/18 01/18/19 History Aspirin EC [Ecotrin Low Dose] 81 mg PO DAILY #1 tablet. 12/10/18 01/18/19 Rx LORazepam [Ativan] 1 mg PO TID 14 Days tab 12/25/18 01/18/19 Rx Prazosin [Minipress] 4 mg PO HS 28 Days cap 12/25/18 01/18/19 Rx Sertraline [Zoloft] 200 mg PO DAILY 28 Days tab 12/25/18 01/18/19 Rx risperiDONE [RisperDAL] 3 mg PO BID 28 Days tablet 12/25/18 01/18/19 Rx traZODone HCL [Desyrel] 300 mg PO HS 28 Days tab 12/25/18 01/18/19 Rx hydrOXYzine PAMOATE [Vistaril] 50 mg PO TID@0900,1600,2200 PRN 01/05/19 01/18/19 History Butalbital/Aspirin/Caffeine 1 tab PO Q8H PRN 01/18/19 01/18/19 History [Rleqbh-Ktdaayk-Jcznxxur 50-325-40 mg] Cyclobenzaprine [Flexeril] 5 mg PO TID 01/18/19 01/18/19 History Dulaglutide [Trulicity] 1.5 mg SQ CERDA 01/18/19 01/18/19 History Propranolol [Inderal] 20 mg PO BID 01/18/19 01/18/19 History Allergies Allergy/AdvReac Type Severity Reaction Status Date / Time celery Allergy Severe Anaphylaxis Verified 01/05/19 12:53 codeine Allergy Severe Anaphylaxis Verified 01/05/19 12:53 iodine Allergy Severe Rash/Hives Verified 01/05/19 12:53 Sulfa (Sulfonamide Allergy Severe Anaphylaxis Verified 01/05/19 12:53 Antibiotics) tramadol Allergy Severe Anaphylaxis Verified 01/05/19 12:53 gabapentin Allergy Intermediate Rash/Hives Verified 01/05/19 12:53 latex Allergy Intermediate Rash/Hives Verified 01/05/19 12:53 onion Allergy Intermediate Unknown Verified 01/05/19 12:53 shellfish derived Allergy Intermediate Rash/Hives Verified 01/05/19 12:53 basil Allergy Rash/Hives Verified 01/05/19 12:53 carrot Allergy Rash/Hives Verified 01/05/19 12:53 oregano Allergy Rash/Hives Verified 01/05/19 12:53 Pepper Allergy Rash/Hives Verified 01/05/19 12:53 tomato Allergy Rash/Hives Verified 01/05/19 12:53 CILANTRO Allergy Anaphylaxis Uncoded 01/05/19 12:53 Physical Exam Vitals: Vital Signs Temp Pulse Resp BP 01/20/19 06:27 97.8 F 89 16 108/59 Intake and Output 01/19/19 01/20/19 01/20/19 22:59 06:59 14:59 Other: Weight 93.1 kg - Constitutional General appearance: average body habitus - EENT Eyes: anicteric sclerae, EOMI, PERRLA, dentition normal, scleral icterus ENT: normal oropharynx Ears: bilateral: normal - Neck Neck: normal ROM Carotids: bilateral: upstroke normal Thyroid: bilateral: normal size - Respiratory Respiratory: bilateral: CTA - Cardiovascular Rhythm: regular Heart sounds: normal: S1, S2 - Gastrointestinal General gastrointestinal: normal bowel sounds - Integumentary Integumentary: normal turgor - Neurologic Neurologic: CNII-XII intact - Musculoskeletal Musculoskeletal: gait normal, generalized weakness, strength equal bilaterally - Psychiatric Psychiatric: A&O x's 3, appropriate affect, intact judgment & insight Results CBC & Chem 7: 01/19/19 08:49 01/19/19 08:49 Labs: Abnormal Lab Results - Last 24 Hours (Table) 01/19/19 01/19/19 01/19/19 Range/Units 08:49 12:47 17:05 POC Glucose (mg/dL) 135 H 144 H (75-99) mg/dL Hemoglobin A1c 6.6 H (4.0-6.0) % 01/19/19 01/20/19 Range/Units 20:05 07:50 POC Glucose (mg/dL) 184 H 112 H (75-99) mg/dL Hemoglobin A1c (4.0-6.0) % Assessment and Plan Assessment: Major depression Insulin-dependent diabetes mellitus Morbid obesity Obstructive sleep apnea Plan: Agree with psychiatric evaluation and management Resume insulin sliding scale Continue home medications Patient will need a sleep study and a new CPAP machine will arrange as an outpatient Time with Patient: Greater than 30
--- NOTE | 2019-01-20 11:23 | P.PN ---
Progress Note - Text Progress Note Date: 01/20/19 Interval history: Patient seen in cross coverage again today. She relays that she slept well last night she questions whether she received the Topamax, related that it is on her med list talk to start last night. She does not voice any adverse side effects with it. She does describe feeling depressed today. She continues to have some on and off auditory and visual hallucinations. Mental status exam: She was found in her room sleeping and did awaken with name- calling. She is cooperative to come to the interview room. Her speech is fluent, not rapid or pressured. Thought processes are organized. Her mood she describes is depressed. She admits to some on and off auditory hallucinations although none currently. She denies any thoughts of harm to self and reports she feels safe here in the unit. She does not show any agitation. Her affect is restricted. Plan: Patient be maintained on current psychotropic medication regimen. Continue to monitor for any medication side effects and monitor her ongoing response to current regimen. Continue to monitor for symptoms of psychosis and any thoughts of harm to self.
[2019-01-20 12:41] LABS: Glucose,Whole Blood 85 mg/dL (75-99)
[2019-01-20] MEDS: INSULIN ASPART (NovoLOG) 100 UNIT/ML VIAL SQ SCH ×3 (12:46→20:53)
[2019-01-20] MEDS: hydrOXYzine PAMOATE 25 MG CAP PO PRN ×2 (16:53→20:49)
[2019-01-20 17:27] LABS: Glucose,Whole Blood 107 mg/dL (75-99)
[2019-01-20 20:12] LABS: Glucose,Whole Blood 127 mg/dL (75-99)
[2019-01-20] MEDS: TOPIRAMATE 25 MG TAB PO SCH (20:47)
[2019-01-20] MEDS: PRAZOSIN 1 MG CAP PO SCH (20:47)
[2019-01-20] MEDS: traZODone HCL 100 MG TAB PO SCH (20:49)
[2019-01-21 07:53] LABS: Glucose,Whole Blood 93 mg/dL (75-99)
[2019-01-21] MEDS: INSULIN ASPART (NovoLOG) 100 UNIT/ML VIAL SQ SCH ×4 (08:22→20:32)
[2019-01-21] MEDS: SERTRALINE 100 MG TAB PO SCH (08:26)
[2019-01-21] MEDS: ASPIRIN 81 MG PO SCH (08:26)
[2019-01-21] MEDS: CYCLOBENZAPRINE 5 MG TAB PO SCH ×3 (08:26→21:41)
[2019-01-21] MEDS: risperiDONE 1 MG TAB PO SCH (08:26)
[2019-01-21] MEDS: PIOGLITAZONE 45 MG TAB PO SCH (08:26)
[2019-01-21] MEDS: LORazepam 1 MG TAB PO SCH ×3 (08:26→21:38)
[2019-01-21] MEDS: PROPRANOLOL 20 MG TAB PO SCH ×2 (08:27→21:38)
[2019-01-21] MEDS: hydrOXYzine PAMOATE 25 MG CAP PO PRN ×3 (08:27→21:42)
--- NOTE | 2019-01-21 12:20 | P.PN ---
Progress Note - Text Progress Note Date: 01/21/19 Interval History: Patient was seen wandering the hallways and was agreeable to speak to residential mortgage underwriter in the office. Patient states that she was doing fine on the medications however claims that she started having visual hallucinations of animals and other things that weren't supposed to be there and was getting scared and having difficulties with sleep. Patient states that she was also having stressors at home about her daughter who was "putting her problems on me" and also with her daughter's b oyfriend who has been living at her house recently. Patient states that she's had problems with her mood and anxiety. She states that she slept better last night. Patient is agreeable to start new medications including new antipsychotic after going over the risks versus benefits and side effects of the medication. Patient claims that she is trying to go to groups and participated us that she can. At this time patient denies any suicidal or homical ideations, intent or plan. Patient admitted to some visual hallucinations of animals at times, denies any auditory hallucinations and denies any paranoia or delusions. Patient denies any side effects from the medications and has been compliant with meds. Mental Status Exam: General Appearance: Patient is obese and appears to be stated age is alert, directable and cooperative. Fair hygiene and grooming. Behavior: Patient is calmly seated without any agitated behavior. Speech: Patient's speech is fluent and nonpressured. Mood/Affect: Mood is "depressed", affect is congruent and constricted. Admits to anxiety. Suicidality/Homicidality: Patient denies having any suicidal or homicidal ideation intent or plan. Perceptions: Patient admitted to visual hallucinations of animals at times. Though content/process: There is no evidence of any delusional thought content and thought process is linear and goal-directed. Poor insight. Memory and concentration: AOX3, grossly intact for the purposes of this session Judgment and insight: Poor insight and judgment. Assessment Schizoaffective disorder, depressive type PTSD Plan: -Patient continues to meet criteria for inpatient psychiatric admission for symptom stabilization and safety. Patient has signed adult voluntary form and medication consent and was placed in patient's chart. -Medications: After going over the different options for medications patient was agreeable to start Haldol 3 mg twice a day for psychosis and visual hallucinations. We'll continue with restarting her other home medications trazodone 300 mg nightly for insomnia/mood, Ativan 1 mg 3 times a day for anxiety, propranolol 20 mg twice a day for anxiety. We'll continue with Zoloft 200 mg daily for mood/anxiety. We'll continue with prazosin 4 mg daily at bedtime for nightmares. -Vistaril 50 mg 3 times a day when necessary for anxiety. -NRT -not need this patient does not smoke. -SW on board for discharge planning. Will plan on giving long-acting injection of antipsychotic prior to discharge.
[2019-01-21 12:41] LABS: Glucose,Whole Blood 82 mg/dL (75-99)
[2019-01-21] MEDS: HALOPERIDOL 1 MG TAB PO SCH ×2 (12:51→21:32)
[2019-01-21 17:43] LABS: Glucose,Whole Blood 87 mg/dL (75-99)
[2019-01-21 20:05] LABS: Glucose,Whole Blood 138 mg/dL (75-99)
[2019-01-21] MEDS: PRAZOSIN 1 MG CAP PO SCH (21:36)
[2019-01-21] MEDS: traZODone HCL 100 MG TAB PO SCH (21:38)
[2019-01-22 08:01] LABS: Glucose,Whole Blood 92 mg/dL (75-99)
[2019-01-22] MEDS: INSULIN ASPART (NovoLOG) 100 UNIT/ML VIAL SQ SCH ×4 (08:04→20:37)
[2019-01-22] MEDS: LORazepam 1 MG TAB PO SCH ×3 (10:32→21:38)
[2019-01-22] MEDS: HALOPERIDOL 1 MG TAB PO SCH ×2 (10:32→20:40)
[2019-01-22] MEDS: PROPRANOLOL 20 MG TAB PO SCH ×2 (10:32→20:39)
[2019-01-22] MEDS: CYCLOBENZAPRINE 5 MG TAB PO SCH ×3 (10:33→21:38)
[2019-01-22] MEDS: SERTRALINE 100 MG TAB PO SCH (10:33)
[2019-01-22] MEDS: ASPIRIN 81 MG PO SCH (10:33)
[2019-01-22] MEDS: PIOGLITAZONE 45 MG TAB PO SCH (10:33)
[2019-01-22] MEDS: hydrOXYzine PAMOATE 25 MG CAP PO PRN ×3 (10:34→21:39)
--- NOTE | 2019-01-22 11:33 | P.PN ---
Progress Note - Text Progress Note Date: 01/22/19 Interval History: Patient was seen during group participating in activities and was agreeable to speak to development writer in the office. Patient states that she is doing better today on the Haldol claims that it is helping with her visual hallucinations. Patient states that she only hears distant background noise as her auditory hallucination at this time. Patient is denying any side effects to the medication at this time. Patient claims that she is able to go to groups now is trying to go to more today and will be tomorrow. Patient states that her mood and anxiety are gradually improving. She states that she slept well last night. At this time patient denies any suicidal or homical ideations, intent or plan. Patient admits to background noise auditory hallucinations and denies any visual hallucinations at this time.. Patient denies any side effects from the medications and has been compliant with meds. Mental Status Exam: General Appearance: Patient is obese and appears to be stated age is alert, directable and cooperative. Fair hygiene and grooming. Behavior: Patient is calmly seated without any agitated behavior. Speech: Patient's speech is fluent and nonpressured. Mood/Affect: Mood is "getting better", affect is congruent and constricted. Suicidality/Homicidality: Patient denies having any suicidal or homicidal ideation intent or plan. Perceptions: Patient admits to distant auditory hallucinations. Denies any visual hallucinations. Though content/process: There is no evidence of any delusional thought content and thought process is linear and goal-directed. Memory and concentration: AOX3, grossly intact for the purposes of this session Judgment and insight: Improving mildly Assessment Schizoaffective disorder, depressive type PTSD Plan: -Patient continues to meet criteria for inpatient psychiatric admission for symptom stabilization and safety. Patient has signed adult voluntary form and medication consent and was placed in patient's chart. -Medications: Continue with Haldol 3 mg twice a day for psychosis. Continue with trazodone 300 mg nightly for insomnia/mood, Ativan 1 mg 3 times a day for anxiety, propranolol 20 mg twice a day for anxiety. We'll continue with Zoloft 200 mg daily for mood/anxiety. We'll continue with prazosin 4 mg daily at bedtime for nightmares. -Vistaril 50 mg 3 times a day when necessary for anxiety. -NRT -not need this patient does not smoke. -SW on board for discharge planning. Will plan on giving long-acting injection of antipsychotic prior to discharge.
[2019-01-22 12:53] LABS: Glucose,Whole Blood 86 mg/dL (75-99)
[2019-01-22 17:27] LABS: Glucose,Whole Blood 94 mg/dL (75-99)
[2019-01-22 20:10] LABS: Glucose,Whole Blood 136 mg/dL (75-99)
[2019-01-22] MEDS: PRAZOSIN 1 MG CAP PO SCH (20:39)
[2019-01-22] MEDS: traZODone HCL 100 MG TAB PO SCH (21:38)
[2019-01-23 07:59] LABS: Glucose,Whole Blood 105 mg/dL (75-99)
[2019-01-23] MEDS: INSULIN ASPART (NovoLOG) 100 UNIT/ML VIAL SQ SCH ×4 (08:23→20:55)
[2019-01-23] MEDS: LORazepam 1 MG TAB PO SCH ×3 (08:37→21:57)
[2019-01-23] MEDS: CYCLOBENZAPRINE 5 MG TAB PO SCH ×3 (08:37→21:55)
[2019-01-23] MEDS: ASPIRIN 81 MG PO SCH (08:37)
[2019-01-23] MEDS: HALOPERIDOL 1 MG TAB PO SCH (08:37)
[2019-01-23] MEDS: PROPRANOLOL 20 MG TAB PO SCH ×2 (08:38→21:55)
[2019-01-23] MEDS: PIOGLITAZONE 45 MG TAB PO SCH (08:38)
[2019-01-23] MEDS: SERTRALINE 100 MG TAB PO SCH (08:38)
[2019-01-23] MEDS: hydrOXYzine PAMOATE 25 MG CAP PO PRN ×3 (08:39→21:55)
--- NOTE | 2019-01-23 10:17 | P.PN ---
Progress Note - Text Progress Note Date: 01/23/19 Interval History: Patient was seen coming out of group and was agreeable to speak to telegraphic typewriter mechanic in the office. Patient stated that she had to leave group early as there is another patient that was being inappropriate and was cutting off the speaker which he really wanted to listen to. Patient spoke about being frustrated with the other patient who is "trying to push congregational on everybody". Patient states that she is doing better on the current medications however continues to complain of vagu e auditory hallucinations which she describes as background noise and states that her visual hallucinations have subsided. Patient is denying any side effects to the medication at this time. Patient claims that she is able to go to groups and try to participate. Patient states that her mood and anxiety are gradually improving however was requesting an increase in her Zoloft to help with her depression. She states that she slept well last night. At this time patient denies any suicidal or homical ideations, intent or plan. Patient admits to background noise auditory hallucinations and denies any visual hallucinations at this time.. Patient denies any side effects from the medications and has been compliant with meds. Mental Status Exam: General Appearance: Patient is obese and appears to be stated age is alert, directable and cooperative. Fair hygiene and grooming. Behavior: Patient is calmly seated without any agitated behavior. Speech: Patient's speech is fluent and nonpressured. Mood/Affect: Mood is "better", affect is congruent and constricted. Suicidality/Homicidality: Patient denies having any suicidal or homicidal ideation intent or plan. Perceptions: Patient admits to distant auditory hallucinations. Denies any visual hallucinations. Though content/process: There is no evidence of any delusional thought content and thought process is linear and goal-directed. Memory and concentration: AOX3, grossly intact for the purposes of this session Judgment and insight: Improving mildly Assessment Schizoaffective disorder, depressive type PTSD Plan: -Patient continues to meet criteria for inpatient psychiatric admission for symptom stabilization and safety. Patient has signed adult voluntary form and medication consent and was placed in patient's chart. -Medications: Increase Haldol 3 mg +5 mg for psychosis. Continue with trazodone 300 mg nightly for insomnia/mood, Ativan 1 mg 3 times a day for anxiety, propranolol 20 mg twice a day for anxiety. We'll increase Zoloft 250 mg daily for mood/anxiety. We'll continue with prazosin 4 mg daily at bedtime for nightmares. -Vistaril 50 mg 3 times a day when necessary for anxiety. -NRT -not need this patient does not smoke. -SW on board for discharge planning. Likely discharge in 1-2 days.
[2019-01-23 12:36] LABS: Glucose,Whole Blood 83 mg/dL (75-99)
[2019-01-23] MEDS: ACETAMINOPHEN TAB 325 MG TAB PO PRN (15:10)
[2019-01-23 17:32] LABS: Glucose,Whole Blood 90 mg/dL (75-99)
[2019-01-23 19:50] LABS: Glucose,Whole Blood 135 mg/dL (75-99)
[2019-01-23] MEDS: traZODone HCL 100 MG TAB PO SCH (21:00)
[2019-01-23] MEDS: PRAZOSIN 1 MG CAP PO SCH (21:00)
[2019-01-23] MEDS: HALOPERIDOL 5 MG TAB PO SCH (21:57)
[2019-01-24 07:49] LABS: Glucose,Whole Blood 101 mg/dL (75-99)
[2019-01-24] MEDS: INSULIN ASPART (NovoLOG) 100 UNIT/ML VIAL SQ SCH ×4 (07:55→20:06)
[2019-01-24] MEDS ORDERED: HALOPERIDOL 1 MG TAB PO SCH (09:00)
[2019-01-24] MEDS: LORazepam 1 MG TAB PO SCH ×3 (09:01→21:16)
[2019-01-24] MEDS: CYCLOBENZAPRINE 5 MG TAB PO SCH ×3 (09:01→21:06)
[2019-01-24] MEDS: ASPIRIN 81 MG PO SCH (09:01)
[2019-01-24] MEDS: SERTRALINE 100 MG TAB PO SCH (09:02)
[2019-01-24] MEDS: PIOGLITAZONE 45 MG TAB PO SCH (09:02)
[2019-01-24] MEDS: hydrOXYzine PAMOATE 25 MG CAP PO PRN ×3 (09:03→21:08)
[2019-01-24] MEDS: PROPRANOLOL 20 MG TAB PO SCH ×2 (09:07→21:09)
[2019-01-24 09:12] VITALS: BMI 41.4
[2019-01-24] MEDS ORDERED: HALOPERIDOL 2 MG TAB PO STA (10:16)
--- NOTE | 2019-01-24 10:23 | P.PN ---
Progress Note - Text Progress Note Date: 01/24/19 Interval History: Patient was seen in group and was agreeable to speak to food writer in the office. Patient stated that she was doing better overall on the current medications however states that the patient was aggravating her yesterday is doing the same thing today and causing her to feel anxious. She states that she is trying to avoid her as much as possible however the patient is stealing her spot in group and also in the dining roberto. Patient states that she is trying to avoid her and do the best to keep to herself. Patient states that she is doing better on the current medications however continues to hear minimal auditory hallucinations which she describes as background noise which he claims is improving and denies any visual hallucinations. Patient is denying any side effects to the medication at this time. Patient states that her mood and anxiety are gradually improving. She states that she slept well last night. At this time patient denies any suicidal or homical ideations, intent or plan. Patient admits to background noise auditory hallucinations and denies any visual hallucinations at this time.. Patient denies any side effects from the medications and has been compliant with meds. Mental Status Exam: General Appearance: Patient is obese and appears to be stated age is alert, directable and cooperative. Improving hygiene and grooming. Behavior: Patient is calmly seated without any agitated behavior. Speech: Patient's speech is fluent and nonpressured. Mood/Affect: Mood is improving mildly, affect is congruent and constricted. Suicidality/Homicidality: Patient denies having any suicidal or homicidal ideation intent or plan. Perceptions: Patient admits to distant auditory hallucinations. Denies any visual hallucinations. Though content/process: There is no evidence of any delusional thought content and thought process is linear and goal-directed. Preoccupied with her anxiety and other patient on the unit. Memory and concentration: AOX3, grossly intact for the purposes of this session Judgment and insight: Improving mildly Assessment Schizoaffective disorder, depressive type PTSD Plan: -Patient continues to meet criteria for inpatient psychiatric admission for symptom stabilization and safety. Patient has signed adult voluntary form and medication consent and was placed in patient's chart. -Medications: Increased Haldol 5 mg twice a day for psychosis. Continue with trazodone 300 mg nightly for insomnia/mood, Ativan 1 mg 3 times a day for anxiety, propranolol 20 mg twice a day for anxiety. We'll continue with Zoloft 250 mg daily for mood/anxiety. We'll continue with prazosin 4 mg daily at bedtime for nightmares. -Vistaril 50 mg 3 times a day when necessary for anxiety. -NRT -not need this patient does not smoke. -SW on board for discharge planning. Likely discharge tomorrow.
[2019-01-24 12:39] LABS: Glucose,Whole Blood 92 mg/dL (75-99)
[2019-01-24 17:22] LABS: Glucose,Whole Blood 85 mg/dL (75-99)
[2019-01-24 19:54] LABS: Glucose,Whole Blood 113 mg/dL (75-99)
[2019-01-24] MEDS: traZODone HCL 100 MG TAB PO SCH (21:07)
[2019-01-24] MEDS: PRAZOSIN 1 MG CAP PO SCH (21:09)
[2019-01-24] MEDS: HALOPERIDOL 5 MG TAB PO SCH (21:09)
[2019-01-25 06:32] VITALS: RESP 17; TEMP 98.6
[2019-01-25 07:44] LABS: Glucose,Whole Blood 105 mg/dL (75-99)
[2019-01-25] MEDS: INSULIN ASPART (NovoLOG) 100 UNIT/ML VIAL SQ SCH (08:15)
[2019-01-25] MEDS: PIOGLITAZONE 45 MG TAB PO SCH (08:16)
[2019-01-25] MEDS: ASPIRIN 81 MG PO SCH (08:16)
[2019-01-25] MEDS: SERTRALINE 100 MG TAB PO SCH (08:16)
[2019-01-25] MEDS: PROPRANOLOL 20 MG TAB PO SCH (08:16)
[2019-01-25] MEDS: CYCLOBENZAPRINE 5 MG TAB PO SCH (08:16)
[2019-01-25] MEDS: LORazepam 1 MG TAB PO SCH (08:19)
[2019-01-25] MEDS: hydrOXYzine PAMOATE 25 MG CAP PO PRN (08:19)
[2019-01-25] MEDS ORDERED: HALOPERIDOL 5 MG TAB PO SCH (09:00)
--- NOTE | 2019-01-25 10:00 | P.DS ---
Providers Date of admission: 01/18/19 23:22 Expected date of discharge: 01/25/19 Attending physician: Roland Stubbs MD Consults: 01/18/19 23:26 Consult Physician Routine Consulting Provider: Guillermo Xiao Consult Reason/Comments: medical management Do you want consulting provider notified?: Yes, Notify in am Primary care physician: Guillermo Xiao - Discharge Diagnosis(es) (1) Schizoaffective disorder, depressive type Current Visit: Yes Status: Acute Priority: High (2) PTSD (post-traumatic stress disorder) Current Visit: No Status: Acute Priority: Medium Hospital Course: Admission HPI: PAtient is a 44-year-old female patient with a hx of schizoaffective disorder. Patient admitted to the inpatient psychiatric unit [facility] on a voluntary basis with recent depression. Patient reports that she was trying to get a hold of her outpatient psychiatrist and he told her to come in to the hospital. She says she's been having problems hearing and seeing things exam. She has been consistent with taking her psychotropic medications. She reports her sleep has been okay. She's been hearing voices such as different banging sounds and scratching noises and and seeing things that aren't there like people talking to her. She admits to some thoughts of suicide lately and does relate that she has been depressed. Says been she's been hearing voices they do tell her to hurt herself also. She admits to anxiety, racing thoughts and irritability. She has had more than 10 inpatient psychiatric hospitalizations. She had a most recent discharge here in early December. She most recently has been on Risperdal 3 mg twice a day, Vistaril, trazodone, Zoloft and Ativan. She's been on the Zoloft for a little over a month and the Risperdal is fairly new as well. She was on Lamictal in the past which she says made her feel suicidal. She also took lithium which caused week and Depakote didn't work right. She has had 2 suicide attempts which were overdoses. She's been diagnosed with bipolar disorder and schizoaffective disorder. Hospital course: Upon admission to the unit patient was initially anxious, depressed and having visual/auditory hallucinations. Patient was however directable and agreeable to commence treatment. Patient got along well with other patients on the unit and followed unit protocol. Patient was compliant with the medications and denied any side effects throughout hospital course. Patient was re-started on her home medications including trazodone 300 mg nightly for insomnia/mood, Ativan 1 mg 3 times a day for anxiety, propranolol 20 mg twice a day for anxiety, prazosin 4 mg nightly for nightmares and Vistaril 50 mg 3 times a day when necessary for anxiety. Patient was titrated off of Risperdal and it was replaced with Haldol by mouth which was titrated up to 5 mg twice a day for psychosis. Patient was also restarted on Zoloft and titrated up to 250 mg daily for anxiety/mood. Patient spoke of her stressors and engaged in therapy both group and individual. Patient was also seen by medical team for history and physical exam. Throughout the course of the hospitalization patient gradually improved with regards to mood, anxiety, hallucinations, sleep and became future oriented with improved insight and judgment. On the day of discharge patient denied any suicidal or homicidal ideations intent or plan denied any auditory or visual hallucinations. Patient endorsed wanting to live for her health and family. The patient denied any access to guns or weapons. Patient denied any paranoia and did not endorse any delusions. Patient does not have a significant history of substance abuse however was counseled on abstaining from all substances including alcohol and marijuana. Patient was also counseled on the medications and need for regular compliance and was encouraged to follow-up with their outpatient appointment for mental health and also for primary care. Prior to discharge a family meeting will be arranged by child protective services social worker to answer any questions and ensure safety upon discharge. Mental status exam: General Appearance: Patient appears to be stated age is overweight, alert, pleasant, and cooperative. Patient is in no acute distress and has fair hygiene and grooming Behavior: Patient is calmly seated without any agitated behavior. Speech: Patient's speech is fluent and nonpressured. Mood/Affect: Patient reports their mood is "much better", affect is congruent and euthymic. Suicidality/Homicidality: Patient denies having any suicidal or homicidal ideation intent or plan. Perceptions: Patient denies any auditory or visual hallucinations. Though content/process: There is no evidence of any delusional thought content and thought process is linear and goal-directed. Memory and concentration: AOX3, grossly intact for the purposes of this session. Can spell "WORLD" backwards correctly. Judgment and insight: fair, improved Impression: Schizoaffective disorder, depressed type PTSD Plan: -Continue with discharge today as patient has improved and stabilized psychiatrically and is not currently an imminent threat to herself and/or others. -Continue medications: Patient to continue with Haldol 5 mg twice a day for psychosis, trazodone 300 mg nightly for insomnia/mood, Ativan 1 mg 3 times a day for anxiety, propranolol 20 mg twice a day for anxiety, Zoloft 250 mg daily for mood/anxiety, prazosin 4 mg daily at bedtime for nightmares. Continue with Vistaril 50 mg 3 times a day for anxiety when necessary. -Patient was counseled on the need for medication compliance and appropriate follow-up at mental health and also primary care for medical issues. Patient verbalized understanding and agreed. -Social work to arrange for and conduct family meeting to ensure safety upon discharge and answer any questions/concerns. Social work also to arrange for patients follow up appointments with [facility] for psychiatric care along with follow up with primary care provider. -Patient counseled on abstaining from recreational drugs and marijuana and alcohol. Was informed/educated on the adverse effects on their physical and mental health. Patient verbally agreed and understood -Patient was instructed to return to the hospital or seek immediate medical care if their psychiatric or medical systems do worsen or reoccur. Allergies Allergy/AdvReac Type Severity Reaction Status Date / Time celery Allergy Severe Anaphylaxis Verified 01/21/19 13:31 codeine Allergy Severe Anaphylaxis Verified 01/21/19 13:31 iodine Allergy Severe Rash/Hives Verified 01/21/19 13:31 Sulfa (Sulfonamide Allergy Severe Anaphylaxis Verified 01/21/19 13:31 Antibiotics) tramadol Allergy Severe Anaphylaxis Verified 01/21/19 13:31 gabapentin Allergy Intermediate Rash/Hives Verified 01/21/19 13:31 latex Allergy Intermediate Rash/Hives Verified 01/21/19 13:31 onion Allergy Intermediate Unknown Verified 01/21/19 13:31 shellfish derived Allergy Intermediate Rash/Hives Verified 01/21/19 13:31 basil Allergy Rash/Hives Verified 01/21/19 13:31 carrot Allergy Rash/Hives Verified 01/21/19 13:31 oregano Allergy Rash/Hives Verified 01/21/19 13:31 Pepper Allergy Rash/Hives Verified 01/21/19 13:31 tomato Allergy Rash/Hives Verified 01/21/19 13:31 CILANTRO Allergy Anaphylaxis Uncoded 01/05/19 12:53 Laboratory Results WBC 13.3 k/uL (3.8-10.6) H 01/19/19 08:49 RBC 5.04 m/uL (3.80-5.40) 01/19/19 08:49 Hgb 15.9 gm/dL (11.4-16.0) 01/19/19 08:49 Hct 48.2 % (34.0-46.0) H 01/19/19 08:49 MCV 95.7 fL (80.0-100.0) 01/19/19 08:49 MCH 31.5 pg (25.0-35.0) 01/19/19 08:49 MCHC 32.9 g/dL (31.0-37.0) 01/19/19 08:49 RDW 12.6 % (11.5-15.5) 01/19/19 08:49 Plt Count 370 k/uL (150-450) 01/19/19 08:49 Neutrophils % 81 % 01/19/19 08:49 Lymphocytes % 16 % 01/19/19 08:49 Monocytes % 2 % 01/19/19 08:49 Eosinophils % 0 % 01/19/19 08:49 Basophils % 1 % 01/19/19 08:49 Neutrophils # 10.7 k/uL (1.3-7.7) H 01/19/19 08:49 Lymphocytes # 2.1 k/uL (1.0-4.8) 01/19/19 08:49 Monocytes # 0.3 k/uL (0-1.0) 01/19/19 08:49 Eosinophils # 0.0 k/uL (0-0.7) 01/19/19 08:49 Basophils # 0.1 k/uL (0-0.2) 01/19/19 08:49 Sodium 140 mmol/L (137-145) 01/19/19 08:49 Potassium 3.8 mmol/L (3.5-5.1) 01/19/19 08:49 Chloride 100 mmol/L (98-107) 01/19/19 08:49 Carbon Dioxide 26 mmol/L (22-30) 01/19/19 08:49 Anion Gap 14 mmol/L 01/19/19 08:49 BUN 17 mg/dL (7-17) 01/19/19 08:49 Creatinine 0.66 mg/dL (0.52-1.04) 01/19/19 08:49 Est GFR (CKD-EPI)AfAm >90 (>60 ml/min/1.73 sqM) 01/19/19 08:49 Est GFR (CKD-EPI)NonAf >90 (>60 ml/min/1.73 sqM) 01/19/19 08:49 Glucose 184 mg/dL (74-99) H 01/19/19 08:49 POC Glucose (mg/dL) 105 mg/dL (75-99) H 01/25/19 07:42 POC Glu Engineering [employer] Programmer ID Elyse Christiansen 01/25/19 07:[address] Glu mg/dL 143 01/19/19 08:49 Hemoglobin A1c 6.6 % (4.0-6.0) H 01/19/19 08:49 Calcium 9.5 mg/dL (8.4-10.2) 01/19/19 08:49 Total Bilirubin 0.4 mg/dL (0.2-1.3) 01/19/19 08:49 AST 22 U/L (14-36) 01/19/19 08:49 ALT 17 U/L (9-52) 01/19/19 08:49 Alkaline Phosphatase 115 U/L (38-126) 01/19/19 08:49 Total Protein 7.8 g/dL (6.3-8.2) 01/19/19 08:49 Albumin 4.4 g/dL (3.5-5.0) 01/19/19 08:49 Triglycerides 145 mg/dL (<150) 01/19/19 08:49 Cholesterol 288 mg/dL (<200) H 01/19/19 08:49 LDL Cholesterol, Calc 179 mg/dL (0-99) H 01/19/19 08:49 HDL Cholesterol 80 mg/dL (40-60) H 01/19/19 08:49 TSH 1.720 mIU/L (0.465-4.680) 01/19/19 08:49 Urine Opiates Screen Not Detected (NotDetected) 01/18/19 20:07 Ur Oxycodone Screen Not Detected (NotDetected) 01/18/19 20:07 Urine Methadone Screen Not Detected (NotDetected) 01/18/19 20:07 Ur Propoxyphene Screen Not Detected (NotDetected) 01/18/19 20:07 Ur Barbiturates Screen Detected (NotDetected) H 01/18/19 20:07 U Tricyclic Antidepress Detected (NotDetected) H 01/18/19 20:07 Ur Phencyclidine Scrn Not Detected (NotDetected) 01/18/19 20:07 Ur Amphetamines Screen Not Detected (NotDetected) 01/18/19 20:07 U Methamphetamines Scrn Not Detected (NotDetected) 01/18/19 20:07 U Benzodiazepines Scrn Detected (NotDetected) H 01/18/19 20:07 Urine Cocaine Screen Not Detected (NotDetected) 01/18/19 20:07 U Marijuana (THC) Screen Detected (NotDetected) H 01/18/19 20:07 Vital Signs Temp 98.6 F 01/25/19 06:12 Pulse 100 01/25/19 10:03 Resp 17 01/25/19 06:12 BP 117/75 01/25/19 10:03 Pulse Ox 93 L 01/19/19 00:19 Intake & Output 01/24/19 01/25/19 01/25/19 18:59 06:59 18:59 Weight 93.1 kg Patient Condition at Discharge: Stable Plan - Discharge Summary New Discharge Prescriptions: New Haloperidol [Haldol] 5 mg PO BID 28 Days tab Sertraline [Zoloft] 250 mg PO DAILY 28 Days tab Continue Pioglitazone [Actos] 45 mg PO DAILY Aspirin EC [Ecotrin Low Dose] 81 mg PO DAILY #1 tablet. Dulaglutide [Trulicity] 1.5 mg SQ CERDA Cyclobenzaprine [Flexeril] 5 mg PO TID LORazepam [Ativan] 1 mg PO TID 14 Days tab traZODone HCL [Desyrel] 300 mg PO HS 28 Days tab Propranolol [Inderal] 20 mg PO BID 28 Days tab Prazosin [Minipress] 4 mg PO HS 28 Days cap hydrOXYzine PAMOATE [Vistaril] 50 mg PO TID@0900,1600,2200 PRN 28 Days cap PRN Reason: Anxiety Discontinued risperiDONE [RisperDAL] 3 mg PO BID 28 Days tablet Sertraline [Zoloft] 200 mg PO DAILY 28 Days tab Butalbital/Aspirin/Caffeine [Aprchp-Gxajuki-Fflvgngi 50-325-40 mg] 1 tab PO Q8H PRN PRN Reason: Migraine Headache Discharge Medication List Pioglitazone [Actos] 45 mg PO DAILY 05/22/18 [History] Aspirin EC [Ecotrin Low Dose] 81 mg PO DAILY #1 tablet. 12/10/18 [Rx] Cyclobenzaprine [Flexeril] 5 mg PO TID 01/18/19 [History] Dulaglutide [Trulicity] 1.5 mg SQ CERDA 01/18/19 [History] Haloperidol [Haldol] 5 mg PO BID 28 Days tab 01/25/19 [Rx] LORazepam [Ativan] 1 mg PO TID 14 Days tab 01/25/19 [Rx] Prazosin [Minipress] 4 mg PO HS 28 Days cap 01/25/19 [Rx] Propranolol [Inderal] 20 mg PO BID 28 Days tab 01/25/19 [Rx] Sertraline [Zoloft] 250 mg PO DAILY 28 Days tab 01/25/19 [Rx] hydrOXYzine PAMOATE [Vistaril] 50 mg PO TID@0900,1600,2200 PRN 28 Days cap 01/25/19 [Rx] traZODone HCL [Desyrel] 300 mg PO HS 28 Days tab 01/25/19 [Rx] Follow up Appointment(s)/Referral(s): Massimo Grossman [Other] - 01/28/19 11:30 am (Josie Sher ) Dr Grodon [Other] - 01/25/19 1:30 pm (Dr. Leyva) Guillermo Xiao MD [Primary Care Provider] - 1-2 days Hans Ring MD [STAFF PHYSICIAN] - 1 Week Patient Instructions/Handouts: Depression (DC), Schizoaffective Disorder (DC), Suicide Prevention (DC) Activity/Diet/Wound Care/Special Instructions: Activity and diet as tolerated. No guns or weapons in the home. Refrain from alcohol and street drugs not prescribed by your physician. Take all medications as prescribed, and attend all follow up appointments as scheduled. If in need of medication refills, please go to your primary care physician, or to your out patient psychiatric provider. If in crisis, please call , or go the nearest ER for an evaluation. Discharge Disposition: HOME SELF-CARE
[2019-01-25 10:04] VITALS: BP 117/75; PULSE 100
== END 2019-01-25 12:01 | disposition home or self-care (01) | DRG 885 ==
LOC: EC 19:51 → 3MHU 23:22
PROVIDERS: ADMIT Psychiatry & Neurology Psychiatry; ATTEND Psychiatry & Neurology Psychiatry
DX: F25.1 Schizoaffective disorder, depressive type (principal); R45.851 Suicidal ideations; F43.10 Post-traumatic stress disorder, unspecified; E11.9 Type 2 diabetes mellitus without complications; E66.01 Morbid (severe) obesity due to excess calories; E78.5 Hyperlipidemia, unspecified; G40.909 Epilepsy, unspecified, not intractable, without status epilepticus; G47.00 Insomnia, unspecified; G47.33 Obstructive sleep apnea (adult) (pediatric); I10 Essential (primary) hypertension; I25.2 Old myocardial infarction; J45.909 Unspecified asthma, uncomplicated; K21.9 Gastro-esophageal reflux disease without esophagitis; M79.7 Fibromyalgia; Q05.9 Spina bifida, unspecified; Z79.4 Long term (current) use of insulin; Z79.82 Long term (current) use of aspirin; Z79.899 Other long term (current) drug therapy; Z83.3 Family history of diabetes mellitus; Z87.891 Personal history of nicotine dependence; Z90.710 Acquired absence of both cervix and uterus; Z88.3 Allergy status to other anti-infective agents; Z91.040 Latex allergy status; Z88.5 Allergy status to narcotic agent; Z88.0 Allergy status to penicillin; Z91.013 Allergy to seafood; Z88.2 Allergy status to sulfonamides; Z88.8 Allergy status to other drugs, medicaments and biological substances; Z91.018 Allergy to other foods
CPT/HCPCS: 70450; 80053; 80061; 80306; 82075; 83036; 84443; 85025; 99285

== ENCOUNTER 2019-04-20 20:46 | Emergency (ER) | payer MEDICARE, OTHER ==
[2019-04-20 20:52] VITALS: RESP 18; TEMP 97.9
[2019-04-20 21:14] LABS: Glucose,Whole Blood 146 mg/dL (75-99)
--- NOTE | 2019-04-20 21:21 | ED ---
Chest Pain HPI - General Chief Complaint: Chest Pain Stated Complaint: L side pain, Weakness, fall Time Seen by Provider: 04/20/19 21:08 Source: patient Mode of arrival: wheelchair Limitations: no limitations - History of Present Illness Initial Comments: This patient is a 44-year-old woman who presents with a constellation of pains. She states she has been having left shoulder and arm pains going on for approximately one month. She has also been having pain throughout her entire left side, including her trunk and leg for over a week now. Finally the patient states she has been having some pains in the substernal and left side of her chest going on for most of today. Patient describes the pain center of her body as aching. She has not noted any relieving factors. They do seem to be a bit worse with movement. Pain is moderate in intensity, severe when she moves. MD Complaint: chest pain Onset/Timin -: hour(s) Onset: during rest Pain Location: substernal, left chest Pain Radiation: none Severity: moderate Quality: aching Consistency: constant Improves With: nothing Worsens With: movement Treatments Prior to Arrival: none - Related Data Home Medications Medication Instructions Recorded Confirmed Pioglitazone [Actos] 45 mg PO DAILY 05/22/18 01/18/19 Cyclobenzaprine [Flexeril] 5 mg PO TID 01/18/19 01/18/19 Dulaglutide [Trulicity] 1.5 mg SQ CERDA 01/18/19 01/18/19 Previous Rx's Medication Instructions Recorded Aspirin EC [Ecotrin Low Dose] 81 mg PO DAILY #1 tablet. 12/10/18 Haloperidol [Haldol] 5 mg PO BID 28 Days tab 01/25/19 LORazepam [Ativan] 1 mg PO TID 14 Days tab 01/25/19 Prazosin [Minipress] 4 mg PO HS 28 Days cap 01/25/19 Propranolol [Inderal] 20 mg PO BID 28 Days tab 01/25/19 Sertraline [Zoloft] 250 mg PO DAILY 28 Days tab 01/25/19 hydrOXYzine PAMOATE [Vistaril] 50 mg PO TID@0900,1600,2200 PRN 28 01/25/19 Days cap traZODone HCL [Desyrel] 300 mg PO HS 28 Days tab 01/25/19 Allergies Allergy/AdvReac Type Severity Reaction Status Date / Time celery Allergy Severe Anaphylaxis Verified 01/21/19 13:31 codeine Allergy Severe Anaphylaxis Verified 01/21/19 13:31 iodine Allergy Severe Rash/Hives Verified 01/21/19 13:31 Sulfa (Sulfonamide Allergy Severe Anaphylaxis Verified 01/21/19 13:31 Antibiotics) tramadol Allergy Severe Anaphylaxis Verified 01/21/19 13:31 gabapentin Allergy Intermediate Rash/Hives Verified 01/21/19 13:31 latex Allergy Intermediate Rash/Hives Verified 01/21/19 13:31 onion Allergy Intermediate Unknown Verified 01/21/19 13:31 shellfish derived Allergy Intermediate Rash/Hives Verified 01/21/19 13:31 basil Allergy Rash/Hives Verified 01/21/19 13:31 carrot Allergy Rash/Hives Verified 01/21/19 13:31 ketorolac [From Toradol] Allergy Rash/Hives Verified 04/20/19 23:18 oregano Allergy Rash/Hives Verified 01/21/19 13:31 Pepper Allergy Rash/Hives Verified 01/21/19 13:31 tomato Allergy Rash/Hives Verified 01/21/19 13:31 CILANTRO Allergy Anaphylaxis Uncoded 01/05/19 12:53 Review of Systems ROS Statement: Those systems with pertinent positive or pertinent negative responses have been documented in the HPI. ROS Other: All systems not noted in ROS Statement are negative. EKG Findings - EKG Results: EKG: interpreted by CARON WILLOUGHBY, sinus rhythm (Rate 96 bpm), normal axis, normal QRS, normal ST/T, no acute changes - PR, Pacemaker, Normal: Normal tracing: normal tracing Past Medical History Past Medical History: Asthma, Chest Pain / Angina, Diabetes Mellitus, Fibromyalgia, GERD/Reflux, Hyperlipidemia, Hypertension, Myocardial Infarction (PR), Neurologic Disorder, Pneumonia, Seizure Disorder, Sleep Apnea/CPAP/BIPAP Additional Past Medical History / Comment(s): NEUROPATHY, SPINA BIFIDA, GOUT, urinary retention, chronic pain to her back and legs Last Myocardial Infarction Date:: 2009 History of Any Multi-Drug Resistant Organisms: None Reported Past Surgical History: Section, Cholecystectomy, Hysterectomy, Orthopedic Surgery, Tonsillectomy Additional Past Surgical History / Comment(s): Arthroscopic LEFT KNEE, KIDNEY SURGERY AT AGE 7 Past Anesthesia/Blood Transfusion Reactions: Postoperative Nausea & Vomiting (PONV) Past Psychological History: Anxiety, Bipolar, Depression, PTSD, Schizophrenia Smoking Status: Never smoker Past Alcohol Use History: None Reported Past Drug Use History: Marijuana - Past Family History Mother Additional Family Medical History / Comment(s): Mother is alive at age 60 with history of RA, Fibromyalgia. Father Family Medical History: Diabetes Mellitus Additional Family Medical History / Comment(s): Father is alive at age 68 with history of diabetes and sleep apnea. Brother(s) Additional Family Medical History / Comment(s): Patient has 2 brothers. One is healthy and the other has mental health issues and chronic back pain. She does not have any sisters. She has one daughter with bipolar and ADHD. General Exam Limitations: no limitations General appearance: alert, in no apparent distress Head exam: Present: atraumatic, normocephalic Eye exam: Present: normal appearance. Absent: scleral icterus, conjunctival injection ENT exam: Present: mucous membranes dry Neck exam: Present: normal inspection, full ROM Respiratory exam: Present: chest wall tenderness. Absent: normal lung sounds bilaterally, respiratory distress, wheezes, rales, rhonchi, stridor, accessory muscle use, decreased breath sounds, prolonged expiratory Cardiovascular Exam: Present: regular rate (Rate is 96 at my exam), normal rhythm, normal heart sounds. Absent: systolic murmur, diastolic murmur, rubs, gallop GI/Abdominal exam: Present: soft. Absent: distended, tenderness, guarding, rebound, rigid, mass Extremities exam: Present: normal inspection, normal capillary refill. Absent: pedal edema, calf tenderness Back exam: Present: normal inspection. Absent: CVA tenderness (R), CVA tenderness (L) Neurological exam: Present: alert Skin exam: Present: warm, dry, intact, normal color. Absent: rash Course Vital Signs 04/20/19 20:50 Temperature 97.9 F Pulse Rate 111 H Respiratory 18 Rate Blood Pressure 126/83 O2 Sat by Pulse 97 Oximetry Disposition Clinical Impression: Chest pain Disposition: HOME SELF-CARE Condition: Good Instructions (If sedation given, give patient instructions): Chest Pain (ED) Is patient prescribed a controlled substance at d/c from ED?: No Referrals: Guillermo Xiao MD [Primary Care Provider] - 1-2 days
--- NOTE | 2019-04-20 21:38 | XR ---
EXAMINATION TYPE: XR chest 2V DATE OF EXAM: 04/20/2019 COMPARISON: 12/06/2018 HISTORY: Chest pain TECHNIQUE: FINDINGS: Heart is normal. Lungs are clear. Costophrenic angles are clear. Bony thorax appears intact . There is moderate calcification at the shoulder joints. Pulmonary vascularity is normal. There are chest leads. IMPRESSION: Normal chest. No change. Calcific tendinitis noted at the right and left shoulder joint
[2019-04-20 21:47] LABS: Basophils # (A) 0.1 k/uL (0-0.2); Basophils % (A) 1 %; Eosinophils # (A) 0.2 k/uL (0-0.7); Eosinophils % (A) 2 %; HGB 14.6 gm/dL (11.4-16.0); Lymphocytes # (A) 3.3 k/uL (1.0-4.8); Lymphocytes % (A) 35 %; MCH 29.5 pg (25.0-35.0); MCHC 33.1 g/dL (31.0-37.0); Mean Platelet Volume 7.1; Monocytes # (A) 0.5 k/uL (0-1.0); Monocytes % (A) 5 %; Neutrophils # (A) 5.3 k/uL (1.3-7.7); Neutrophils % (A) 56 %; Platelet Count 256 k/uL (150-450); RBC 4.94 m/uL (3.80-5.40); RDW 13.3 % (11.5-15.5); WBC 9.5 k/uL (3.8-10.6)
[2019-04-20 22:02] LABS: ALT 28 U/L (4-34); AST 29 U/L (14-36); African American GFR (CKD) >90 (>60 ml/min/1.73 sqM); Albumin 4.2 g/dL (3.5-5.0); Alkaline Phosphatase 88 U/L (38-126); Amylase 38 U/L (30-110); Anion Gap 9 mmol/L; Blood Urea Nitrogen 9 mg/dL (7-17); Carbon Dioxide 26 mmol/L (22-30); Chloride 105 mmol/L (98-107); D-Dimer 0.23 mg/L FEU (<0.60); Glucose 154 mg/dL (74-99); INR 0.9 (<1.2); Magnesium 1.5 mg/dL (1.6-2.3); Non-African American GFR(CKD) >90 (>60 ml/min/1.73 sqM); Partial Thromboplastin Time 25.5 sec (22.0-30.0); Potassium 4.1 mmol/L (3.5-5.1); Prothrombin Time 9.9 sec (9.0-12.0); Sodium 140 mmol/L (137-145); Total Bilirubin 0.3 mg/dL (0.2-1.3); Total Protein 7.1 g/dL (6.3-8.2)
[2019-04-20] MEDS ORDERED: KETOROLAC 30 MG/ML 1 ML VIAL IVP STA (22:57)
[2019-04-20] MEDS ORDERED: Acetaminophen-Codeine 300-30mg TAB PO STA (23:18)
[2019-04-21 02:20] VITALS: BP 125/74; PULSE 107
== END 2019-04-21 03:03 | disposition home or self-care (01) ==
LOC: EC 20:46
DX: R07.9 Chest pain, unspecified (principal); R53.1 Weakness; E11.40 Type 2 diabetes mellitus with diabetic neuropathy, unspecified; I10 Essential (primary) hypertension; G47.30 Sleep apnea, unspecified; I25.2 Old myocardial infarction; Z79.84 Long term (current) use of oral hypoglycemic drugs; Z79.899 Other long term (current) drug therapy; Z91.018 Allergy to other foods; Z88.5 Allergy status to narcotic agent; Z88.0 Allergy status to penicillin; Z88.2 Allergy status to sulfonamides; Z88.8 Allergy status to other drugs, medicaments and biological substances; Z91.040 Latex allergy status; Z91.013 Allergy to seafood; Z99.89 Dependence on other enabling machines and devices
CPT/HCPCS: 36415; 71046; 80053; 82150; 83690; 83735; 84484; 85025; 85379; 85610; 85730; 93005; 99285